=== PATIENT | female | born 1965 | race Caucasian/White ===

== ENCOUNTER 2022-05-01 22:55 | Emergency (ER) | payer OTHER ==
[2022-05-01 23:35] VITALS: TEMP 97.9
[2022-05-01] MEDS ORDERED: SODIUM CHLORIDE 0.9% 1,000 ML IV STA (23:58)
[2022-05-01] MEDS ORDERED: SODIUM CHLORIDE 0.9% 500 ML 500 ML IV STA (23:58)
[2022-05-01] MEDS ORDERED: ONDANSETRON 4 MG/2 ML VIAL IVP STA (23:58)
[2022-05-01] MEDS ORDERED: HYDROmorphone 0.5 MG/0.5 ML SYRINGE IVP STA (23:58)
--- NOTE | 2022-05-02 00:24 | ED ---
Abdominal Pain HPI - General Chief Complaint: Abdominal Pain Stated Complaint: left side abd pain Time Seen by Provider: 05/01/22 23:37 Source: patient, RN notes reviewed Mode of arrival: ambulatory Limitations: no limitations - History of Present Illness Initial Comments: 56-year-old female presents emergency Department chief complaint left flank pain. Patient states it was sudden onset of pain and swelling. Patient states that she had a kidney stone years ago but states this is not the same. Patient doesn't nausea vomiting states she has no dysuria denies any change in bowel habits states it's the left lower rates her left flank, back region. Patient reports no fever no sick contacts. - Related Data Previous Rx's Medication Instructions Recorded Albuterol Inhaler [Ventolin Hfa 2 puff INHALATION Q4HR PRN #8 gm 04/15/22 Inhaler] Albuterol Nebulized [Ventolin 2.5 mg INHALATION Q4H 8 Days #150 04/15/22 Nebulized] ml predniSONE 60 mg PO DAILY #30 tab 04/15/22 Allergies Allergy/AdvReac Type Severity Reaction Status Date / Time morphine Allergy Anaphylaxis Verified 05/01/22 23:30 NSAIDS (Non-Steroidal Allergy Rash/Hives Verified 05/01/22 23:30 Anti-Inflamma shellfish derived [Shellfish] Allergy Anaphylaxis Verified 05/01/22 23:30 Sulfa (Sulfonamide Allergy Rash/Hives Verified 05/01/22 23:30 Antibiotics) Review of Systems ROS Statement: Those systems with pertinent positive or pertinent negative responses have been documented in the HPI. ROS Other: All systems not noted in ROS Statement are negative. Past Medical History Past Medical History: Asthma, COPD Additional Past Medical History / Comment(s): kidney stones History of Any Multi-Drug Resistant Organisms: None Reported Past Surgical History: Cholecystectomy, Hysterectomy, Tonsillectomy Additional Past Surgical History / Comment(s): gastric bypass. lymphectomy left breast, Smoking Status: Never smoker Past Alcohol Use History: None Reported Past Drug Use History: None Reported General Exam Limitations: no limitations General appearance: alert, in no apparent distress Head exam: Present: atraumatic, normocephalic, normal inspection Eye exam: Present: normal appearance, PERRL, EOMI. Absent: scleral icterus, conjunctival injection, periorbital swelling ENT exam: Present: normal exam, mucous membranes moist Neck exam: Present: normal inspection, full ROM. Absent: tenderness, meningismus, lymphadenopathy Respiratory exam: Present: normal lung sounds bilaterally. Absent: respiratory distress, wheezes, rales, rhonchi, stridor Cardiovascular Exam: Present: regular rate, normal rhythm, normal heart sounds. Absent: systolic murmur, diastolic murmur, rubs, gallop, clicks GI/Abdominal exam: Present: soft, tenderness, normal bowel sounds. Absent: distended, guarding, rebound, rigid Back exam: Present: CVA tenderness (L). Absent: CVA tenderness (R) Neurological exam: Present: alert Course Vital Signs 05/01/22 05/02/22 23:30 00:30 Temperature 97.9 F Pulse Rate 72 50 L Respiratory 26 H 16 Rate Blood Pressure 162/87 163/89 O2 Sat by Pulse 98 100 Oximetry Medical Decision Making - Medical Decision Making Was pt. sent in by a medical professional or institution (, PA, SOLUTION ANALYST, urgent care, hospital, or longterm...) When possible be specific @ -No Did you speak to anyone other than the patient for history (EMS, parent, family, police, friend...)? What history was obtained from this source @ -No Did you review nursing and triage notes (agree or disagree)? Why? @ -I reviewed and agree with nursing and triage notes Were old charts reviewed (outside hosp., previous admission, EMS record, old EKG, old radiological studies, urgent care reports/EKG's, longterm records)? Report findings @ -No old charts were reviewed Differential Diagnosis (chest pain, altered mental status, abdominal pain women, abdominal pain men, vaginal bleeding, weakness, fever, dyspnea, syncope, headache, dizziness, GI bleed, back pain, seizure, CVA, palpatations, mental health, musculoskeletal)? @ -nDifferential Abdominal Pain Women: Appendicitis, Cholecystitis, diverticulosis, ischemic bowel, pancreatitis, hepatitis, UTI, gastroenteritis, AAA, incarcerated hernia, bowel obstruction, constipation, inflammatory bowel, hepatitis, peptic ulcer disease, splenic infarction, perforated viscus, vulvitis, ovarian torsion, PID, kidney stone, placenta abruption, this is not meant to be an all-inclusive list EKG interpreted by me (3pts min.). @ -None X-rays interpreted by me (1pt min.). @ -None done CT interpreted by me (1pt min.). @ -CT of abdomen and pelvis shows left ureteral calculi 4 mm U/S interpreted by me (1pt. min.). @ -None done What testing was considered but not performed or refused? (CT, X-rays, U/S, labs)? Why? @ -None What meds were considered but not given or refused? Why? @ -None Did you discuss the management of the patient with other professionals (professionals i.e. , PA, SOLUTION ANALYST, lab, RT, psych nurse, administrator social welfare, utility maintenance worker, teacher, chairman & chief executive officer, case coordinator)? Give summary @ -No Was smoking cessation discussed for >3mins.? @ -No Was critical care preformed (if so, how long)? @ -No Were there social determinants of health that impacted care today? How? (Homelessness, low income, unemployed, alcoholism, drug addiction, transportation, low edu. Level, literacy, decrease access to med. care, [facility], rehab)? @ -No Was there de-escalation of care discussed even if they declined (Discuss DNR or withdrawal of care, Hospice)? DNR status @ -No What co-morbidities impacted this encounter? (DM, HTN, Smoking, COPD, CAD, Cancer, CVA, ARF, Chemo, Hep., AIDS, mental health diagnosis, sleep apnea, morbid obesity)? @ -None Was patient admitted / discharged? Hospital course, mention meds given and route, prescriptions, significant lab abnormalities, going to OR and other pertinent info. @ -Discharge patient's pain is greatly improved this time patient has a 4 mm ureteral calculi. Patient discharged in stable condition with pain management return parameters were discussed. Undiagnosed new problem with uncertain prognosis? @ -No Drug Therapy requiring intensive monitoring for toxicity (Heparin, Nitro, Insulin, Cardizem)? @ -No Were any procedures done? @ -No Diagnosis/symptom? @ -Left ureteral calculi Acute, or Chronic, or Acute on Chronic? @ -Acute Uncomplicated (without systemic symptoms) or Complicated (systemic symptoms)? @ -Uncomplicated Side effects of treatment? @ -No Exacerbation, Progression, or Severe Exacerbation? @ -No Poses a threat to life or bodily function? How? (Chest pain, [place], [place], pneumonia, PE, COPD, DKA, ARF, appy, cholecystitis, CVA, Diverticulitis, Homicidal, Suicidal, threat to staff... and all critical care pts) @ -No - Lab Data Result diagrams: 05/02/22 00:19 05/02/22 00:19 Lab Results 05/02/22 05/02/22 05/02/22 Range/Units 00:19 00:19 02:29 WBC 12.0 H (3.8-10.6) k/uL RBC 4.93 (3.80-5.40) m/uL Hgb 14.8 (11.4-16.0) gm/dL Hct 46.3 H (34.0-46.0) % MCV 94.1 (80.0-100.0) fL MCH 30.0 (25.0-35.0) pg MCHC 31.9 (31.0-37.0) g/dL RDW 13.9 (11.5-15.5) % Plt Count 236 (150-450) k/uL MPV 7.8 Neutrophils % 59 % Lymphocytes % 33 % Monocytes % 4 % Eosinophils % 3 % Basophils % 0 % Neutrophils # 7.1 (1.3-7.7) k/uL Lymphocytes # 3.9 (1.0-4.8) k/uL Monocytes # 0.5 (0-1.0) k/uL Eosinophils # 0.3 (0-0.7) k/uL Basophils # 0.1 (0-0.2) k/uL Sodium 138 (137-145) mmol/L Potassium 5.5 H (3.5-5.1) mmol/L Chloride 109 H (98-107) mmol/L Carbon Dioxide 20 L (22-30) mmol/L Anion Gap 9 mmol/L BUN 19 H (7-17) mg/dL Creatinine 0.83 (0.52-1.04) mg/dL Est GFR (CKD-EPI)AfAm >90 (>60 ml/min/1.73 sqM) Est GFR (CKD-EPI)NonAf 81 (>60 ml/min/1.73 sqM) Glucose 137 H (74-99) mg/dL Calcium 9.7 (8.4-10.2) mg/dL Total Bilirubin 1.2 (0.2-1.3) mg/dL AST 47 H (14-36) U/L ALT 23 (4-34) U/L Alkaline Phosphatase 87 (38-126) U/L Total Protein 8.0 (6.3-8.2) g/dL Albumin 4.9 (3.5-5.0) g/dL Lipase 109 (23-300) U/L Urine Color Yellow Urine Appearance Clear (Clear) Urine pH 5.5 (5.0-8.0) Ur Specific Leonard 1.016 (1.001-1.035) Urine Protein Negative (Negative) Urine Glucose (UA) Negative (Negative) Urine Ketones Trace H (Negative) Urine Blood Moderate H (Negative) Urine Nitrite Negative (Negative) Urine Bilirubin Negative (Negative) Urine Urobilinogen <2.0 (<2.0) mg/dL Ur Leukocyte Esterase Negative (Negative) Urine RBC 92 H (0-5) /hpf Urine WBC 1 (0-5) /hpf Ur Squamous Epith Cells <1 (0-4) /hpf Calcium Oxalate Crystal Rare H (None) /hpf Urine Mucus Occasional H (None) /hpf Urine Yeast (Budding) Rare H (None) /hpf Disposition Clinical Impression: Left ureteral calculus Disposition: HOME SELF-CARE Condition: Stable Instructions (If sedation given, give patient instructions): Kidney Stones (ED) Additional Instructions: Please return to the Emergency Department if symptoms worsen or any other concerns. Is patient prescribed a controlled substance at d/c from ED?: No Referrals: None,Stated [Primary Care Provider] - 1-2 days Fabio Duke MD [STAFF PHYSICIAN] - 1-2 days Time of Disposition: 02:57
[2022-05-02 00:38] LABS: Basophils # (A) 0.1 k/uL (0-0.2); Basophils % (A) 0 %; Eosinophils # (A) 0.3 k/uL (0-0.7); Eosinophils % (A) 3 %; HCT 46.3 % (34.0-46.0); HGB 14.8 gm/dL (11.4-16.0); Lymphocytes # (A) 3.9 k/uL (1.0-4.8); Lymphocytes % (A) 33 %; MCHC 31.9 g/dL (31.0-37.0); MCV 94.1 fL (80.0-100.0); Mean Platelet Volume 7.8; Monocytes # (A) 0.5 k/uL (0-1.0); Monocytes % (A) 4 %; Neutrophils # (A) 7.1 k/uL (1.3-7.7); Neutrophils % (A) 59 %; Platelet Count 236 k/uL (150-450); RBC 4.93 m/uL (3.80-5.40); RDW 13.9 % (11.5-15.5)
[2022-05-02] MEDS ORDERED: HYDROmorphone 0.5 MG/0.5 ML SYRINGE IVP STA ×2 (00:43→01:38)
[2022-05-02 00:48] LABS: ALT 23 U/L (4-34); AST 47 U/L (14-36); African American GFR (CKD) >90 (>60 ml/min/1.73 sqM); Albumin 4.9 g/dL (3.5-5.0); Alkaline Phosphatase 87 U/L (38-126); Anion Gap 9 mmol/L; Blood Urea Nitrogen 19 mg/dL (7-17); Calcium 9.7 mg/dL (8.4-10.2); Carbon Dioxide 20 mmol/L (22-30); Chloride 109 mmol/L (98-107); Glucose 137 mg/dL (74-99); Lipase 109 U/L (23-300); Non-African American GFR(CKD) 81 (>60 ml/min/1.73 sqM); Potassium 5.5 mmol/L (3.5-5.1); Sodium 138 mmol/L (137-145); Total Bilirubin 1.2 mg/dL (0.2-1.3)
--- NOTE | 2022-05-02 01:01 | CT ---
EXAMINATION TYPE: CT abdomen pelvis wo con DATE OF EXAM: 05/02/2022 COMPARISON: None HISTORY: lt flank pain CT DLP: 563.2 mGycm Automated exposure control for dose reduction was used. Images obtained from the diaphragm to the floor the pelvis with no contrast. Lung bases are clear. No pleural effusion. Heart size is normal. No pericardial effusion. Liver spleen appear intact. There is previous gastric bariatric surgery. There are clips from cholecy stectomy. No evidence of pancreatic mass. The bile ducts are nondilated. Left kidney is enlarged with hydronephrosis and hydroureter. There is obstructing 4 mm calculus in th e lower left ureter. Bladder distends smoothly. No inguinal hernia. No free fluid in the pelvis. No r etroperitoneal adenopathy. Right kidney shows normal size and contour with no hydronephrosis. No adre nal mass. There is no mesenteric edema. No ascites or free air. No sign of a bowel obstruction. Appendix appear s to be posterior and appears normal. The lumbar vertebrae have normal alignment. Posterior element are intact. No compression fracture. [place] pelvis is intact. The hip joints are intact. IMPRESSION: Obstructing calculus in the lower left ureter with hydronephrosis and hydroureter. Normal appendix. Previous gastric bariatric surgery. 6 mm calculus upper pole left kidney.
[2022-05-02] MEDS ORDERED: diphenhydrAMINE 50 MG/ML 1 ML VIAL IVP STA (01:38)
[2022-05-02] MEDS ORDERED: KETOROLAC 15 MG/ML 1 ML VIAL IVP STA (01:38)
[2022-05-02] MEDS ORDERED: SODIUM CHLORIDE 0.9% 1,000 ML IV ONE (01:38)
[2022-05-02 02:52] LABS: Appearance,Urine Clear (Clear); Bilirubin,Urine Negative (Negative); Blood,Urine Moderate (Negative); Budding Yeast,Urine Rare /hpf; Calcium Oxalate Crystals,Urine Rare /hpf; Color,Urine Yellow; Glucose,Urine (UA) Negative (Negative); Ketones,Urine Trace (Negative); Leukocyte Esterase,Urine Negative (Negative); Mucus,Urine Occasional /hpf; Nitrite,Urine Negative (Negative); PH, Urine 5.5 (5.0-8.0); Protein,Urine Negative (Negative); RBC,Urine 92 /hpf (0-5); Specific Gravity,Urine 1.016 (1.001-1.035); Squamous Epithelial Cell,Urine <1 /hpf (0-4); Urobilinogen,Urine <2.0 mg/dL (<2.0); WBC,Urine 1 /hpf (0-5)
[2022-05-02] MEDS ORDERED: ONDANSETRON 4 MG ODT STARTER PACK 2 TAB BTL PO STA (02:56)
[2022-05-02] MEDS ORDERED: ACET/COD 300 MG/30 MG STARTER PACK 6 TAB BTL PO STA (02:56)
[2022-05-02 03:07] VITALS: BP 115/74; PULSE 84; RESP 18
== END 2022-05-02 03:06 | disposition home or self-care (01) ==
LOC: EC 22:55
DX: N13.2 Hydronephrosis with renal and ureteral calculous obstruction (principal); J44.9 Chronic obstructive pulmonary disease, unspecified; Z88.1 Allergy status to other antibiotic agents; Z88.2 Allergy status to sulfonamides; Z88.6 Allergy status to analgesic agent; Z79.899 Other long term (current) drug therapy
CPT/HCPCS: 99284 ×2; 96374 ×2; 96375 ×4; 96376 ×3; 96361 ×2; 36415; 80053; 83690; 85025; 81001; 74176; J1200; J2405; J1885; S0119; J1170

== ENCOUNTER 2022-05-08 09:06 | Emergency (ER) | payer OTHER ==
[2022-05-08 09:11] VITALS: TEMP 97.7
[2022-05-08] MEDS ORDERED: SODIUM CHLORIDE 0.9% 1,000 ML IV STA (09:47)
[2022-05-08] MEDS ORDERED: KETOROLAC 15 MG/ML 1 ML VIAL IVP STA (09:47)
[2022-05-08] MEDS ORDERED: ONDANSETRON 4 MG/2 ML VIAL IVP STA (09:47)
[2022-05-08] MEDS ORDERED: fentaNYL (PF) 50 MCG/ML 2 ML AMP IVP STA (09:50)
--- NOTE | 2022-05-08 09:53 | ED ---
General Adult HPI - General Chief complaint: Abdominal Pain Stated complaint: abd pain Time Seen by Provider: 05/08/22 09:27 Source: patient, RN notes reviewed, old records reviewed Mode of arrival: ambulatory Limitations: no limitations - History of Present Illness Initial comments: 56-year-old female presents emergency room with left flank pain since 5:30 this morning. was seen last week and told she had a kidney stone.. States pain had resolved and then recurred at 5:30 in the morning causing her to have nausea vomiting. Does have a history of COPD asthma and kidney stones. -: hour(s) (19) Location: left (flank) Severity scale (1-10): 9 Consistency: constant Improves with: none Worsens with: none Associated Symptoms: nausea/vomiting - Related Data Home Medications Medication Instructions Recorded Confirmed Acetaminophen [Tylenol Extra 1,000 mg PO Q6H PRN 05/08/22 05/08/22 Strength] Albuterol Inhaler [Ventolin Hfa 2 puff INHALATION RT-Q4H PRN 05/08/22 05/08/22 Inhaler] Albuterol Nebulized [Ventolin 2.5 mg INHALATION RT-Q4H PRN 05/08/22 05/08/22 Nebulized] Allergies Allergy/AdvReac Type Severity Reaction Status Date / Time clarithromycin [From Biaxin] Allergy Rash/Hives Verified 05/08/22 09:28 morphine Allergy Anaphylaxis Verified 05/08/22 09:28 NSAIDS (Non-Steroidal Allergy Rash/Hives Verified 05/08/22 09:28 Anti-Inflamma Penicillins Allergy Rash/Hives Verified 05/08/22 09:28 shellfish derived [Shellfish] Allergy Anaphylaxis Verified 05/08/22 09:28 Sulfa (Sulfonamide Allergy Rash/Hives Verified 05/08/22 09:28 Antibiotics) Review of Systems ROS Statement: Those systems with pertinent positive or pertinent negative responses have been documented in the HPI. ROS Other: All systems not noted in ROS Statement are negative. Past Medical History Past Medical History: Asthma, COPD Additional Past Medical History / Comment(s): kidney stones History of Any Multi-Drug Resistant Organisms: None Reported Past Surgical History: Cholecystectomy, Hysterectomy, Tonsillectomy Additional Past Surgical History / Comment(s): gastric bypass. lymphectomy left breast, Smoking Status: Never smoker Past Alcohol Use History: None Reported Past Drug Use History: None Reported General Exam Limitations: no limitations General appearance: alert, in no apparent distress Head exam: Present: atraumatic, normocephalic, normal inspection Eye exam: Present: normal appearance. Absent: scleral icterus, conjunctival injection, periorbital swelling, periorbital tenderness ENT exam: Present: mucous membranes moist Neck exam: Absent: tenderness, meningismus Respiratory exam: Absent: respiratory distress, accessory muscle use Cardiovascular Exam: Present: regular rate GI/Abdominal exam: Present: soft. Absent: distended Extremities exam: Present: full ROM, normal capillary refill. Absent: tender ness, pedal edema Back exam: Present: full ROM, CVA tenderness (L). Absent: CVA tenderness (R), paraspinal tenderness, vertebral tenderness, rash noted Neurological exam: Present: alert, oriented X3, CN II-XII intact Psychiatric exam: Present: normal affect, normal mood Skin exam: Present: warm, dry, normal color. Absent: cyanosis, diaphoretic, petechiae, pallor Course Vital Signs 05/08/22 05/08/22 09:09 11:38 Temperature 97.7 F 97.7 F Pulse Rate 87 68 Respiratory 24 18 Rate Blood Pressure 154/74 131/87 O2 Sat by Pulse 98 Oximetry Medical Decision Making - Medical Decision Making Patient presents with left flank pain since 5:30 this morning. Known history of kidney stone. History of asthma, COPD, kidney stones, cholecystectomy, hysterectomy Patient is afebrile. No evidence of leukocytosis. Electrolytes are unremarkable. Kidney functions normal. Urinalysis shows moderate blood with no evidence of infection. CT performed on shows an obstructing calculus in the lower left ureter with hydronephrosis and hydroureter. Normal appendix. 6 mm calculus upper pole left kidney. Patient was given IV fluids, Toradol, fentanyl and Zofran with relief of her pravin n. She is agreeable to being discharged home to follow-up with urology. Strict return parameters were discussed. Case was discussed with Dr. Holloway. Was pt. sent in by a medical professional or institution (, PA, EXTRUSION DIE REPAIR MANAGER, urgent care, hospital, or intermediate...) When possible be specific @ -No Did you speak to anyone other than the patient for history (EMS, parent, family, police, friend...)? What history was obtained from this source @ -No Did you review nursing and triage notes (agree or disagree)? Why? @ -I reviewed and agree with nursing and triage notes Were old charts reviewed (outside hosp., previous admission, EMS record, old EKG, old radiological studies, urgent care reports/EKG's, intermediate records)? Report findings @ -yes last ER visit and CT report Differential Diagnosis (chest pain, altered mental status, abdominal pain women, abdominal pain men, vaginal bleeding, weakness, fever, dyspnea, syncope, headache, dizziness, GI bleed, back pain, seizure, CVA, palpatations, mental health, musculoskeletal)? @ -Pyelonephritis, nephrolithiasis, cystitis, UTI this is not an all inclusive list EKG interpreted by me (3pts min.). @ -n/a X-rays interpreted by me (1pt min.). @ -None done CT interpreted by me (1pt min.). @ -None done U/S interpreted by me (1pt. min.). @ -None done What testing was considered but not performed or refused? (CT, X-rays, U/S, labs)? Why? @ -CT was considered however was performed on 05/02 showing left renal calculus. Patient states pain is the same as previous visit. Resolved after pain medication IV fluids What meds were considered but not given or refused? Why? @ -None Did you discuss the management of the patient with other professionals (professionals i.e. , PA, EXTRUSION DIE REPAIR MANAGER, lab, RT, psych nurse, social work program coordinator, plisse machine operator, teacher, worldwide chief creative officer, community case manager)? Give summary @ -No Was smoking cessation discussed for >3mins.? @ -No Was critical care preformed (if so, how long)? @ -No Were there social determinants of health that impacted care today? How? (Homelessness, low income, unemployed, alcoholism, drug addiction, transportation, low edu. Level, literacy, decrease access to med. care, [facility], rehab)? @ -No Was there de-escalation of care discussed even if they declined (Discuss DNR or withdrawal of care, Hospice)? DNR status @ -No What co-morbidities impacted this encounter? (DM, HTN, Smoking, COPD, CAD, Cancer, CVA, ARF, Chemo, Hep., AIDS, mental health diagnosis, sleep apnea, morbid obesity)? @ -Asthma, COPD, kidney stones, cholecystectomy, hysterectomy Was patient admitted / discharged? Hospital course, mention meds given and route, prescriptions, significant lab abnormalities, going to OR and other pertinent info. @ -Discharged Undiagnosed new problem with uncertain prognosis? @ -No Drug Therapy requiring intensive monitoring for toxicity (Heparin, Nitro, Insulin, Cardizem)? @ -No Were any procedures done? @ -No Diagnosis/symptom? @ -Left kidney stone Acute, or Chronic, or Acute on Chronic? @ -Acute Uncomplicated (without systemic symptoms) or Complicated (systemic symptoms)? @ -Uncomplicated Side effects of treatment? @ -No Exacerbation, Progression, or Severe Exacerbation? @ -No Poses a threat to life or bodily function? How? (Chest pain, [place], [place], pneumonia, PE, COPD, DKA, ARF, appy, cholecystitis, CVA, Diverticulitis, Homicidal, Suicidal, threat to staff... and all critical care pts) @ -No - Lab Data Result diagrams: 05/08/22 10:02 05/08/22 10:02 Lab Results 05/08/22 05/08/22 05/08/22 Range/Units 10:02 10:02 10:02 WBC 9.0 (3.8-10.6) k/uL RBC 4.77 (3.80-5.40) m/uL Hgb 14.5 (11.4-16.0) gm/dL Hct 44.4 (34.0-46.0) % MCV 93.1 (80.0-100.0) fL MCH 30.4 (25.0-35.0) pg MCHC 32.7 (31.0-37.0) g/dL RDW 13.5 (11.5-15.5) % Plt Count 239 (150-450) k/uL MPV 7.6 Neutrophils % 67 % Lymphocytes % 21 % Monocytes % 7 % Eosinophils % 3 % Basophils % 0 % Neutrophils # 6.0 (1.3-7.7) k/uL Lymphocytes # 1.9 (1.0-4.8) k/uL Monocytes # 0.6 (0-1.0) k/uL Eosinophils # 0.3 (0-0.7) k/uL Basophils # 0.0 (0-0.2) k/uL Sodium 140 (137-145) mmol/L Potassium 3.5 (3.5-5.1) mmol/L Chloride 108 H (98-107) mmol/L Carbon Dioxide 23 (22-30) mmol/L Anion Gap 9 mmol/L BUN 19 H (7-17) mg/dL Creatinine 0.93 (0.52-1.04) mg/dL Est GFR (CKD-EPI)AfAm 81 (>60 ml/min/1.73 sqM) Est GFR (CKD-EPI)NonAf 70 (>60 ml/min/1.73 sqM) Glucose 96 (74-99) mg/dL Plasma Lactic Acid Jeff (0.7-2.0) mmol/L Calcium 9.5 (8.4-10.2) mg/dL Total Bilirubin 0.7 (0.2-1.3) mg/dL AST 24 (14-36) U/L ALT 21 (4-34) U/L Alkaline Phosphatase 74 (38-126) U/L Total Protein 7.1 (6.3-8.2) g/dL Albumin 4.2 (3.5-5.0) g/dL Amylase 64 (30-110) U/L Lipase 105 (23-300) U/L Urine Color Yellow Urine Appearance Clear (Clear) Urine pH 5.5 (5.0-8.0) Ur Specific Angelica 1.033 (1.001-1.035) Urine Protein 1+ H (Negative) Urine Glucose (UA) Negative (Negative) Urine Ketones 1+ H (Negative) Urine Blood Moderate H (Negative) Urine Nitrite Negative (Negative) Urine Bilirubin 1+ H (Negative) Urine Urobilinogen 2.0 (<2.0) mg/dL Ur Leukocyte Esterase Negative (Negative) Urine RBC 119 H (0-5) /hpf Urine WBC 3 (0-5) /hpf Ur Squamous Epith Cells 2 (0-4) /hpf Urine Mucus Many H (None) /hpf 05/08/22 Range/Units 10:02 WBC (3.8-10.6) k/uL RBC (3.80-5.40) m/uL Hgb (11.4-16.0) gm/dL Hct (34.0-46.0) % MCV (80.0-100.0) fL MCH (25.0-35.0) pg MCHC (31.0-37.0) g/dL RDW (11.5-15.5) % Plt Count (150-450) k/uL MPV Neutrophils % % Lymphocytes % % Monocytes % % Eosinophils % % Basophils % % Neutrophils # (1.3-7.7) k/uL Lymphocytes # (1.0-4.8) k/uL Monocytes # (0-1.0) k/uL Eosinophils # (0-0.7) k/uL Basophils # (0-0.2) k/uL Sodium (137-145) mmol/L Potassium (3.5-5.1) mmol/L Chloride (98-107) mmol/L Carbon Dioxide (22-30) mmol/L Anion Gap mmol/L BUN (7-17) mg/dL Creatinine (0.52-1.04) mg/dL Est GFR (CKD-EPI)AfAm (>60 ml/min/1.73 sqM) Est GFR (CKD-EPI)NonAf (>60 ml/min/1.73 sqM) Glucose (74-99) mg/dL Plasma Lactic Acid Jeff 1.2 (0.7-2.0) mmol/L Calcium (8.4-10.2) mg/dL Total Bilirubin (0.2-1.3) mg/dL AST (14-36) U/L ALT (4-34) U/L Alkaline Phosphatase (38-126) U/L Total Protein (6.3-8.2) g/dL Albumin (3.5-5.0) g/dL Amylase (30-110) U/L Lipase (23-300) U/L Urine Color Urine Appearance (Clear) Urine pH (5.0-8.0) Ur Specific Angelica (1.001-1.035) Urine Protein (Negative) Urine Glucose (UA) (Negative) Urine Ketones (Negative) Urine Blood (Negative) Urine Nitrite (Negative) Urine Bilirubin (Negative) Urine Urobilinogen (<2.0) mg/dL Ur Leukocyte Esterase (Negative) Urine RBC (0-5) /hpf Urine WBC (0-5) /hpf Ur Squamous Epith Cells (0-4) /hpf Urine Mucus (None) /hpf Disposition Clinical Impression: Calculus of kidney Disposition: HOME SELF-CARE Condition: Good Instructions (If sedation given, give patient instructions): Kidney Stones (ED) Additional Instructions: Increase fluid intake. Follow-up with Dr. Baum this week. Return to the emergency room with any new or concerning symptoms. Is patient prescribed a controlled substance at d/c from ED?: No Referrals: Nonstaff,Physician [Primary Care Provider] - 1-2 days Hima Baum MD [STAFF PHYSICIAN] - 1-2 days Time of Disposition: 11:26
[2022-05-08 10:12] LABS: Basophils % (A) 0 %; Eosinophils # (A) 0.3 k/uL (0-0.7); Eosinophils % (A) 3 %; HCT 44.4 % (34.0-46.0); HGB 14.5 gm/dL (11.4-16.0); Lymphocytes # (A) 1.9 k/uL (1.0-4.8); Lymphocytes % (A) 21 %; MCH 30.4 pg (25.0-35.0); MCHC 32.7 g/dL (31.0-37.0); MCV 93.1 fL (80.0-100.0); Mean Platelet Volume 7.6; Monocytes # (A) 0.6 k/uL (0-1.0); Monocytes % (A) 7 %; Neutrophils % (A) 67 %; Platelet Count 239 k/uL (150-450); RBC 4.77 m/uL (3.80-5.40); RDW 13.5 % (11.5-15.5)
[2022-05-08 10:30] LABS: Albumin 4.2 g/dL (3.5-5.0); Calcium 9.5 mg/dL (8.4-10.2); Potassium 3.5 mmol/L (3.5-5.1); Total Bilirubin 0.7 mg/dL (0.2-1.3); Total Protein 7.1 g/dL (6.3-8.2)
[2022-05-08 10:57] LABS: Appearance,Urine Clear (Clear); Bilirubin,Urine 1+ (Negative); Blood,Urine Moderate (Negative); Color,Urine Yellow; Glucose,Urine (UA) Negative (Negative); Ketones,Urine 1+ (Negative); Leukocyte Esterase,Urine Negative (Negative); Mucus,Urine Many /hpf; Nitrite,Urine Negative (Negative); PH, Urine 5.5 (5.0-8.0); Protein,Urine 1+ (Negative); RBC,Urine 119 /hpf (0-5); Specific Gravity,Urine 1.033 (1.001-1.035); Squamous Epithelial Cell,Urine 2 /hpf (0-4); WBC,Urine 3 /hpf (0-5)
[2022-05-08 11:41] VITALS: BP 131/87; PULSE 68; RESP 18
== END 2022-05-08 11:38 | disposition home or self-care (01) ==
LOC: EC 09:06
DX: N20.0 Calculus of kidney (principal); J44.9 Chronic obstructive pulmonary disease, unspecified; Z88.0 Allergy status to penicillin; Z88.1 Allergy status to other antibiotic agents; Z88.2 Allergy status to sulfonamides; Z88.6 Allergy status to analgesic agent; Z88.8 Allergy status to other drugs, medicaments and biological substances
CPT/HCPCS: 36415; 80053; 82150; 83605; 83690; 85025; 81001; 99284; 96374; 96375 ×2; 96361; J2405; J3010; J1885

== ENCOUNTER 2022-06-02 10:45 | Emergency (ER) | payer OTHER ==
[2022-06-02 10:57] VITALS: TEMP 97.3
[2022-06-02] MEDS ORDERED: LORazepam 2 MG/ML INJ IV STA (11:12)
--- NOTE | 2022-06-02 11:15 | ED ---
General Adult HPI - General Chief complaint: Shortness of Breath Stated complaint: SOB Time Seen by Provider: 06/02/22 10:55 Source: patient, RN notes reviewed, old records reviewed Mode of arrival: ambulatory Limitations: no limitations - History of Present Illness Initial comments: This is a 56-year-old female presents emergency Department stating that she has a history of COPD. Patient states she's been feeling short of breath lately and been doing her nebulizer but she feels as though it's not working very well. Patient states she wants an inhaler and steroids if she can get because she thinks she needs it. Patient states she also has anxiety and this could be anxiety as well per patient denies chest pain or palpitations. Patient denies any fever chills or cough per patient denies any lightheadedness or dizziness. Patient denies abdominal pain patient denies nausea vomiting diarrhea. Patient denies any leg swelling or calf tenderness. - Related Data Home Medications Medication Instructions Recorded Confirmed Acetaminophen [Tylenol Extra 1,000 mg PO Q6H PRN 05/08/22 06/02/22 Strength] Albuterol Inhaler [Ventolin Hfa 2 puff INHALATION RT-Q4H PRN 05/08/22 06/02/22 Inhaler] Albuterol Nebulized [Ventolin 2.5 mg INHALATION RT-Q4H PRN 05/08/22 06/02/22 Nebulized] Previous Rx's Medication Instructions Recorded Albuterol Inhaler [Ventolin Hfa 1 - 2 puff INHALATION Q6HR PRN #2 06/02/22 Inhaler] each Allergies Allergy/AdvReac Type Severity Reaction Status Date / Time clarithromycin [From Biaxin] Allergy Rash/Hives Verified 06/02/22 12:41 morphine Allergy Anaphylaxis Verified 06/02/22 12:41 NSAIDS (Non-Steroidal Allergy Rash/Hives Verified 06/02/22 12:41 Anti-Inflamma Penicillins Allergy Rash/Hives Verified 06/02/22 12:41 shellfish derived [Shellfish] Allergy Anaphylaxis Verified 06/02/22 12:41 Sulfa (Sulfonamide Allergy Rash/Hives Verified 06/02/22 12:41 Antibiotics) Review of Systems ROS Statement: Those systems with pertinent positive or pertinent negative responses have been documented in the HPI. ROS Other: All systems not noted in ROS Statement are negative. Past Medical History Past Medical History: Asthma, COPD Additional Past Medical History / Comment(s): kidney stones History of Any Multi-Drug Resistant Organisms: None Reported Past Surgical History: Cholecystectomy, Hysterectomy, Tonsillectomy Additional Past Surgical History / Comment(s): gastric bypass. lymphectomy left breast, Smoking Status: Former smoker Past Alcohol Use History: None Reported Past Drug Use History: None Reported General Exam - General Exam Comments Initial Comments: GENERAL: Patient is well-developed and well-nourished. Patient is nontoxic and well- hydrated and is in no acute distress. ENT: Neck is soft and supple. No significant lymphadenopathy is noted. Oropharynx is clear. Moist mucous membranes. Neck has full range of motion without eliciting any pain. EYES: The sclera were anicteric and conjunctiva were pink and moist. Extraocular movements were intact and pupils were equal round and reactive to light. Eyelids were unremarkable. PULMONARY: Unlabored respirations. Good breath sounds bilaterally. No audible rales rhonchi or wheezing was noted. CARDIOVASCULAR: There is a regular rate and rhythm without any murmurs gallops or rubs. ABDOMEN: Soft and nontender with normal bowel sounds. SKIN: Skin is clear with no lesions or rashes and otherwise unremarkable. NEUROLOGIC: Patient is alert and oriented x3. Cranial nerves II through XII are grossly intact. Motor and sensory are also intact. Normal speech, volume and content. Symmetrical smile. MUSCULOSKELETAL: Normal extremities with adequate strength and full range of motion. LYMPHATICS: No significant lymphadenopathy is noted PSYCHIATRIC: Patient is mildly anxious. Limitations: no limitations Course Vital Signs 06/02/22 06/02/22 06/02/22 10:53 11:10 12:00 Temperature 97.3 F L Pulse Rate 70 83 72 Respiratory 18 22 20 Rate Blood Pressure 120/57 108/62 99/62 O2 Sat by Pulse 98 97 97 Oximetry Medical Decision Making - Medical Decision Making EKG as read by myself it shows a sinus rhythm at 70 bpm PA interval 153 QRSs 89 Q-T intervals 369 QTC is 390. Patient's EKG shows no ST segment elevation or depression. Was pt. sent in by a medical professional or institution (, PA, QUARTER TRIMMER, urgent care, hospital, or skilled nursing...) When possible be specific @ -No Did you speak to anyone other than the patient for history (EMS, parent, family, police, friend...)? What history was obtained from this source @ -No Did you review nursing and triage notes (agree or disagree)? Why? @ -I reviewed and agree with nursing and triage notes Were old charts reviewed (outside hosp., previous admission, EMS record, old EKG, old radiological studies, urgent care reports/EKG's, skilled nursing records)? Report findings @ -No old charts were reviewed Differential Diagnosis (chest pain, altered mental status, abdominal pain women, abdominal pain men, vaginal bleeding, weakness, fever, dyspnea, syncope, h eadache, dizziness, GI bleed, back pain, seizure, CVA, palpatations, mental health, musculoskeletal)? @ -Differential Dyspnea: Coronary syndrome, arrhythmia, tamponade, asthma, COPD, pulmonary embolism, pneumonia, pneumothorax, pulmonary effusion, anaphylaxis, diabetic ketoacidosis, flailed chest, pulmonary contusion, diaphragmatic rupture, anemia, neuromuscular, this is not meant to be an all-inclusive list. EKG interpreted by me (3pts min.). @ -As above X-rays interpreted by me (1pt min.). @ -Chest x-ray showed no acute abnormality CT interpreted by me (1pt min.). @ -None done U/S interpreted by me (1pt. min.). @ -None done What testing was considered but not performed or refused? (CT, X-rays, U/S, labs)? Why? @ -None What meds were considered but not given or refused? Why? @ -None Did you discuss the management of the patient with other professionals (professionals i.e. , PA, QUARTER TRIMMER, lab, RT, psych nurse, delinquency prevention social worker, delinquency prevention officer, teacher, [place] police officer, nurse case manager)? Give summary @ -No Was smoking cessation discussed for >3mins.? @ -No Was critical care preformed (if so, how long)? @ -No Were there social determinants of health that impacted care today? How? (Homelessness, low income, unemployed, alcoholism, drug addiction, transportation, low edu. Level, literacy, decrease access to med. care, group home, rehab)? @ -No Was there de-escalation of care discussed even if they declined (Discuss DNR or withdrawal of care, Hospice)? DNR status @ -No What co-morbidities impacted this encounter? (DM, HTN, Smoking, COPD, CAD, C ancer, CVA, ARF, Chemo, Hep., AIDS, mental health diagnosis, sleep apnea, morbid obesity)? @ -None Was patient admitted / discharged? Hospital course, mention meds given and route, prescriptions, significant lab abnormalities, going to OR and other pertinent info. @ -Patient was in no respiratory distress while in the emergency department she was oxygenating in the high 90s. Patient had no wheezing on examination. Patient's chest x-ray showed no acute abnormality. Patient will be sent home with an inhaler and the patient will follow-up with a physician when she can find one Undiagnosed new problem with uncertain prognosis? @ -No Drug Therapy requiring intensive monitoring for toxicity (Heparin, Nitro, Insulin, Cardizem)? @ -No Were any procedures done? @ -No Diagnosis/symptom? @ -COPD Acute, or Chronic, or Acute on Chronic? @ -Acute on chronic Uncomplicated (without systemic symptoms) or Complicated (systemic symptoms)? @ -Uncomplicated Side effects of treatment? @ -No Exacerbation, Progression, or Severe Exacerbation? @ -No Poses a threat to life or bodily function? How? (Chest pain, USA, SD, pneumonia, PE, COPD, DKA, ARF, appy, cholecystitis, CVA, Diverticulitis, Homicidal, Suicidal, threat to staff... and all critical care pts) @ -No - Lab Data Result diagrams: 06/02/22 11:32 06/02/22 11:32 Lab Results 06/02/22 06/02/22 Range/Units 11:32 11:32 WBC 5.2 (3.8-10.6) k/uL RBC 4.72 (3.80-5.40) m/uL Hgb 14.2 (11.4-16.0) gm/dL Hct 43.7 (34.0-46.0) % MCV 92.6 (80.0-100.0) fL MCH 30.1 (25.0-35.0) pg MCHC 32.6 (31.0-37.0) g/dL RDW 12.9 (11.5-15.5) % Plt Count 199 (150-450) k/uL MPV 7.6 Neutrophils % 60 % Lymphocytes % 26 % Monocytes % 6 % Eosinophils % 7 % Basophils % 1 % Neutrophils # 3.2 (1.3-7.7) k/uL Lymphocytes # 1.4 (1.0-4.8) k/uL Monocytes # 0.3 (0-1.0) k/uL Eosinophils # 0.3 (0-0.7) k/uL Basophils # 0.0 (0-0.2) k/uL Sodium 141 (137-145) mmol/L Potassium 3.9 (3.5-5.1) mmol/L Chloride 108 H (98-107) mmol/L Carbon Dioxide 26 (22-30) mmol/L Anion Gap 7 mmol/L BUN 11 (7-17) mg/dL Creatinine 0.70 (0.52-1.04) mg/dL Est GFR (CKD-EPI)AfAm >90 (>60 ml/min/1.73 sqM) Est GFR (CKD-EPI)NonAf >90 (>60 ml/min/1.73 sqM) Glucose 92 (74-99) mg/dL Calcium 9.4 (8.4-10.2) mg/dL Magnesium 2.0 (1.6-2.3) mg/dL Total Bilirubin 0.4 (0.2-1.3) mg/dL AST 24 (14-36) U/L ALT 15 (4-34) U/L Alkaline Phosphatase 70 (38-126) U/L Total Protein 6.5 (6.3-8.2) g/dL Albumin 3.8 (3.5-5.0) g/dL Disposition Clinical Impression: COPD (chronic obstructive pulmonary disease) Disposition: HOME SELF-CARE Condition: Good Instructions (If sedation given, give patient instructions): COPD (Chronic Obstructive Pulmonary Disease) (ED) Prescriptions: Albuterol Inhaler [Ventolin Hfa Inhaler] 1 - 2 puff INHALATION Q6HR PRN #2 each PRN Reason: Difficulty breathing Is patient prescribed a controlled substance at d/c from ED?: No Referrals: None,Stated [Primary Care Provider] - 1-2 days Time of Disposition: 12:44
--- NOTE | 2022-06-02 11:23 | XR ---
EXAMINATION TYPE: XR chest 2V DATE OF EXAM: 06/02/2022 COMPARISON: 04/15/2022 HISTORY: Shortness of breath TECHNIQUE: Frontal and lateral views of the chest are obtained. FINDINGS: There are a few surgical clips projecting over the right lateral chest wall. The heart size is normal. The cardiomediastinal silhouette and pulmonary vasculature are within nichelle l limits. There is no focal consolidation, significant pleural effusion, or pneumothorax. IMPRESSION: No acute cardiopulmonary process.
[2022-06-02 12:21] LABS: Basophils % (A) 1 %; Eosinophils # (A) 0.3 k/uL (0-0.7); Eosinophils % (A) 7 %; HCT 43.7 % (34.0-46.0); HGB 14.2 gm/dL (11.4-16.0); Lymphocytes # (A) 1.4 k/uL (1.0-4.8); Lymphocytes % (A) 26 %; MCH 30.1 pg (25.0-35.0); MCHC 32.6 g/dL (31.0-37.0); MCV 92.6 fL (80.0-100.0); Mean Platelet Volume 7.6; Monocytes # (A) 0.3 k/uL (0-1.0); Monocytes % (A) 6 %; Neutrophils # (A) 3.2 k/uL (1.3-7.7); Neutrophils % (A) 60 %; Platelet Count 199 k/uL (150-450); RBC 4.72 m/uL (3.80-5.40); RDW 12.9 % (11.5-15.5); WBC 5.2 k/uL (3.8-10.6)
[2022-06-02 12:28] LABS: ALT 15 U/L (4-34); AST 24 U/L (14-36); African American GFR (CKD) >90 (>60 ml/min/1.73 sqM); Albumin 3.8 g/dL (3.5-5.0); Alkaline Phosphatase 70 U/L (38-126); Anion Gap 7 mmol/L; Blood Urea Nitrogen 11 mg/dL (7-17); Calcium 9.4 mg/dL (8.4-10.2); Carbon Dioxide 26 mmol/L (22-30); Chloride 108 mmol/L (98-107); Glucose 92 mg/dL (74-99); Non-African American GFR(CKD) >90 (>60 ml/min/1.73 sqM); Potassium 3.9 mmol/L (3.5-5.1); Sodium 141 mmol/L (137-145); Total Bilirubin 0.4 mg/dL (0.2-1.3); Total Protein 6.5 g/dL (6.3-8.2)
[2022-06-02 12:33] VITALS: BP 99/62; PULSE 72; RESP 20
== END 2022-06-02 13:00 | disposition home or self-care (01) ==
LOC: EC 10:45
DX: J44.9 Chronic obstructive pulmonary disease, unspecified (principal); Z87.891 Personal history of nicotine dependence; Z88.0 Allergy status to penicillin; Z88.1 Allergy status to other antibiotic agents; Z88.2 Allergy status to sulfonamides; Z88.6 Allergy status to analgesic agent; Z90.49 Acquired absence of other specified parts of digestive tract
CPT/HCPCS: 36415; 93005; 80053; 83735; 85025; 71046; 99285; 96374; J2060

== ENCOUNTER 2022-07-11 09:25 | Day surgery (SDC) | payer OTHER ==
[2022-06-02 10:52] LABS: Basophils % (A) 1 %; Eosinophils # (A) 0.5 k/uL (0-0.7); Eosinophils % (A) 8 %; HCT 43.4 % (34.0-46.0); HGB 14.1 gm/dL (11.4-16.0); Lymphocytes # (A) 1.7 k/uL (1.0-4.8); Lymphocytes % (A) 30 %; MCH 30.5 pg (25.0-35.0); MCHC 32.4 g/dL (31.0-37.0); MCV 94.1 fL (80.0-100.0); Mean Platelet Volume 7.7; Monocytes # (A) 0.3 k/uL (0-1.0); Monocytes % (A) 6 %; Neutrophils # (A) 2.9 k/uL (1.3-7.7); Neutrophils % (A) 54 %; Platelet Count 194 k/uL (150-450); RBC 4.61 m/uL (3.80-5.40); WBC 5.5 k/uL (3.8-10.6)
[2022-06-02 11:08] LABS: ALT 16 U/L (4-34); AST 27 U/L (14-36); African American GFR (CKD) >90 (>60 ml/min/1.73 sqM); Albumin 4.1 g/dL (3.5-5.0); Alkaline Phosphatase 58 U/L (38-126); Anion Gap 8 mmol/L; Blood Urea Nitrogen 11 mg/dL (7-17); Calcium 9.4 mg/dL (8.4-10.2); Carbon Dioxide 27 mmol/L (22-30); Chloride 108 mmol/L (98-107); Glucose 104 mg/dL (74-99); Non-African American GFR(CKD) >90 (>60 ml/min/1.73 sqM); Potassium 4.2 mmol/L (3.5-5.1); Sodium 143 mmol/L (137-145); Total Bilirubin 0.6 mg/dL (0.2-1.3); Total Protein 7.1 g/dL (6.3-8.2)
[2022-06-02 12:52] LABS: Appearance,Urine Cloudy (Clear); Bacteria,Urine Rare /hpf; Bilirubin,Urine Negative (Negative); Blood,Urine Negative (Negative); Calcium Oxalate Crystals,Urine Few /hpf; Color,Urine Yellow; Glucose,Urine (UA) Negative (Negative); Ketones,Urine Negative (Negative); Leukocyte Esterase,Urine Small (Negative); Mucus,Urine Many /hpf; Nitrite,Urine Negative (Negative); PH, Urine 5.5 (5.0-8.0); Protein,Urine Trace (Negative); RBC,Urine <1 /hpf (0-5); Specific Gravity,Urine 1.022 (1.001-1.035); Squamous Epithelial Cell,Urine 5 /hpf (0-4); Urobilinogen,Urine <2.0 mg/dL (<2.0); WBC,Urine 2 /hpf (0-5)
[2022-07-06 09:33] VITALS: BMI 25.7
--- NOTE | 2022-07-11 07:52 | P.HPIHPCON ---
History of Present Illness H&P Date: 07/11/22 Chief Complaint: Left ureteral, renal stone This is a 56-year-old female with history of a 4 mm left-sided ureteral stone and a 6 mm left-sided renal stone. She symptomatic from her stone has failed medical expulsive therapy. Discussed with her the option of left-sided ure teroscopy with holmium laser. Discussed risk of bleeding infection and injury to the ureter. Risk of anesthesia was also discussed with her. She understood all the risk and agreed to proceed Consent for Procedure: I have explained the operation/procedure to the patient, including the risks, benefits, side effects, alternative therapies (including not receiving the prop osed treatment or service), the likelihood of the patient achieving his/her goals, and potential recuperation problems for the procedure/sedation/analgesia, as well as any blood products, if indicated. I also explained to the patient the risks, benefits and side effects of the alternatives, as well as the risks related to not receiving the proposed procedure, care, treatment, or services. Past Medical History Past Medical History: Asthma, Cancer, COPD, Eye Disorder, Hearing Disorder / Deafness Additional Past Medical History / Comment(s): Kidney stones, hx left breast cancer, cataracts, hard of hearing. History of Any Multi-Drug Resistant Organisms: None Reported Past Surgical History: Bariatric Surgery, Breast Surgery, Cholecystectomy, Ear Surgery, Hysterectomy, Tonsillectomy Additional Past Surgical History / Comment(s): Left breast lumpectomy and lymph node removal, left ear drum reconstruction. Past Anesthesia/Blood Transfusion Reactions: No Reported Reaction Smoking Status: Former smoker - Past Family History Mother Family Medical History: Cancer Additional Family Medical History / Comment(s): Brain cancer, pacemaker. Sister(s) Additional Family Medical History / Comment(s): "Heart issues" and had cardiac ablation. Medications and Allergies Home Medications Medication Instructions Recorded Confirmed Type Albuterol Nebulized [Ventolin 2.5 mg INHALATION RT-Q4H PRN 05/08/22 07/06/22 History Nebulized] Albuterol Inhaler [Ventolin Hfa 1 - 2 puff INHALATION Q6HR PRN #2 06/02/22 07/06/22 Rx Inhaler] each HYDROcodone/APAP 5-325MG [Sassafras 1 tab PO Q4HR PRN 07/06/22 07/06/22 History 5-325] Allergies Allergy/AdvReac Type Severity Reaction Status Date / Time adhesive tape Allergy Itching Verified 07/06/22 09:19 clarithromycin [From Biaxin] Allergy Rash/Hives Verified 07/06/22 09:19 morphine Allergy Anaphylaxis Verified 07/06/22 09:19 NSAIDS (Non-Steroidal Allergy Unknown Verified 07/06/22 09:19 Anti-Inflamma Penicillins Allergy Rash/Hives Verified 07/06/22 09:19 shellfish derived [Shellfish] Allergy Anaphylaxis Verified 07/06/22 09:19 Sulfa (Sulfonamide Allergy Rash/Hives Verified 07/06/22 09:19 Antibiotics) Surgical - Exam - General no distress, moderate pain - Eyes normal ocular movement, no pale - ENT normal nares, normal mucosa - Respiratory normal expansion, normal respiratory effort - Abdomen Abdomen: soft, tender (left flank) - Psychiatric oriented to time, oriented to person, oriented to place Results - Labs 06/02/22 10:31 06/02/22 10:31 Assessment and Plan Assessment: OR for left-sided ureteroscopy, holmium laser lithotripsy, stone basketing and stent insertion
[~2022-07-11 09:25] MED LIST: CIPROFLOXACIN/DEXTROSE PMX 400 MG in DEXTROSE/WATER 1 200ML.BAG IVPB PRN; DEXAMETHASONE SOD PHOSPHATE 4 MG/ML 1 ML VIAL IV ONE; HYDROmorphone 0.5 MG/0.5 ML SYRINGE IVP PRN; LACTATED RINGERS 1,000 ML IV SCH; LIDOCAINE 1% (10MG/ML) FOR IV START INTRADERMA PRN; MIDAZOLAM 2 MG/2 ML VIAL IV PRN; ONDANSETRON 4 MG/2 ML VIAL IVP ONE
--- NOTE | 2022-07-11 09:54 | XR ---
EXAMINATION TYPE: XR KUB DATE OF EXAM: 07/11/2022 9:38 AM INDICATION: Patient age:Female; 56 years old; Reason for study: KIDNEY STONE. COMPARISON: CT 05/02/2022 TECHNIQUE: One radiographic view of the abdomen was obtained. FINDINGS: Suture material in the left mid abdomen. Clips present projecting of the pelvis. Right uppe r quadrant clips. The bowel gas pattern is nonspecific without dilated loops of small or large bowel. There is no evidence for organomegaly or pneumoperitoneum. The osseous structures are intact. Pelv ic phleboliths are present. Fecal material and gas are demonstrated throughout the colon and rectum. IMPRESSION: 1. No definitive renal calculus visualized. Consider CT for confirmation. 2. Nonspecific bowel gas pattern without radiographic evidence for acute process.
[2022-07-11] MEDS ORDERED: MIDAZOLAM 2 MG/2 ML VIAL ONE (11:26)
[2022-07-11] MEDS ORDERED: PROPOFOL 10 MG/ML 20 ML VIAL IV ONE (11:26)
[2022-07-11] MEDS ORDERED: fentaNYL (PF) 50 MCG/ML 2 ML AMP ONE (11:26)
[2022-07-11] MEDS ORDERED: LIDOCAINE 2% INJ 20 MG/ML (2 ML VIAL) ONE (11:26)
[2022-07-11] MEDS ORDERED: IOPAMIDOL-370 100ML BTL MISCELLANE ONE (12:04)
[2022-07-11 12:30] VITALS: TEMP 97
--- NOTE | 2022-07-11 12:50 | P.OP ---
Date of Procedure: 07/11/22 Preoperative Diagnosis: Left ureteral, renal stone Postoperative Diagnosis: Left renal stone Procedure(s) Performed: Cystoscopy, left ureteroscopy, holmium laser lithotripsy and stent insertion Implants: 7-Estonian by 24 cm stent in the left ureter Anesthesia: AIDA Surgeon: Olivier Crowley Pathology: none sent Condition: stable Disposition: PACU Indications for Procedure: This is a 56-year-old female with history of a 4 mm left-sided ureteral stone and a 6 mm left-sided renal stone. She symptomatic from her stone has failed medical expulsive therapy. Discussed with her the option of left-sided ureteroscopy with holmium laser. Discussed risk of bleeding infection and injur y to the ureter. Risk of anesthesia was also discussed with her. She understood all the risk and agreed to proceed Operative Findings: Multiple small stones within the lower pole of the kidney that were dusted Description of Procedure: Patient brought to the operating room, general anesthesia was induced. She was prepped and draped in sterile fashion and placed in dorsal lithotomy position. Cystoscopy fitted with 21-Estonian sheath was inserted per urethra, cystoscopy was performed which showed no abnormality within the bladder. Attention was then carried to the left ureteral orifice, semirigid ureteroscope was advanced up the left ureteral orifice and a narrowing was encountered in the distal ureter, I advanced a wire through the ureteroscope and I was able to advance the ureteroscope past the narrowing, the ureteroscope was advanced all the way up to the proximal ureter which showed no evidence of stones, pullback ureteroscopy wa s performed which showed no evidence of stones or injury to the ureter, there was edema at the site of the narrowing but otherwise no additional abnormalities. As ureteroscope was withdrawn, a sensor wire was advanced through. Next an 1113 Estonian access sheath was passed over the wire into the proximal ureter. Next the flexible ureteroscope was inserted through the access sheath, renoscopy was performed which showed multiple small stones within the lower pole. Using the holmium laser the stones were dusted, repeat renoscopy showed no sizable stones or injury to the kidney. Pullback ureteroscopy was performed which showed no injury to the ureter or any ureteral stones, as ureteroscope was withdrawn, s sensor wire was advanced through. Next a ureteral stent was passed over the wire, the proximal curl was visualized on fluoroscopy and the distal curl was visualized using the cystoscope. The bladder was emptied at the end of the case. Patient tolerated procedure well was taken to recovery in stable condition
--- NOTE | 2022-07-11 12:52 | FL ---
Intraoperative/procedural fluoroscopic services were provided. Total fluoroscopy time is 32 seconds w ith a total of 4 submitted images to PACS. Please see the operative/procedural note for further detai ls. DAP: [id number] [id number]
[2022-07-11 13:33] VITALS: RESP 16
[2022-07-11 13:46] VITALS: BP 128/69; PULSE 88
== END 2022-07-11 14:14 | disposition home or self-care (01) ==
LOC: OR 09:25
PROVIDERS: ATTEND Urology
DX: N20.1 Calculus of ureter (principal); J44.9 Chronic obstructive pulmonary disease, unspecified; H91.90 Unspecified hearing loss, unspecified ear; Z90.710 Acquired absence of both cervix and uterus; Z98.84 Bariatric surgery status; Z90.49 Acquired absence of other specified parts of digestive tract; Z90.89 Acquired absence of other organs; Z85.3 Personal history of malignant neoplasm of breast; Z87.891 Personal history of nicotine dependence; Z79.51 Long term (current) use of inhaled steroids; Z88.5 Allergy status to narcotic agent; Z88.0 Allergy status to penicillin; Z88.1 Allergy status to other antibiotic agents; Z88.2 Allergy status to sulfonamides; Z88.6 Allergy status to analgesic agent; Z91.048 Other nonmedicinal substance allergy status
CPT/HCPCS: 52356; 80053; 85025; 81001; 87086; 74420; 74018; C2625; C1769; J2250; J1100; J2405; J3010; J0744; J2704; Q9967; J2001

== ENCOUNTER → 2022-09-19 | Outpatient (CLI) | payer OTHER ==
--- NOTE | 2022-09-19 11:37 | MM ---
Reason for Exam: Hx of breast cancer, conservation therapy. Last mammogram was performed 1 year(s) and 5 month(s) ago. Patient History: Menarche at age 15. First Full-Term at age 32. Late child-bearing (after 32). Postmenopausal. Breast cancer, right, age 54. 2019, Lumpectomy on the Right side. Prior Study Comparison: 10/21/2019 Bilateral Diagnostic Mammogram, Unknown. 04/20/2020 Bilateral Diagnostic Mammogram, Unknown. 04/21/2021 Bilateral Diagnostic Mammogram, Unknown. Tissue Density: The breast tissue is heterogeneously dense. This may lower the sensitivity of mammography. Findings: Analyzed By CAD. Postoperative changes of lumpectomy right breast remain stable. No evidence for recurrent or residual mass. No masses seen within either breast. No suspicious microcalcifications. Overall Assessment: Benign, BI-RAD 2 Management: Diagnostic Mammogram of both breasts in 1 year. . Results were given to the patient verbally at the time of exam. Patient should continue monthly self-breast exams. A clinical breast exam by your physician is recommended on an annual basis. This exam should not preclude additional follow-up of suspicious palpable abnormalities. Note on Jeanette scores and lifetime risk: 1. A Jeanette score greater than 3% is considered moderate risk. If this is the case, consider specialist referral to assess eligibility for a risk reducing agent. 2. If overall lifetime risk for the development of breast cancer is 20% or higher, the patient may qualify for future screening with alternating mammogram and breast MRI. Electronically signed and approved by: Nakul Mcdonald M.D. Radiologis
== END | disposition home or self-care (01) ==
LOC: RADMAMWWP 10:59
PROVIDERS: ATTEND Family Medicine
DX: C50.911 Malignant neoplasm of unspecified site of right female breast (principal); Z78.0 Asymptomatic menopausal state
CPT/HCPCS: 77066; G0279; 77062

== ENCOUNTER 2022-09-26 02:57 | Inpatient (IN) | payer OTHER ==
[2022-09-26] MEDS ORDERED: ETOMIDATE 2 MG/ML 10 ML VIAL IVP STA (03:22)
[2022-09-26] MEDS ORDERED: SUCCINYLCHOLINE CHLORIDE 200 MG/10 ML VIAL IV STA (03:22)
--- NOTE | 2022-09-26 03:25 | ED ---
SOB HPI - General Chief Complaint: Shortness of Breath Stated Complaint: RAJNA Time Seen by Provider: 09/26/22 03:05 Source: patient Mode of arrival: wheelchair Limitations: altered mental status - History of Present Illness Initial Comments: This patient is a 57-year-old woman here to have evaluation for respiratory distress. All the history comes from the patient's as she had severe dyspnea and also appeared delirious. She was not answering questions. Patient's states that symptoms had come on fairly acutely this evening. She did try using home albuterol. They considered coming to the hospital around 10 but state that every time she comes to the hospital she just receives albuterol so they tried using that again at home. Patient's states that when she began to have color change, he states she was turning blue, they decided come to emergency department. MD Complaint: shortness of breath -: hour(s) Consistency: constant Improves With: nothing Worsens With: nothing Known History Of: COPD Associated Symptoms: cough, sputum production Treatments Prior to Arrival: bronchodilator - Related Data Home Oxygen Therapy: No Home Medications Medication Instructions Recorded Confirmed Albuterol Nebulized [Ventolin 2.5 mg INHALATION RT-Q4H PRN 05/08/22 09/26/22 Nebulized] Umeclidinium Brm/Vilanterol Tr 1 puff INHALATION RT-DAILY 07/11/22 09/26/22 [Anoro Ellipta 62.5-25 Mcg INH] Albuterol Inhaler [Ventolin Hfa 1 - 2 puff INHALATION RT-Q6H PRN 09/26/2209/26 Inhaler] Anastrozole 1 mg PO DAILY 09/26/22 09/26/22 Previous Rx's Medication Instructions Recorded predniSONE [Deltasone] See Taper PO DAILY 12 Days #16 tab 10/01/22 Allergies Allergy/AdvReac Type Severity Reaction Status Date / Time adhesive tape Allergy Itching Verified 09/26/22 08:31 clarithromycin [From Biaxin] Allergy Rash/Hives Verified 09/26/22 08:31 morphine Allergy Anaphylaxis Verified 09/26/22 08:31 NSAIDS (Non-Steroidal Allergy Unknown Verified 09/26/22 08:31 Anti-Inflamma Penicillins Allergy Rash/Hives Verified 09/26/22 08:31 shellfish derived [Shellfish] Allergy Anaphylaxis Verified 09/26/22 08:31 Sulfa (Sulfonamide Allergy Rash/Hives Verified 09/26/22 08:31 Antibiotics) Review of Systems ROS Statement: Those systems with pertinent positive or pertinent negative responses have been documented in the HPI. ROS Other: All systems not noted in ROS Statement are negative. Limitations: ROS unobtainable due to patients medical condition Past Medical History Past Medical History: Asthma, Cancer, COPD, Eye Disorder, Hearing Disorder / Deafness Additional Past Medical History / Comment(s): Kidney stones, hx left breast cancer, cataracts, hard of hearing. History of Any Multi-Drug Resistant Organisms: None Reported Past Surgical History: Bariatric Surgery, Breast Surgery, Cholecystectomy, Ear Surgery, Hysterectomy, Tonsillectomy Additional Past Surgical History / Comment(s): Left breast lumpectomy and lymph node removal, left ear drum reconstruction. Past Alcohol Use History: None Reported - Past Family History Mother Additional Family Medical History / Comment(s): Brain cancer, pacemaker. Sister(s) Additional Family Medical History / Comment(s): "Heart issues" and had cardiac ablation. General Exam Limitations: no limitations General appearance: obtunded Head exam: Present: atraumatic, normocephalic Eye exam: Present: normal appearance. Absent: scleral icterus, conjunctival injection ENT exam: Present: mucous membranes dry Neck exam: Present: normal inspection. Absent: tenderness Respiratory exam: Present: respiratory distress, wheezes, rales, accessory muscle use. Absent: rhonchi, stridor Cardiovascular Exam: Present: tachycardia, normal heart sounds. Absent: systolic murmur, diastolic murmur, rubs, gallop GI/Abdominal exam: Present: soft. Absent: distended, tenderness, guarding, rebound, rigid, mass Extremities exam: Present: normal inspection Back exam: Present: normal inspection. Absent: CVA tenderness (R), CVA tenderness (L) Neurological exam: Present: altered Skin exam: Present: warm, dry, mottled. Absent: rash Course Vital Signs 09/26/22 09/26/22 09/26/22 03:04 03:11 03:20 Temperature 97.8 F Pulse Rate 123 H 110 H Respiratory 30 H 16 Rate Blood Pressure 137/11 148/83 O2 Sat by Pulse 55 L 98 Oximetry Fraction of 100 Inspired Oxygen (FIO2) 09/26/22 09/26/22 09/26/22 03:30 03:40 03:42 Temperature Pulse Rate 120 H 112 H Respiratory 14 28 H 33 H Rate Blood Pressure 150/69 120/95 O2 Sat by Pulse 99 99 56 L Oximetry Fraction of Inspired Oxygen (FIO2) 09/26/22 09/26/22 09/26/22 03:50 04:00 04:14 Temperature Pulse Rate 109 H 107 H Respiratory 22 21 Rate Blood Pressure 119/87 110/79 O2 Sat by Pulse 100 100 Oximetry Fraction of 50 Inspired Oxygen (FIO2) 09/26/22 09/26/22 09/26/22 05:00 06:00 07:00 Temperature Pulse Rate 98 80 81 Respiratory 19 20 18 Rate Blood Pressure 94/60 101/76 106/93 O2 Sat by Pulse 100 100 100 Oximetry Fraction of Inspired Oxygen (FIO2) 09/26/22 09/26/22 09/26/22 07:35 07:55 07:58 Temperature 97.2 F L Pulse Rate 72 Respiratory 20 Rate Blood Pressure 96/51 O2 Sat by Pulse 100 Oximetry Fraction of 50 50 Inspired Oxygen (FIO2) 09/26/22 09/26/22 09/26/22 08:00 08:05 08:57 Temperature Pulse Rate 69 69 69 Respiratory 0 L 20 20 Rate Blood Pressure 99/61 108/77 O2 Sat by Pulse 100 99 Oximetry Fraction of 50 Inspired Oxygen (FIO2) 09/26/22 09/26/22 09:00 09:05 Temperature 97 F L Pulse Rate 75 74 Respiratory 17 20 Rate Blood Pressure 95/42 O2 Sat by Pulse 100 Oximetry Fraction of 50 Inspired Oxygen (FIO2) Procedures - Intubation Sedative: Etomidate Paralytic: Succinylcholine Laryngoscope: Celena Size: 3 ET Tube Size: 8 Tube Secured Depth (cm): 20 Tube Secured Location: lips Tube Placement Confirmation: visualized tube passing through cords, equal breath sounds bilaterally, no breath sounds over epigastrium, confirmation by capnometry Patient Tolerated Procedure: well, no complications Intubation Complications: none Medical Decision Making - Medical Decision Making Patient is 57-year-old woman presenting with severe respiratory distress. She was becoming obtunded shortly after arrival and was having cardiac arrhythmia. She was having what appeared to be sinus tachycardia with multiple atrial ect opic beats in the 130s. Pulse oximetry readings were in the low 60s on the nonrebreather mask as interpreted by myself. Again patient is not mentating. The patient is intubated for impending respiratory failure. See the procedure note. The patient was intubated without complication. Additional sedation is provided and patient placed on ventilator. She did receive dose of empiric antibiotics against pneumonia/COPD. The patient's case discussed with admitting group and with the pulmonology mid- level practitioner. The patient had chest x-ray which I interpreted as showing successful end otracheal tube placement. There is nasogastric tube present. There is no pneumothorax. No acute infiltrate. Was pt. sent in by a medical professional or institution (, PA, OBSTETRIC ANAESTHETIST, urgent care, hospital, or [facility]...) When possible be specific @ -[No] Did you speak to anyone other than the patient for history (EMS, parent, family, police, friend...)? What history was obtained from this source @ -[The patient's partner did give history. EMS report. Did you review nursing and triage notes (agree or disagree)? Why? @ -[I reviewed and agree with nursing and triage notes] Were old charts reviewed (outside hosp., previous admission, EMS record, old EKG, old radiological studies, urgent care reports/EKG's, [facility] records)? Report findings @ -[No old charts were reviewed] Differential Diagnosis (chest pain, altered mental status, abdominal pain women, abdominal pain men, vaginal bleeding, weakness, fever, dyspnea, syncope, headache, dizziness, GI bleed, back pain, seizure, CVA, palpatations, mental health, musculoskeletal)? @ -[Differential Dyspnea: Coronary syndrome, arrhythmia, tamponade, asthma, COPD, pulmonary embolism, pneumonia, pneumothorax, pulmonary effusion, anaphylaxis, diabetic ketoacidosis, flailed chest, pulmonary contusion, diaphragmatic rupture, anemia, neuromus cular, this is not meant to be an all-inclusive list. EKG interpreted by me (3pts min.). @ -[As above] I interpreted X-rays interpreted by me (1pt min.). @ -[I interpreted as above CT interpreted by me (1pt min.). @ -[None done] U/S interpreted by me (1pt. min.). @ -[None done] What testing was considered but not performed or refused? (CT, X-rays, U/S, labs)? Why? @ -[None] What meds were considered but not given or refused? Why? @ -[None] Did you discuss the management of the patient with other professionals (professionals i.e. , PA, OBSTETRIC ANAESTHETIST, lab, RT, psych nurse, administrator social welfare, orthodontic band maker, teacher, forest fire management officer, bilingual case manager)? Give summary @ -[Patient's case is discussed with the admitting physician and also with the pulmonology mid-level practitioner Was smoking cessation discussed for >3mins.? @ -[No] Was critical care preformed (if so, how long)? @ -[Yes, 40 minutes Were there social determinants of health that impacted care today? How? (Homelessness, low income, unemployed, alcoholism, drug addiction, transportation, low edu. Level, literacy, decrease access to med. care, assisted, rehab)? @ -[No] Was there de-escalation of care discussed even if they declined (Discuss DNR or withdrawal of care, Hospice)? DNR status @ -[No] What co-morbidities impacted this encounter? (DM, HTN, Smoking, COPD, CAD, Cancer, CVA, ARF, Chemo, Hep., AIDS, mental health diagnosis, sleep apnea, morbid obesity)? @ -[COPD Was patient admitted / discharged? Hospital course, mention meds given and route, prescriptions, significant lab abnormalities, going to OR and other pertinent info. @ -[The patient is admitted to ICU for further care and pulmonology consultation. Empiric dose of antibiotics. Steroids, inhaled medications started area Undiagnosed new problem with uncertain prognosis? @ -[No] Drug Therapy requiring intensive monitoring for toxicity (Heparin, Nitro, Insulin, Cardizem)? @ -[Propofol Were any procedures done? @ -[No] Diagnosis/symptom? @ -[Probable acute exacerbation of COPD Possible pneumonia Acute respiratory failure secondary to COPD exacerbation Acute, or Chronic, or Acute on Chronic? @ -[Acute on chronic Uncomplicated (without systemic symptoms) or Complicated (systemic symptoms)? @ -[Complicated by by respiratory failure Side effects of treatment? @ -[No] Exacerbation, Progression, or Severe Exacerbation? @ -Severe exacerbation Poses a threat to life or bodily function? How? (Chest pain, [place], [place], pneumonia, PE, COPD, DKA, ARF, appy, cholecystitis, CVA, Diverticulitis, Homicidal, Suicidal, threat to staff... and all critical care pts) @ -[Yes with respiratory failure there is significant risk of morbidity and mortality - Lab Data Result diagrams: 10/01/22 09:00 10/01/22 09:00 Lab Results 09/26/22 09/26/22 09/26/22 Range/Units 03:18 03:24 03:24 WBC 13.8 H (3.8-10.6) k/uL RBC 5.35 (3.80-5.40) m/uL Hgb 16.2 H (11.4-16.0) gm/dL Hct 51.4 H (34.0-46.0) % MCV 96.2 (80.0-100.0) fL MCH 30.3 (25.0-35.0) pg MCHC 31.5 (31.0-37.0) g/dL RDW 13.8 (11.5-15.5) % Plt Count 268 (150-450) k/uL MPV 9.0 Neutrophils % Not Reportable Neutrophils % (Manual) 48 % Lymphocytes % Not Reportable Lymphocytes % (Manual) 37 % Monocytes % Not Reportable Monocytes % (Manual) 13 % Eosinophils % Not Reportable Eosinophils % (Manual) 1 % Basophils % Not Reportable Basophils % (Manual) 1 % Neutrophils # Not Reportable Neutrophils # (Manual) 6.62 (1.3-7.7) k/uL Lymphocytes # Not Reportable Lymphocytes # (Manual) 5.11 H (1.0-4.8) k/uL Monocytes # Not Reportable Monocytes # (Manual) 1.79 H (0-1.0) k/uL Eosinophils # Not Reportable Eosinophils # (Manual) 0.14 (0-0.7) k/uL Basophils # Not Reportable Basophils # (Manual) 0.14 (0-0.2) k/uL Nucleated RBCs 0 (0-0) /100 WBC RBC Morphology Normal Hypochromasia Slight PT 10.2 (9.0-12.0) sec INR 1.0 (<1.2) APTT 22.5 (22.0-30.0) sec D-Dimer 0.25 (<0.60) mg/L FEU Sample Site left radial ABG pH 7.23 L (7.35-7.45) ABG pCO2 46 H (35-45) mmHg ABG pO2 >400 H (83-108) mmHg ABG HCO3 19 L (21-25) mmol/L ABG Total CO2 21 (19-24) mmol/L ABG O2 Saturation 99.0 H (94-97) % ABG Base Excess -8.4 mmol/L Mikel Test Yes FiO2 100 % Sodium (137-145) mmol/L Potassium (3.5-5.1) mmol/L Chloride (98-107) mmol/L Carbon Dioxide (22-30) mmol/L Anion Gap mmol/L BUN (7-17) mg/dL Creatinine (0.52-1.04) mg/dL Est GFR (CKD-EPI)AfAm (>60 ml/min/1.73 sqM) Est GFR (CKD-EPI)NonAf (>60 ml/min/1.73 sqM) Glucose (74-99) mg/dL Lactic Ac Sepsis Rflx Plasma Lactic Acid Jeff (0.7-2.0) mmol/L Calcium (8.4-10.2) mg/dL Total Bilirubin (0.2-1.3) mg/dL AST (14-36) U/L ALT (4-34) U/L Alkaline Phosphatase (38-126) U/L Troponin I (0.000-0.034) ng/mL NT-Pro-B Natriuret Pep pg/mL Total Protein (6.3-8.2) g/dL Albumin (3.5-5.0) g/dL Urine Color Urine Appearance (Clear) Urine pH (5.0-8.0) Ur Specific Dietrich (1.001-1.035) Urine Protein (Negative) Urine Glucose (UA) (Negative) Urine Ketones (Negative) Urine Blood (Negative) Urine Nitrite (Negative) Urine Bilirubin (Negative) Urine Urobilinogen (<2.0) mg/dL Ur Leukocyte Esterase (Negative) Urine RBC (0-5) /hpf Urine WBC (0-5) /hpf Ur Squamous Epith Cells (0-4) /hpf Urine Bacteria (None) /hpf Hyaline Casts (0-2) /lpf Urine Mucus (None) /hpf Influenza Type A (PCR) (Not Detectd) Influenza Type B (PCR) (Not Detectd) RSV (PCR) (Not Detectd) SARS-CoV-2 (PCR) (Not Detectd) 09/26/22 09/26/22 09/26/22 Range/Units 03:24 03:24 03:24 WBC (3.8-10.6) k/uL RBC (3.80-5.40) m/uL Hgb (11.4-16.0) gm/dL Hct (34.0-46.0) % MCV (80.0-100.0) fL MCH (25.0-35.0) pg MCHC (31.0-37.0) g/dL RDW (11.5-15.5) % Plt Count (150-450) k/uL MPV Neutrophils % Neutrophils % (Manual) % Lymphocytes % Lymphocytes % (Manual) % Monocytes % Monocytes % (Manual) % Eosinophils % Eosinophils % (Manual) % Basophils % Basophils % (Manual) % Neutrophils # Neutrophils # (Manual) (1.3-7.7) k/uL Lymphocytes # Lymphocytes # (Manual) (1.0-4.8) k/uL Monocytes # Monocytes # (Manual) (0-1.0) k/uL Eosinophils # Eosinophils # (Manual) (0-0.7) k/uL Basophils # Basophils # (Manual) (0-0.2) k/uL Nucleated RBCs (0-0) /100 WBC RBC Morphology Hypochromasia PT (9.0-12.0) sec INR (<1.2) APTT (22.0-30.0) sec D-Dimer (<0.60) mg/L FEU Sample Site ABG pH (7.35-7.45) ABG pCO2 (35-45) mmHg ABG pO2 (83-108) mmHg ABG HCO3 (21-25) mmol/L ABG Total CO2 (19-24) mmol/L ABG O2 Saturation (94-97) % ABG Base Excess mmol/L Mikel Test FiO2 % Sodium 148 H (137-145) mmol/L Potassium 5.3 H (3.5-5.1) mmol/L Chloride 111 H (98-107) mmol/L Carbon Dioxide 19 L (22-30) mmol/L Anion Gap 18 mmol/L BUN 15 (7-17) mg/dL Creatinine 0.74 (0.52-1.04) mg/dL Est GFR (CKD-EPI)AfAm >90 (>60 ml/min/1.73 sqM) Est GFR (CKD-EPI)NonAf >90 (>60 ml/min/1.73 sqM) Glucose 169 H (74-99) mg/dL Lactic Ac Sepsis Rflx Plasma Lactic Acid Jeff 9.0 H* (0.7-2.0) mmol/L Calcium 10.2 (8.4-10.2) mg/dL Total Bilirubin 0.6 (0.2-1.3) mg/dL AST 37 H (14-36) U/L ALT 20 (4-34) U/L Alkaline Phosphatase 70 (38-126) U/L Troponin I <0.012 (0.000-0.034) ng/mL NT-Pro-B Natriuret Pep 122 pg/mL Total Protein 8.2 (6.3-8.2) g/dL Albumin 5.0 (3.5-5.0) g/dL Urine Color Urine Appearance (Clear) Urine pH (5.0-8.0) Ur Specific Dietrich (1.001-1.035) Urine Protein (Negative) Urine Glucose (UA) (Negative) Urine Ketones (Negative) Urine Blood (Negative) Urine Nitrite (Negative) Urine Bilirubin (Negative) Urine Urobilinogen (<2.0) mg/dL Ur Leukocyte Esterase (Negative) Urine RBC (0-5) /hpf Urine WBC (0-5) /hpf Ur Squamous Epith Cells (0-4) /hpf Urine Bacteria (None) /hpf Hyaline Casts (0-2) /lpf Urine Mucus (None) /hpf Influenza Type A (PCR) (Not Detectd) Influenza Type B (PCR) (Not Detectd) RSV (PCR) (Not Detectd) SARS-CoV-2 (PCR) (Not Detectd) 09/26/22 09/26/22 09/26/22 Range/Units 03:35 04:02 05:12 WBC (3.8-10.6) k/uL RBC (3.80-5.40) m/uL Hgb (11.4-16.0) gm/dL Hct (34.0-46.0) % MCV (80.0-100.0) fL MCH (25.0-35.0) pg MCHC (31.0-37.0) g/dL RDW (11.5-15.5) % Plt Count (150-450) k/uL MPV Neutrophils % Neutrophils % (Manual) % Lymphocytes % Lymphocytes % (Manual) % Monocytes % Monocytes % (Manual) % Eosinophils % Eosinophils % (Manual) % Basophils % Basophils % (Manual) % Neutrophils # Neutrophils # (Manual) (1.3-7.7) k/uL Lymphocytes # Lymphocytes # (Manual) (1.0-4.8) k/uL Monocytes # Monocytes # (Manual) (0-1.0) k/uL Eosinophils # Eosinophils # (Manual) (0-0.7) k/uL Basophils # Basophils # (Manual) (0-0.2) k/uL Nucleated RBCs (0-0) /100 WBC RBC Morphology Hypochromasia PT (9.0-12.0) sec INR (<1.2) APTT (22.0-30.0) sec D-Dimer (<0.60) mg/L FEU Sample Site ABG pH (7.35-7.45) ABG pCO2 (35-45) mmHg ABG pO2 (83-108) mmHg ABG HCO3 (21-25) mmol/L ABG Total CO2 (19-24) mmol/L ABG O2 Saturation (94-97) % ABG Base Excess mmol/L Mikel Test FiO2 % Sodium (137-145) mmol/L Potassium (3.5-5.1) mmol/L Chloride (98-107) mmol/L Carbon Dioxide (22-30) mmol/L Anion Gap mmol/L BUN (7-17) mg/dL Creatinine (0.52-1.04) mg/dL Est GFR (CKD-EPI)AfAm (>60 ml/min/1.73 sqM) Est GFR (CKD-EPI)NonAf (>60 ml/min/1.73 sqM) Glucose (74-99) mg/dL Lactic Ac Sepsis Rflx Y Plasma Lactic Acid Jeff (0.7-2.0) mmol/L Calcium (8.4-10.2) mg/dL Total Bilirubin (0.2-1.3) mg/dL AST (14-36) U/L ALT (4-34) U/L Alkaline Phosphatase (38-126) U/L Troponin I (0.000-0.034) ng/mL NT-Pro-B Natriuret Pep pg/mL Total Protein (6.3-8.2) g/dL Albumin (3.5-5.0) g/dL Urine Color Yellow Urine Appearance Cloudy H (Clear) Urine pH 6.0 (5.0-8.0) Ur Specific Dietrich 1.018 (1.001-1.035) Urine Protein 2+ H (Negative) Urine Glucose (UA) 2+ H (Negative) Urine Ketones Trace H (Negative) Urine Blood Small H (Negative) Urine Nitrite Negative (Negative) Urine Bilirubin Negative (Negative) Urine Urobilinogen <2.0 (<2.0) mg/dL Ur Leukocyte Esterase Small H (Negative) Urine RBC 6 H (0-5) /hpf Urine WBC 4 (0-5) /hpf Ur Squamous Epith Cells 6 H (0-4) /hpf Urine Bacteria Rare H (None) /hpf Hyaline Casts 4 H (0-2) /lpf Urine Mucus Few H (None) /hpf Influenza Type A (PCR) Not Detected (Not Detectd) Influenza Type B (PCR) Not Detected (Not Detectd) RSV (PCR) Not Detected (Not Detectd) SARS-CoV-2 (PCR) Not Detected (Not Detectd) - EKG Data EKG shows normal: sinus rhythm, axis (Normal), intervals (Normal), QRS complexes (Normal) Rate: tachycardia (Rate 109 bpm) Interpretation: nonspecific ST-T wave changes Disposition Clinical Impression: COPD exacerbation, Acute respiratory failure, Lactic acidosis Disposition: HOME SELF-CARE Condition: Fair Is patient prescribed a controlled substance at d/c from ED?: No
[2022-09-26] MEDS ORDERED: LORazepam 2 MG/ML INJ IV STA ×2 (03:26→06:51)
[2022-09-26 03:29] LABS: HCT 51.4 % (34.0-46.0); HGB 16.2 gm/dL (11.4-16.0); Hypochromasia Slight; MCH 30.3 pg (25.0-35.0); MCHC 31.5 g/dL (31.0-37.0); MCV 96.2 fL (80.0-100.0); Platelet Count 268 k/uL (150-450); RBC 5.35 m/uL (3.80-5.40); RDW 13.8 % (11.5-15.5); WBC 13.8 k/uL (3.8-10.6)
[2022-09-26 03:37] LABS: ALT 20 U/L (4-34); African American GFR (CKD) >90 (>60 ml/min/1.73 sqM); Anion Gap 18 mmol/L; Blood Urea Nitrogen 15 mg/dL (7-17); Calcium 10.2 mg/dL (8.4-10.2); Carbon Dioxide 19 mmol/L (22-30); Chloride 111 mmol/L (98-107); Glucose 169 mg/dL (74-99); Non-African American GFR(CKD) >90 (>60 ml/min/1.73 sqM); Sodium 148 mmol/L (137-145); Total Bilirubin 0.6 mg/dL (0.2-1.3); Total Protein 8.2 g/dL (6.3-8.2)
[2022-09-26 03:45] LABS: Partial Thromboplastin Time 22.5 sec (22.0-30.0); Prothrombin Time 10.2 sec (9.0-12.0)
[2022-09-26 03:46] LABS: NT-Pro-B-Type Natriuretic Pept 122 pg/mL
[2022-09-26 03:49] LABS: AST 37 U/L (14-36); Alkaline Phosphatase 70 U/L (38-126); Potassium 5.3 mmol/L (3.5-5.1)
[2022-09-26 04:02] LABS: Appearance,Urine Cloudy (Clear); Bacteria,Urine Rare /hpf; Bilirubin,Urine Negative (Negative); Blood,Urine Small (Negative); Color,Urine Yellow; Glucose,Urine (UA) 2+ (Negative); Hyaline Casts,Urine 4 /lpf (0-2); Ketones,Urine Trace (Negative); Leukocyte Esterase,Urine Small (Negative); Mucus,Urine Few /hpf; Nitrite,Urine Negative (Negative); Protein,Urine 2+ (Negative); RBC,Urine 6 /hpf (0-5); Specific Gravity,Urine 1.018 (1.001-1.035); Squamous Epithelial Cell,Urine 6 /hpf (0-4); Urobilinogen,Urine <2.0 mg/dL (<2.0); WBC,Urine 4 /hpf (0-5)
[2022-09-26 04:06] LABS: ABG Base Excess -8.4 mmol/L; ABG HCO3 19 mmol/L (21-25); ABG PCO2 46 mmHg (35-45); ABG PH 7.23 (7.35-7.45); ABG PO2 >400 mmHg (83-108); ABG TCO2 21 mmol/L (19-24); Allen Test Performed? Yes
[2022-09-26] MEDS ORDERED: MIDAZOLAM 1 MG/ML 5 ML VIAL IV STA (05:00)
[2022-09-26 05:06] LABS: Basophils # (M) 0.14 k/uL (0-0.2); Eosinophils # (M) 0.14 k/uL (0-0.7); Lymphocytes # (M) 5.11 k/uL (1.0-4.8); Monocytes # (M) 1.79 k/uL (0-1.0); Neutrophils # (M) 6.62 k/uL (1.3-7.7); Neutrophils % (M) 48 %; Nucleated Red Blood Cells 0 /100 WBC (0-0); RBC Morphology Normal; Total Cells Counted 100
--- NOTE | 2022-09-26 05:38 | XR ---
EXAM: XR Chest, 1 View CLINICAL HISTORY: ITS.REASON XR Reason: dyspnea TECHNIQUE: Frontal view of the chest. COMPARISON: No relevant prior studies available. IMPRESSION: 1. Endotracheal tube terminates 4.1 cm above the navi. 2. Gastric drainage tube courses below the diaphragm with tip in the expected location of the gastric body. Sidehole is poorly visualized but appears to be at the gastric cardia. Consider advancement repeat imaging. 3. Hyperinflated lungs with incomplete visualization of the right costophrenic sulcus. No evidence of consolidation.
[2022-09-26] MEDS ORDERED: Magnesium Replacement Protocol 1 EACH MISC MISCELLANE PRN (05:59)
[2022-09-26] MEDS ORDERED: Potassium Replacement Protocol 1 EACH MISC MISCELLANE PRN (05:59)
[2022-09-26] MEDS ORDERED: MORPHINE SULFATE 2 MG/ML SYRINGE IV PRN (05:59)
[2022-09-26] MEDS ORDERED: MORPHINE SULFATE 4 MG/ML SYRINGE IV PRN (05:59)
[2022-09-26] MEDS ORDERED: NALOXONE 0.4 MG/ML 1 ML VIAL IV PRN (05:59)
[2022-09-26] MEDS ORDERED: IPRATROPIUM-ALBUTEROL 3 ML NEB INHALATION PRN (05:59)
[2022-09-26] MEDS ORDERED: ARTIFICIAL TEARS OINTMENT 3.5 GM TUBE BOTH EYES PRN (05:59)
[2022-09-26] MEDS ORDERED: ACETAMINOPHEN SUPPOSITORY 650 MG SUPP RECTAL PRN (05:59)
[2022-09-26] MEDS ORDERED: LORazepam 2 MG/ML INJ IV PRN (05:59)
[2022-09-26] MEDS: LACTATED RINGERS 1,000 ML IV SCH ×3 (06:22→22:06)
[2022-09-26] MEDS: LORazepam 2 MG/ML INJ IV PRN ×5 (06:50→23:00)
[2022-09-26] MEDS ORDERED: IPRATROPIUM-ALBUTEROL 3 ML NEB INHALATION SCH (08:00)
[2022-09-26] MEDS: IPRATROPIUM-ALBUTEROL 3 ML NEB INHALATION SCH ×5 (08:57→23:19)
[2022-09-26 09:45] LABS: Glucose,Whole Blood 97 mg/dL (70-110)
[2022-09-26] MEDS ORDERED: CISATRACURIUM 2 MG/ML 5 ML VIAL IV ONE (09:47)
[2022-09-26] MEDS: FAMOTIDINE 20 MG/2 ML VIAL IV SCH ×2 (10:03→21:21)
--- NOTE | 2022-09-26 10:32 | PCN ---
PROCEDURE NOTE PULMONARY/CRITICAL CARE PROCEDURE NOTE: PROCEDURE: Left subclavian triple-lumen catheter. PREOPERATIVE DIAGNOSIS: Administration of fluids and pressors. POSTOPERATIVE DIAGNOSIS: Administration of fluids and pressors. OPERATORS: Dr. Cabrera and Dr. Bhakta. TRIPLE LUMEN CATHETER PLACEMENT: Indication: Hemodynamic monitoring/Intravenous access. A time-out was completed verifying correct patient, procedure, site, positioning, and implant(s) or special equipment if applicable. The patient was placed in a dependent position appropriate for triple lumen catheter placement based on the vein to be cannulated. The patient's left shoulder or left neck or left groin was prepped and draped in sterile fashion. 1% Lidocaine was used to anesthetize the surrounding skin area. A triple lumen 9F Cordis catheter was introduced into the left subclavian vein using Seldinger technique. The catheter was threaded smoothly over the guide wire and appropriate blood return was obtained. Each lumen of the catheter was evacuated of air and flushed with sterile saline. The catheter was then sutured in place to the skin and a sterile dressing applied. Perfusion to the extremity distal to the point of catheter insertion was checked and found to be adequate. We used the left subclavian site. There was good blood return from all 3 ports. The catheter was sutured in place. Sterile dressing was applied by the nurse. A chest x- ray was ordered to check placement of the catheter to rule out pneumothorax. Again, the patient tolerated the procedure well without difficulty. MMODL / IJN: [id number] /
--- NOTE | 2022-09-26 10:44 | PCN ---
PROCEDURE NOTE PROCEDURE: Right radial arterial line. PREOPERATIVE DIAGNOSES: Frequent blood draws, and blood gas monitoring. POSTOPERATIVE DIAGNOSES: Frequent blood draws, and blood gas monitoring. OPERATORS: Dr. Cabrera and Dr. Bhakta. On all of her procedures, there was universal timeout. We used a right radial artery. ARTERIAL LINE PLACEMENT: Indications: Hemodynamic monitoring. A time-out was completed verifying correct patient, procedure, site, positioning, and implant(s) or special equipment if applicable. Mikel's test was performed to ensure adequate perfusion. The patient's right wrist or right groin was prepped and draped in sterile fashion. 1% Lidocaine was used to anesthetize the area. An 18G Arrow arterial line was introduced into the radial artery. The catheter was threaded over the guide wire and the needle was removed with appropriate pulsatile blood return. Blood loss was minimal. The catheter was then sutured in place to the skin and a sterile dressing applied. Perfusion to the extremity distal to the point of catheter insertion was checked and found to be adequate. The patient tolerated the procedure well and there were no complications. The right radial artery was cannulated. Good blood return and waveform. The patient tolerated the procedure well. The catheter was sutured in place. Sterile dressing was applied by the nurse. There was no immediate complication. MMODL / IJN: [id number] /
--- NOTE | 2022-09-26 10:47 | XR ---
EXAMINATION TYPE: XR chest 1V portable DATE OF EXAM: 09/26/2022 10:41 AM COMPARISON: Chest radiographs from 09/26/2022 TECHNIQUE: XR chest 1V portable Portable AP radiograph of the chest. CLINICAL INDICATION:Female, 57 years old with history of line placement; FINDINGS: Lungs/Pleura: There is no evidence of pleural effusion, focal consolidation, or pneumothorax. Hyperi nflation. Pulmonary vascularity: Unremarkable. Heart/mediastinum: Cardiomediastinal silhouette is unremarkable. Musculoskeletal: No acute osseous pathology. Other findings: Surgical clips in the right breast. Lines/Tubes: Endotracheal and enteric tubes in stable position. Enteric tube side hole is at the GE junction. Left subclavian approach central venous catheter distal tip at the superior cavoatrial junction. IMPRESSION: 1. Interval placement of left subclavian approach central venous catheter with distal tip at the sup erior cavoatrial junction. No pneumothorax. 2. Stable endotracheal and enteric tubes. Sidehole of the enteric tube is at the GE junction. Recomm end advancement of 2 cm.
--- NOTE | 2022-09-26 11:10 | P.CNPUL ---
History of Present Illness Consult date: 09/26/22 Requesting physician: Mark E Sheet Reason for consult: COPD, hypoxemia Chief complaint: Shortness of breath History of present illness: This is a 57-year-old female patient with a known history of previous chronic tobacco dependence, chronic obstructive pulmonary disease, breast cancer status post lumpectomy, previous bariatric surgery, hearing disorder, asthma maintained on an oral and albuterol HFA in the outpatient setting. Been having issues with his possible upper respiratory infection the last several days and yesterday she was utilizing her nebulizer twice without much improvement. Her brought her to the emergency department after she started turning blue. Initial O2 saturation on room air was 55%. She was tachycardic. Tachypneic. Subsequently requiring intubation mechanical ventilatory support. Asked x-ray revealed evidence of hyperinflation. No pleural effusion, consolidation or pneumothorax. White count 13.8. Hemoglobin 16.2. D-dimer 0.25. Sodium 148. Potassium 5.3. Bicarb 19. BUN 15. Creatinine 0.74. Glucose 169. AST 37. ALT 20. Troponin negative 1. ProBNP 122. Urinalysis cloudy with 2+ protein 2+ glucose. She is seen today in consultation in the emergency department. She is currently on mechanical ventilator with settings of assist control mode at a rate of 20, tidal volume 450, FiO2 50% and a PEEP of 5. Initial blood gases revealed a PaO2 of 400, pCO2 46 and a pH of 7.23 and that was initially on 100% FiO2. She is receiving propofol at 45 mcg/kg/m. Lactated Ringer's at 130 ML's per hour. Review of Systems ROS unobtainable: due to endotracheal tube Past Medical History Past Medical History: Asthma, Cancer, COPD, Eye Disorder, Hearing Disorder / Deafness Additional Past Medical History / Comment(s): Kidney stones, hx left breast cancer, cataracts, hard of hearing. History of Any Multi-Drug Resistant Organisms: None Reported Past Surgical History: Bariatric Surgery, Breast Surgery, Cholecystectomy, Ear Surgery, Hysterectomy, Tonsillectomy Additional Past Surgical History / Comment(s): Left breast lumpectomy and lymph node removal, left ear drum reconstruction. Past Alcohol Use History: None Reported - Past Family History Mother Additional Family Medical History / Comment(s): Brain cancer, pacemaker. Sister(s) Additional Family Medical History / Comment(s): "Heart issues" and had cardiac ablation. Medications and Allergies Home Medications Medication Instructions Recorded Confirmed Type Albuterol Nebulized [Ventolin 2.5 mg INHALATION RT-Q4H PRN 05/08/22 09/26/22 History Nebulized] Umeclidinium Brm/Vilanterol Tr 1 puff INHALATION RT-DAILY 07/11/22 09/26/22 History [Anoro Ellipta 62.5-25 Mcg INH] Albuterol Inhaler [Ventolin Hfa 1 - 2 puff INHALATION RT-Q6H PRN 09/26/22 09/26/22 History Inhaler] Anastrozole 1 mg PO DAILY 09/26/22 09/26/22 History Allergies Allergy/AdvReac Type Severity Reaction Status Date / Time adhesive tape Allergy Itching Verified 09/26/22 08:31 clarithromycin [From Biaxin] Allergy Rash/Hives Verified 09/26/22 08:31 morphine Allergy Anaphylaxis Verified 09/26/22 08:31 NSAIDS (Non-Steroidal Allergy Unknown Verified 09/26/22 08:31 Anti-Inflamma Penicillins Allergy Rash/Hives Verified 09/26/22 08:31 shellfish derived [Shellfish] Allergy Anaphylaxis Verified 09/26/22 08:31 Sulfa (Sulfonamide Allergy Rash/Hives Verified 09/26/22 08:31 Antibiotics) Physical Exam Vitals: Vital Signs Temp Pulse Resp BP Pulse Ox FiO2 09/26/22 09:37 50 09/26/22 09:35 98.2 F 77 20 110/62 98 09/26/22 09:05 74 20 09/26/22 09:00 97 F L 75 17 95/42 100 50 09/26/22 08:57 69 20 09/26/22 08:05 69 20 108/77 99 09/26/22 08:00 69 0 L 99/61 100 50 09/26/22 07:58 50 09/26/22 07:55 50 09/26/22 07:35 97.2 F L 72 20 96/51 100 09/26/22 07:00 81 18 106/93 100 09/26/22 06:00 80 20 101/76 100 09/26/22 05:00 98 19 94/60 100 09/26/22 04:14 50 09/26/22 04:00 107 H 21 110/79 100 09/26/22 03:50 109 H 22 119/87 100 09/26/22 03:42 33 H 56 L 09/26/22 03:40 112 H 28 H 120/95 99 09/26/22 03:30 120 H 14 150/69 99 09/26/22 03:20 110 H 16 148/83 98 09/26/22 03:11 100 09/26/22 03:04 97.8 F 123 H 30 H 137/11 55 L Intake and Output 09/25/22 09/26/22 09/26/22 22:59 06:59 14:59 Intake Total 51.566 576.579 Output Total 125 Balance 51.566 451.579 Intake: Intake, IV Titration 51.566 576.579 Amount Lactated Ringers 1,000 ml 520 @ 130 mls/hr IV .Q7H42M [facility] Rx#:[id number] propofoL 1,000 mg In 51.566 24.124 Empty Bag 1 bag @ 15 MCG/ KG/MIN 6.491 mls/hr IV . [id number] [facility] Rx#:[id number] propofoL 1,000 mg In 32.455 Empty Bag 1 bag @ 45 MCG/ KG/MIN 19.473 mls/hr IV . Q5H9M NA[facility] Rx#:[id number] Output: Urine 125 Other: Weight 72.121 kg GENERAL EXAM: Intubated, sedated 57-year-old female, on mechanical ventilator. HEAD: Normocephalic. EYES: Normal reaction of pupils, equal size. NOSE: Clear with pink turbinates. THROAT: Oral endotracheal and gastric tube secured in place. No erythema or exudates. NECK: No masses, no JVD. CHEST: No chest wall deformity. Left subclavian triple-lumen catheter in place. LUNGS: Equal air entry with no crackles, wheeze, rhonchi or dullness. CVS: S1 and S2 normal with no audible murmur, regular rhythm. ABDOMEN: No hepatosplenomegaly, normal bowel sounds, no guarding or rigidity. SPINE: No scoliosis or deformity SKIN: No rashes CENTRAL NERVOUS SYSTEM: Sedated, tone is normal in all 4 extremities. EXTREMITIES: Right radial arterial line in place. There is no peripheral edema. No clubbing, no cyanosis. Peripheral pulses are intact. Results - Laboratory Findings CBC and BMP: 09/26/22 03:24 09/26/22 03:24 ABG ABG pH 7.23 (7.35-7.45) L 09/26/22 03:18 ABG pCO2 46 mmHg (35-45) H 09/26/22 03:18 ABG pO2 >400 mmHg (83-108) H 09/26/22 03:18 ABG O2 Saturation 99.0 % (94-97) H 09/26/22 03:18 PT/INR, D-dimer PT 10.2 sec (9.0-12.0) 09/26/22 03:24 INR 1.0 (<1.2) 09/26/22 03:24 D-Dimer 0.25 mg/L FEU (<0.60) 09/26/22 03:24 Abnormal lab findings: Abnormal Labs 09/26/22 09/26/22 09/26/22 03:18 03:24 03:24 WBC 13.8 H Hgb 16.2 H Hct 51.4 H Lymphocytes # (Manual) 5.11 H Monocytes # (Manual) 1.79 H ABG pH 7.23 L ABG pCO2 46 H ABG pO2 >400 H ABG HCO3 19 L ABG O2 Saturation 99.0 H Sodium 148 H Potassium 5.3 H Chloride 111 H Carbon Dioxide 19 L Glucose 169 H Plasma Lactic Acid Jeff AST 37 H Urine Appearance Urine Protein Urine Glucose (UA) Urine Ketones Urine Blood Ur Leukocyte Esterase Urine RBC Ur Squamous Epith Cells Urine Bacteria Hyaline Casts Urine Mucus 09/26/22 09/26/22 09/26/22 03:24 03:35 07:02 WBC Hgb Hct Lymphocytes # (Manual) Monocytes # (Manual) ABG pH ABG pCO2 ABG pO2 ABG HCO3 ABG O2 Saturation Sodium Potassium Chloride Carbon Dioxide Glucose Plasma Lactic Acid Jeff 9.0 H* 2.7 H* AST Urine Appearance Cloudy H Urine Protein 2+ H Urine Glucose (UA) 2+ H Urine Ketones Trace H Urine Blood Small H Ur Leukocyte Esterase Small H Urine RBC 6 H Ur Squamous Epith Cells 6 H Urine Bacteria Rare H Hyaline Casts 4 H Urine Mucus Few H - Diagnostic Findings Chest x-ray: image reviewed Assessment and Plan Assessment: Acute hypoxemic respiratory failure secondary to an acute exacerbation of chronic obstructive pulmonary disease History of previous chronic tobacco dependence History of breast cancer status post lumpectomy, suspect right History of hearing disorder History of nephrolithiasis History of bariatric surgery Plan: The patient was seen and evaluated Chest x-ray, ABGs, labs and medications reviewed Check a pro-calcitonin Received ceftriaxone Add DuoNeb inhalations every 4 hours Add Pulmicort and Perforomist inhalations twice a day Add IV Solu-Medrol 60 mg every 6 hours Continue propofol for sedation Triple-lumen catheter, artline placed Family updated at the bedside in the emergency department We will continue to follow and make further recommendations based on her clinical status I have personally seen and examined the patient, performed the documentation and the assessment and plan as written. Number of minutes spent on the visit: 20.
--- NOTE | 2022-09-26 11:41 | P.HPIM ---
History of Present Illness This is a pleasant 57 years old female with multiple medical problems including asthma, COPD, Hearing Disorder / Deafness, Kidney stones, hx left breast cancer, cataracts, s/p Left breast lumpectomy and lymph node removal, Presents because of shortness of breath. With acute hypoxic respiratory failure and oxygen saturation 1 down to 55% and she had to be intubated and placed on mechanical ventilation in the emergency room I saw the patient in the ICU she was on mechanical ventilation. She cannot provide information and it was obtained from staff and medical records. Also patient had history of upper respiratory infection a few days prior to hospitalization. Further information are limited now and no family member at bedside Patient was tachypneic with a breathing rate around 30, afebrile. Mildly tachycardic with heart rate 123. Currently respiratory rate is an 20 and heart rate 74 She has mild leukocytosis of 13.8, hemoglobin 16.2, d-dimer is -0.25. INR 1.0. PH is 7.2, pCO2 slightly up at 46 and PaO2 more than 400 On admission sodium 148, potassium 5.3. Creatinine normal 0.4. Thick acid is 9.0, dose 2.7. Liver enzymes not elevated. Urine analysis is mildly abnormal for Suspicious for infection or dehydrated sample Chest x-ray: Hyperinflated lungs with incomplete visualization of the right costal phrenic sulcus, no evidence of consultation. Endotracheal tube at 4.1 cm above the navi. EKG showing sinus tachycardia at the rate of [address]-T changes Review of Systems Review of systems CONSTITUTIONAL: No fever, no malaise, no fatigue. HEENT: No recent visual problems or hearing problems. Denied any sore throat. CARDIOVASCULAR: No orthopnea, PND, no palpitations, no syncope. PULMONARY: No shortness of breath, no cough, no hemoptysis. GASTROINTESTINAL: No diarrhea, no nausea, no vomiting, no abdominal pain. Normoactive bowel sounds. NEUROLOGICAL: No headaches, no weakness, no numbness. HEMATOLOGICAL: Denies any bleeding or petechiae. GENITOURINARY: Denies any burning micturition, frequency, or urgency. MUSCULOSKELETAL/RHEUMATOLOGICAL: Denies any joint pain, swelling, or any muscle pain. ENDOCRINE: Denies any polyuria or polydipsia. ROS unobtainable: due to endotracheal tube Past Medical History Past Medical History: Asthma, Cancer, COPD, Eye Disorder, Hearing Disorder / Deafness Additional Past Medical History / Comment(s): Kidney stones, hx left breast cancer, cataracts, hard of hearing. History of Any Multi-Drug Resistant Organisms: None Reported Past Surgical History: Bariatric Surgery, Breast Surgery, Cholecystectomy, Ear Surgery, Hysterectomy, Tonsillectomy Additional Past Surgical History / Comment(s): Left breast lumpectomy and lymph node removal, left ear drum reconstruction. Past Alcohol Use History: None Reported - Past Family History Mother Additional Family Medical History / Comment(s): Brain cancer, pacemaker. Sister(s) Additional Family Medical History / Comment(s): "Heart issues" and had cardiac ablation. Medications and Allergies Home Medications Medication Instructions Recorded Confirmed Type Albuterol Nebulized [Ventolin 2.5 mg INHALATION RT-Q4H PRN 05/08/22 09/26/22 History Nebulized] Umeclidinium Brm/Vilanterol Tr 1 puff INHALATION RT-DAILY 07/11/22 09/26/22 History [Anoro Ellipta 62.5-25 Mcg INH] Albuterol Inhaler [Ventolin Hfa 1 - 2 puff INHALATION RT-Q6H PRN 09/26/22 09/26/22 History Inhaler] Anastrozole 1 mg PO DAILY 09/26/22 09/26/22 History Allergies Allergy/AdvReac Type Severity Reaction Status Date / Time adhesive tape Allergy Itching Verified 09/26/22 08:31 clarithromycin [From Biaxin] Allergy Rash/Hives Verified 09/26/22 08:31 morphine Allergy Anaphylaxis Verified 09/26/22 08:31 NSAIDS (Non-Steroidal Allergy Unknown Verified 09/26/22 08:31 Anti-Inflamma Penicillins Allergy Rash/Hives Verified 09/26/22 08:31 shellfish derived [Shellfish] Allergy Anaphylaxis Verified 09/26/22 08:31 Sulfa (Sulfonamide Allergy Rash/Hives Verified 09/26/22 08:31 Antibiotics) Physical Exam Vitals: Vital Signs Temp Pulse Resp BP Pulse Ox FiO2 09/26/22 09:05 74 20 09/26/22 08:57 69 20 09/26/22 08:05 69 20 108/77 99 09/26/22 07:58 50 09/26/22 07:55 50 09/26/22 07:35 97.2 F L 72 20 96/51 100 09/26/22 07:00 81 18 106/93 100 09/26/22 06:00 80 20 101/76 100 09/26/22 05:00 98 19 94/60 100 09/26/22 04:14 50 09/26/22 04:00 107 H 21 110/79 100 09/26/22 03:50 109 H 22 119/87 100 09/26/22 03:42 33 H 56 L 09/26/22 03:40 112 H 28 H 120/95 99 09/26/22 03:30 120 H 14 150/69 99 09/26/22 03:20 110 H 16 148/83 98 09/26/22 03:11 100 09/26/22 03:04 97.8 F 123 H 30 H 137/11 55 L Intake and Output 09/25/22 09/26/22 09/26/22 22:59 06:59 14:59 Intake Total 51.566 24.124 Balance 51.566 24.124 Intake: Intake, IV Titration 51.566 24.124 Amount propofoL 1,000 mg In 51.566 24.124 Empty Bag 1 bag @ 15 MCG/ KG/MIN 6.491 mls/hr IV . [id number] [facility] Rx#:[id number] Other: Weight 72.121 kg -GENERAL: The patient is intubated and sedated HEENT: Pupils are round and equally reacting to light. EOMI. No scleral icterus. No conjunctival pallor. Normocephalic, atraumatic. No pharyngeal erythema. No thyromegaly. CARDIOVASCULAR: S1 and S2 present. No murmurs, rubs, or gallops. -PULMONARY: Chest is clear to auscultation, no wheezing , no crackles. Tachypnea with decreased air entry bilaterally ABDOMEN: Soft, nontender, nondistended, normoactive bowel sounds. No palpable organomegaly. MUSCULOSKELETAL: No joint swelling or deformity. EXTREMITIES: No cyanosis, clubbing, or pedal edema. NEUROLOGICAL: Gross neurological examination did not reveal any focal deficits. SKIN: No rashes. no petechiae. Results CBC & Chem 7: 09/26/22 03:24 09/26/22 03:24 Labs: Abnormal Lab Results - Last 24 Hours (Table) 09/26/22 09/26/22 09/26/22 Range/Units 03:18 03:24 03:24 WBC 13.8 H (3.8-10.6) k/uL Hgb 16.2 H (11.4-16.0) gm/dL Hct 51.4 H (34.0-46.0) % Lymphocytes # (Manual) 5.11 H (1.0-4.8) k/uL Monocytes # (Manual) 1.79 H (0-1.0) k/uL ABG pH 7.23 L (7.35-7.45) ABG pCO2 46 H (35-45) mmHg ABG pO2 >400 H (83-108) mmHg ABG HCO3 19 L (21-25) mmol/L ABG O2 Saturation 99.0 H (94-97) % Sodium 148 H (137-145) mmol/L Potassium 5.3 H (3.5-5.1) mmol/L Chloride 111 H (98-107) mmol/L Carbon Dioxide 19 L (22-30) mmol/L Glucose 169 H (74-99) mg/dL Plasma Lactic Acid Jeff (0.7-2.0) mmol/L AST 37 H (14-36) U/L Urine Appearance (Clear) Urine Protein (Negative) Urine Glucose (UA) (Negative) Urine Ketones (Negative) Urine Blood (Negative) Ur Leukocyte Esterase (Negative) Urine RBC (0-5) /hpf Ur Squamous Epith Cells (0-4) /hpf Urine Bacteria (None) /hpf Hyaline Casts (0-2) /lpf Urine Mucus (None) /hpf 09/26/22 09/26/22 09/26/22 Range/Units 03:24 03:35 07:02 WBC (3.8-10.6) k/uL Hgb (11.4-16.0) gm/dL Hct (34.0-46.0) % Lymphocytes # (Manual) (1.0-4.8) k/uL Monocytes # (Manual) (0-1.0) k/uL ABG pH (7.35-7.45) ABG pCO2 (35-45) mmHg ABG pO2 (83-108) mmHg ABG HCO3 (21-25) mmol/L ABG O2 Saturation (94-97) % Sodium (137-145) mmol/L Potassium (3.5-5.1) mmol/L Chloride (98-107) mmol/L Carbon Dioxide (22-30) mmol/L Glucose (74-99) mg/dL Plasma Lactic Acid Jeff 9.0 H* 2.7 H* (0.7-2.0) mmol/L AST (14-36) U/L Urine Appearance Cloudy H (Clear) Urine Protein 2+ H (Negative) Urine Glucose (UA) 2+ H (Negative) Urine Ketones Trace H (Negative) Urine Blood Small H (Negative) Ur Leukocyte Esterase Small H (Negative) Urine RBC 6 H (0-5) /hpf Ur Squamous Epith Cells 6 H (0-4) /hpf Urine Bacteria Rare H (None) /hpf Hyaline Casts 4 H (0-2) /lpf Urine Mucus Few H (None) /hpf Assessment and Plan Assessment: Acute asthma/COPD exacerbation Acute hypoxic respiratory failure secondary to above, requiring intubation and mechanical ventilation Acute metabolic acidosis Lactic acidosis Hypernatremia and hyperkalemia History of kidney stone Hearing difficulty History of left breast cancer s/p Left breast lumpectomy and lymph node removal History of cataract Plan: Start the patient on IV salmeterol Continue with mechanical ventilation with pulmonary/critical care team following the patient closely Labs and medication were reviewed.. Continue same treatment. Continue with symptomatic treatment. Resume home medication. Monitor labs and vitals. DVT and GI prophylaxis. Further recommendations as per clinical course of the patient DVT prophylaxis: Subcutaneous heparin GI Prophylaxis: Pepcid PT/OT: Pending Prognosis is guarded
[2022-09-26] MEDS: methylPREDNISolone SOD SUCCI 125 MG/2 ML VIAL IV SCH ×2 (12:28→17:27)
[2022-09-26] MEDS: FORMOTEROL FUMARATE 20 MCG/2 ML NEBU INHALATION SCH (20:30)
[2022-09-26] MEDS: BUDESONIDE 1 MG/2 ML NEBU INHALATION SCH (20:30)
[2022-09-26] MEDS: HEPARIN SODIUM,PORCINE 5,000 UNIT/ML 1 ML VIAL SQ SCH (21:21)
[2022-09-26] MEDS ORDERED: SODIUM CHLORIDE 0.9% 500 ML 500 ML IV ONE (23:05)
[2022-09-26 23:57] LABS: Glucose,Whole Blood 173 mg/dL (70-110)
[2022-09-27] MEDS: methylPREDNISolone SOD SUCCI 125 MG/2 ML VIAL IV SCH ×4 (00:30→17:25)
[2022-09-27] MEDS: LORazepam 2 MG/ML INJ IV PRN ×3 (00:31→22:53)
[2022-09-27] MEDS: IPRATROPIUM-ALBUTEROL 3 ML NEB INHALATION SCH ×6 (03:36→23:35)
[2022-09-27 04:19] LABS: Basophils % (A) 0 %; Eosinophils % (A) 1 %; HCT 37.6 % (34.0-46.0); Lymphocytes # (A) 0.6 k/uL (1.0-4.8); Lymphocytes % (A) 19 %; MCH 30.8 pg (25.0-35.0); MCHC 33.5 g/dL (31.0-37.0); MCV 91.9 fL (80.0-100.0); Mean Platelet Volume 8.1; Monocytes # (A) 0.1 k/uL (0-1.0); Monocytes % (A) 2 %; Neutrophils # (A) 2.4 k/uL (1.3-7.7); Neutrophils % (A) 78 %; Platelet Count 141 k/uL (150-450); RBC 4.09 m/uL (3.80-5.40); RDW 13.8 % (11.5-15.5); WBC 3.1 k/uL (3.8-10.6)
[2022-09-27 04:31] LABS: African American GFR (CKD) >90 (>60 ml/min/1.73 sqM); Anion Gap 8 mmol/L; Blood Urea Nitrogen 13 mg/dL (7-17); Calcium 8.9 mg/dL (8.4-10.2); Carbon Dioxide 21 mmol/L (22-30); Chloride 108 mmol/L (98-107); Glucose 187 mg/dL (74-99); Non-African American GFR(CKD) >90 (>60 ml/min/1.73 sqM); Potassium 3.6 mmol/L (3.5-5.1); Sodium 137 mmol/L (137-145)
[2022-09-27 04:34] LABS: HGB 12.6 gm/dL (11.4-16.0)
[2022-09-27] MEDS: POTASSIUM BICARBONATE/CIT AC 20 MEQ TABLET.EFF NG-TUBE SCH ×2 (05:36→06:48)
[2022-09-27] MEDS: LACTATED RINGERS 1,000 ML IV SCH ×3 (05:37→20:55)
[2022-09-27 05:58] LABS: ABG Base Excess -2.5 mmol/L; ABG HCO3 22 mmol/L (21-25); ABG PCO2 36 mmHg (35-45); ABG PO2 222 mmHg (83-108); ABG TCO2 24 mmol/L (19-24); Allen Test Performed? Yes
[2022-09-27] MEDS: BUDESONIDE 1 MG/2 ML NEBU INHALATION SCH ×2 (08:15→20:23)
[2022-09-27] MEDS: FORMOTEROL FUMARATE 20 MCG/2 ML NEBU INHALATION SCH ×2 (08:15→20:23)
[2022-09-27] MEDS: FAMOTIDINE 20 MG/2 ML VIAL IV SCH ×2 (08:45→20:54)
[2022-09-27] MEDS: HEPARIN SODIUM,PORCINE 5,000 UNIT/ML 1 ML VIAL SQ SCH ×2 (08:45→20:55)
--- NOTE | 2022-09-27 09:48 | XR ---
EXAMINATION TYPE: XR chest 1V portable DATE OF EXAM: 09/27/2022 COMPARISON: 09/26/2022 INDICATION: Mechanical ventilation TECHNIQUE: Single frontal view of the chest is obtained. FINDINGS: The heart size is normal. The pulmonary vasculature is normal. The lungs are clear. Endotracheal tube tip is above the navi. Nasogastric tube transverses the thorax, tip is within the proximal abdomen and is stable in position from prior exam. This could be advanced slightly for bett er seating. Left central venous catheter tip is in the proximal right atrium. IMPRESSION: 1. No acute pulmonary process. 2. Lines and catheters discussed above.
--- NOTE | 2022-09-27 10:23 | P.PN ---
Subjective Progress Note Date: 09/27/22 This is a 57-year-old female patient with a known history of previous chronic tobacco dependence, chronic obstructive pulmonary disease, breast cancer status post lumpectomy, previous bariatric surgery, hearing disorder, asthma maintained on an oral and albuterol HFA in the outpatient setting. Been having issues with his possible upper respiratory infection the last several days and yesterday she was utilizing her nebulizer twice without much improvement. Her brought her to the emergency department after she started turning blue. Initial O2 saturation on room air was 55%. She was tachycardic. Tachypneic. Subsequently requiring intubation mechanical ventilatory support. Asked x-ray revealed evidence of hyperinflation. No pleural effusion, consolidation or pneumothorax. White count 13.8. Hemoglobin 16.2. D-dimer 0.25. Sodium 148. Potassium 5.3. Bicarb 19. BUN 15. Creatinine 0.74. Glucose 169. AST 37. ALT 20. Troponin negative 1. ProBNP 122. Urinalysis cloudy with 2+ protein 2+ glucose. She is seen today in consultation in the emergency department. She is currently on mechanical ventilator with settings of assist control mode at a rate of 20, tidal volume 450, FiO2 50% and a PEEP of 5. Initial blood gases revealed a PaO2 of 400, pCO2 46 and a pH of 7.23 and that was initially on 100% FiO2. She is receiving propofol at 45 mcg/kg/m. Lactated Ringer's at 130 ML's per hour. The patient is seen today on 09/27/2022 in follow-up in the intensive care unit. She remains intubated on the mechanical ventilator with settings of assist control mode at a rate of 20, tidal volume 450, FiO2 40% and a PEEP of 5. Morning blood gases revealed a pO2 of 222, pCO2 36, pH 7.40-50% FiO2. Current peak pressures 23, plateau pressure 16. Currently sedated on propofol at 50 mcg/kg/m. Lactated Ringer's at 130 ML's per hour. Remains on DuoNeb inhalations, Pulmicort and performs inhalations, IV Solu-Medrol. Chest x-ray reveals no acute pulmonary process. Endotracheal tube and gastric tubes in good position. Left central line in place. Been culture pending. White count 3.1. Hemoglobin 12.6. Platelets 141. Sodium 137. Potassium 3.6. Bicarb 21. BUN 1 3. Creatinine 0.50. Glucose 187. Pro calcitonin was 0.10. Objective - Vital Signs Vital signs: Vital Signs Temp 98.0 F 09/27/22 08:00 Pulse 131 H 09/27/22 09:00 Resp 28 H 09/27/22 09:00 BP 136/71 09/27/22 09:00 Pulse Ox 100 09/27/22 08:30 FiO2 30 09/27/22 08:55 Intake & Output 09/26/22 09/27/22 09/27/22 18:59 06:59 18:59 Intake Total 5640.452 8382.082 366.682 Output Total 345 645 297 Balance 5438.353 4395.082 69.682 Weight 69.9 kg 74.6 kg Intake: IV 33 9 Arterial Line 33 9 Intake, IV Titration 4709.194 2134.082 297.682 Amount Lactated Ringers 1,000 ml 1560 1560 260 @ 130 mls/hr IV .Q7H42M [facility] Rx#:[id number] propofoL 1,000 mg In 24.124 Empty Bag 1 bag @ 15 MCG/ KG/MIN 6.491 mls/hr IV . [id number] [facility] Rx#:[id number] propofoL 1,000 mg In 185.711 261.082 37.682 Empty Bag 1 bag @ 45 MCG/ KG/MIN 19.473 mls/hr IV . Q5H9M [facility] Rx#:[id number] Tube Feeding 40 300 60 Output: Urine 345 645 297 Other: Voiding Method Indwelling Catheter Indwelling Catheter ABP, PAP, CO, CI - Last Documented Arterial Blood Pressure 176/81 - Exam GENERAL EXAM: Intubated, sedated 57-year-old female, comfortable in no apparent distress. HEAD: Normocephalic. EYES: Normal reaction of pupils, equal size. NOSE: Clear with pink turbinates. THROAT: Oral endotracheal and gastric tube secured in place No erythema or exudates. NECK: No masses, no JVD. CHEST: No chest wall deformity. Left subclavian triple-lumen catheter in place. LUNGS: Equal air entry with no crackles, wheeze, rhonchi or dullness. CVS: S1 and S2 normal with no audible murmur, regular rhythm. ABDOMEN: No hepatosplenomegaly, normal bowel sounds, no guarding or rigidity. SPINE: No scoliosis or deformity SKIN: No rashes CENTRAL NERVOUS SYSTEM: Sedated, tone is normal in all 4 extremities. EXTREMITIES: There is no peripheral edema. No clubbing, no cyanosis. Peripheral pulses are intact. - Labs CBC & Chem 7: 09/27/22 04:00 09/27/22 04:00 Labs: Abnormal Lab Results - Last 24 Hours (Table) 09/26/22 09/26/22 09/27/22 Range/Units 10:53 23:56 04:00 WBC 3.1 L (3.8-10.6) k/uL Plt Count 141 L (150-450) k/uL Lymphocytes # 0.6 L (1.0-4.8) k/uL ABG pO2 (83-108) mmHg ABG O2 Saturation (94-97) % Chloride (98-107) mmol/L Carbon Dioxide (22-30) mmol/L Creatinine (0.52-1.04) mg/dL Glucose (74-99) mg/dL POC Glucose (mg/dL) 173 H (70-110) mg/dL Procalcitonin 0.10 H (0.02-0.09) ng/mL 09/27/22 09/27/22 Range/Units 04:00 05:56 WBC (3.8-10.6) k/uL Plt Count (150-450) k/uL Lymphocytes # (1.0-4.8) k/uL ABG pO2 222 H (83-108) mmHg ABG O2 Saturation 99.0 H (94-97) % Chloride 108 H (98-107) mmol/L Carbon Dioxide 21 L (22-30) mmol/L Creatinine 0.50 L (0.52-1.04) mg/dL Glucose 187 H (74-99) mg/dL POC Glucose (mg/dL) (70-110) mg/dL Procalcitonin (0.02-0.09) ng/mL Microbiology - Last 24 Hours (Table) 09/26/22 09:35 Gram Stain - Preliminary Sputum Assessment and Plan Assessment: Acute hypoxemic respiratory failure secondary to an acute exacerbation of chronic obstructive pulmonary disease History of previous chronic tobacco dependence History of breast cancer status post lumpectomy, suspect right History of hearing disorder History of nephrolithiasis History of bariatric surgery Plan: The patient was seen and evaluated Chest x-ray, ABGs, labs and medications reviewed We'll plan for daily interruption of sedation We'll plan for spontaneous breathing trial If tolerated we'll plan on extubation today Continue DuoNeb inhalations, Pulmicort and Perforomist inhalations Continue Solu-Medrol Procalcitonin 0.10, no antibiotics at this time We will continue to follow I have personally seen and examined the patient, performed the documentation and the assessment and plan as written. Number of minutes spent on the visit: 15.
--- NOTE | 2022-09-27 11:17 | P.PN ---
Subjective This is a pleasant 57 years old female with multiple medical problems including asthma, COPD, Hearing Disorder / Deafness, Kidney stones, hx left breast cancer, cataracts, s/p Left breast lumpectomy and lymph node removal, Presents because of shortness of breath. With acute hypoxic respiratory failure and oxygen saturation 1 down to 55% and she had to be intubated and placed on mechanical ventilation in the emergency room I saw the patient in the ICU she was on mechanical ventilation. She cannot provide information and it was obtained from staff and medical records. Also patient had history of upper respiratory infection a few days prior to hospitalization. Further information are limited now and no family member at bedside Patient was tachypneic with a breathing rate around 30, afebrile. Mildly tachycardic with heart rate 123. Currently respiratory rate is an 20 and heart rate 74 She has mild leukocytosis of 13.8, hemoglobin 16.2, d-dimer is -0.25. INR 1.0. PH is 7.2, pCO2 slightly up at 46 and PaO2 more than 400 On admission sodium 148, potassium 5.3. Creatinine normal 0.4. Thick acid is 9.0, dose 2.7. Liver enzymes not elevated. Urine analysis is mildly abnormal for Suspicious for infection or dehydrated sample Chest x-ray: Hyperinflated lungs with incomplete visualization of the right costal phrenic sulcus, no evidence of consultation. Endotracheal tube at 4.1 cm above the navi. EKG showing sinus tachycardia at the rate of [address]-T changes 09/27/2022 Patient remains in the ICU sedated and intubated with pulmonary/critical care team followed closely Patient showed some improvement with less requirement for FiO2 down to 30% She undergoing spontaneous breathing trial with pulmonary team for possible extubation soon. She remains on IV Solu-Medrol 60 mg and ringer lactate with 30 mL/h Objective - Vital Signs Vital signs: Vital Signs Temp 98.0 F 09/27/22 08:00 Pulse 121 H 09/27/22 10:00 Resp 20 09/27/22 10:00 BP 110/59 09/27/22 10:00 Pulse Ox 99 09/27/22 10:00 FiO2 30 09/27/22 08:55 Intake & Output 09/26/22 09/27/22 09/27/22 18:59 06:59 18:59 Intake Total 3182.002 3605.082 369.682 Output Total 345 645 372 Balance 5622.321 7446.082 -2.318 Weight 69.9 kg 74.6 kg Intake: IV 33 12 Arterial Line 33 12 Intake, IV Titration 6172.272 7791.082 297.682 Amount Lactated Ringers 1,000 ml 1560 1560 260 @ 130 mls/hr IV .Q7H42M NAE Rx#:[id number] propofoL 1,000 mg In 24.124 Empty Bag 1 bag @ 15 MCG/ KG/MIN 6.491 mls/hr IV . [id number] NAE Rx#:[id number] propofoL 1,000 mg In 185.711 261.082 37.682 Empty Bag 1 bag @ 45 MCG/ KG/MIN 19.473 mls/hr IV . Q5H9M NAE Rx#:[id number] Tube Feeding 40 300 60 Output: Urine 345 645 372 Other: Voiding Method Indwelling Catheter Indwelling Catheter ABP, PAP, CO, CI - Last Documented Arterial Blood Pressure 112/61 - Exam -GENERAL: The patient is intubated and sedated HEENT: Pupils are round and equally reacting to light. EOMI. No scleral icterus. No conjunctival pallor. Normocephalic, atraumatic. No pharyngeal erythema. No thyromegaly. CARDIOVASCULAR: S1 and S2 present. No murmurs, rubs, or gallops. -PULMONARY: Chest is clear to auscultation, no wheezing , no crackles. Tachypnea with decreased air entry bilaterally ABDOMEN: Soft, nontender, nondistended, normoactive bowel sounds. No palpable organomegaly. MUSCULOSKELETAL: No joint swelling or deformity. EXTREMITIES: No cyanosis, clubbing, or pedal edema. NEUROLOGICAL: Gross neurological examination did not reveal any focal deficits. SKIN: No rashes. no petechiae. - Labs CBC & Chem 7: 09/27/22 04:00 09/27/22 04:00 Labs: Abnormal Lab Results - Last 24 Hours (Table) 09/26/22 09/26/22 09/27/22 Range/Units 10:53 23:56 04:00 WBC 3.1 L (3.8-10.6) k/uL Plt Count 141 L (150-450) k/uL Lymphocytes # 0.6 L (1.0-4.8) k/uL ABG pO2 (83-108) mmHg ABG O2 Saturation (94-97) % Chloride (98-107) mmol/L Carbon Dioxide (22-30) mmol/L Creatinine (0.52-1.04) mg/dL Glucose (74-99) mg/dL POC Glucose (mg/dL) 173 H (70-110) mg/dL Procalcitonin 0.10 H (0.02-0.09) ng/mL 09/27/22 09/27/22 Range/Units 04:00 05:56 WBC (3.8-10.6) k/uL Plt Count (150-450) k/uL Lymphocytes # (1.0-4.8) k/uL ABG pO2 222 H (83-108) mmHg ABG O2 Saturation 99.0 H (94-97) % Chloride 108 H (98-107) mmol/L Carbon Dioxide 21 L (22-30) mmol/L Creatinine 0.50 L (0.52-1.04) mg/dL Glucose 187 H (74-99) mg/dL POC Glucose (mg/dL) (70-110) mg/dL Procalcitonin (0.02-0.09) ng/mL Microbiology - Last 24 Hours (Table) 09/26/22 09:35 Gram Stain - Preliminary Sputum Assessment and Plan Assessment: Acute asthma/COPD exacerbation Acute hypoxic respiratory failure secondary to above, requiring intubation and mechanical ventilation Acute metabolic acidosis Lactic acidosis Hypernatremia and hyperkalemia History of kidney stone Hearing difficulty History of left breast cancer s/p Left breast lumpectomy and lymph node removal History of cataract Plan: Start the patient on IV salmeterol Continue with mechanical ventilation with pulmonary/critical care team following the patient closely Labs and medication were reviewed.. Continue same treatment. Continue with symptomatic treatment. Resume home medication. Monitor labs and vitals. DVT and GI prophylaxis. Further recommendations as per clinical course of the patient DVT prophylaxis: Subcutaneous heparin GI Prophylaxis: Pepcid PT/OT: Pending Prognosis is guarded
[2022-09-28 00:08] LABS: Glucose,Whole Blood 173 mg/dL (70-110)
[2022-09-28] MEDS: methylPREDNISolone SOD SUCCI 125 MG/2 ML VIAL IV SCH ×4 (00:08→20:13)
[2022-09-28] MEDS: LORazepam 2 MG/ML INJ IV PRN ×3 (01:27→05:05)
[2022-09-28] MEDS: LACTATED RINGERS 1,000 ML IV SCH (03:32)
[2022-09-28 04:15] LABS: Basophils % (A) 0 %; Eosinophils # (A) 0.1 k/uL (0-0.7); Eosinophils % (A) 1 %; HCT 36.5 % (34.0-46.0); HGB 12.3 gm/dL (11.4-16.0); Lymphocytes # (A) 0.7 k/uL (1.0-4.8); Lymphocytes % (A) 7 %; MCH 31.1 pg (25.0-35.0); MCHC 33.7 g/dL (31.0-37.0); MCV 92.2 fL (80.0-100.0); Mean Platelet Volume 8.5; Monocytes # (A) 0.4 k/uL (0-1.0); Monocytes % (A) 4 %; Neutrophils # (A) 8.2 k/uL (1.3-7.7); Neutrophils % (A) 87 %; Platelet Count 150 k/uL (150-450); RBC 3.95 m/uL (3.80-5.40); RDW 14.1 % (11.5-15.5); WBC 9.4 k/uL (3.8-10.6)
[2022-09-28] MEDS: IPRATROPIUM-ALBUTEROL 3 ML NEB INHALATION SCH ×5 (04:23→21:29)
[2022-09-28 04:24] LABS: African American GFR (CKD) >90 (>60 ml/min/1.73 sqM); Anion Gap 4 mmol/L; Blood Urea Nitrogen 20 mg/dL (7-17); Calcium 8.8 mg/dL (8.4-10.2); Carbon Dioxide 26 mmol/L (22-30); Chloride 107 mmol/L (98-107); Glucose 167 mg/dL (74-99); Non-African American GFR(CKD) >90 (>60 ml/min/1.73 sqM); Potassium 4.1 mmol/L (3.5-5.1); Sodium 137 mmol/L (137-145)
[2022-09-28 05:52] LABS: Glucose,Whole Blood 169 mg/dL (70-110)
[2022-09-28 05:53] LABS: ABG Base Excess 2.9 mmol/L; ABG HCO3 27 mmol/L (21-25); ABG Oxygen Saturation 97.9 % (94-97); ABG PCO2 38 mmHg (35-45); ABG PH 7.46 (7.35-7.45); ABG PO2 110 mmHg (83-108); ABG TCO2 28 mmol/L (19-24); Allen Test Performed? Yes
[2022-09-28] MEDS: FORMOTEROL FUMARATE 20 MCG/2 ML NEBU INHALATION SCH ×2 (07:39→21:27)
[2022-09-28] MEDS: BUDESONIDE 1 MG/2 ML NEBU INHALATION SCH ×2 (07:39→21:27)
[2022-09-28] MEDS: FAMOTIDINE 20 MG/2 ML VIAL IV SCH ×2 (07:49→21:16)
[2022-09-28] MEDS: HEPARIN SODIUM,PORCINE 5,000 UNIT/ML 1 ML VIAL SQ SCH ×2 (07:50→21:16)
--- NOTE | 2022-09-28 08:12 | XR ---
EXAMINATION TYPE: XR chest 1V portable DATE OF EXAM: 09/28/2022 5:34 AM COMPARISON: Chest radiographs from 09/27/2022 TECHNIQUE: XR chest 1V portable Frontal view of the chest. CLINICAL INDICATION:Female, 57 years old with history of mechanical ventilation; FINDINGS: Lungs/Pleura: There is no evidence of pleural effusion, focal consolidation, or pneumothorax. Pulmonary vascularity: Unremarkable. Heart/mediastinum: Cardiomediastinal silhouette is unremarkable. Musculoskeletal: No acute osseous pathology. Breast surgical clips. Other findings: None Lines/Tubes: Endotracheal tube with distal tip 4.7 cm above the navi. Nasogastric tube with side-port projecting over the distal esophagus. Left central venous catheter with distal tip at the cavoatrial junction. IMPRESSION: 1. Nasogastric tube with side-port in the distal esophagus and advancement of 10 cm proximal placeme nt is recommended 2. Endotracheal tube in appropriate position.
[2022-09-28] MEDS ORDERED: FUROSEMIDE 10 MG/ML 4 ML VIAL IV STA (08:22)
--- NOTE | 2022-09-28 10:17 | P.PN ---
Subjective Progress Note Date: 09/28/22 This is a 57-year-old female patient with a known history of previous chronic tobacco dependence, chronic obstructive pulmonary disease, breast cancer status post lumpectomy, previous bariatric surgery, hearing disorder, asthma maintained on an oral and albuterol HFA in the outpatient setting. Been having issues with his possible upper respiratory infection the last several days and yesterday she was utilizing her nebulizer twice without much improvement. Her brought her to the emergency department after she started turning blue. Initial O2 saturation on room air was 55%. She was tachycardic. Tachypneic. Subsequently requiring intubation mechanical ventilatory support. Asked x-ray revealed evidence of hyperinflation. No pleural effusion, consolidation or pneumothorax. White count 13.8. Hemoglobin 16.2. D-dimer 0.25. Sodium 148. Potassium 5.3. Bicarb 19. BUN 15. Creatinine 0.74. Glucose 169. AST 37. ALT 20. Troponin negative 1. ProBNP 122. Urinalysis cloudy with 2+ protein 2+ glucose. She is seen today in consultation in the emergency department. She is currently on mechanical ventilator with settings of assist control mode at a rate of 20, tidal volume 450, FiO2 50% and a PEEP of 5. Initial blood gases revealed a PaO2 of 400, pCO2 46 and a pH of 7.23 and that was initially on 100% FiO2. She is receiving propofol at 45 mcg/kg/m. Lactated Ringer's at 130 ML's per hour. The patient is seen today on 09/27/2022 in follow-up in the intensive care unit. She remains intubated on the mechanical ventilator with settings of assist control mode at a rate of 20, tidal volume 450, FiO2 40% and a PEEP of 5. Morning blood gases revealed a pO2 of 222, pCO2 36, pH 7.40-50% FiO2. Current peak pressures 23, plateau pressure 16. Currently sedated on propofol at 50 mcg/kg/m. Lactated Ringer's at 130 ML's per hour. Remains on DuoNeb inhalations, Pulmicort and performs inhalations, IV Solu-Medrol. Chest x-ray reveals no acute pulmonary process. Endotracheal tube and gastric tubes in good position. Left central line in place. Been culture pending. White count 3.1. Hemoglobin 12.6. Platelets 141. Sodium 137. Potassium 3.6. Bicarb 21. BUN 1 3. Creatinine 0.50. Glucose 187. Pro calcitonin was 0.10. Patient seen today 09/28/2022 in follow-up in intensive care unit. She remains intubated on mechanical ventilator currently an assist-control mode at a rate of 20, tidal balm 450, FiO2 30% and a PEEP of 5. Peak airway pressure 24. Plateau pressure 16. When blood gases reveal a P O2 of 110, pCO2 38, pH of 7.46. She is currently sedated on propofol at 40 mcg/kg/m. She is receiving lactated Ringer's at 130 ML's per hour. She is on vital HP at 41 arnulfo liters per hour which is her goal. She is currently in sinus rhythm. She remains on DuoNeb inhalations, Pulmicort and performs inhalations, IV Solu-Medrol. Chest x-ray reveals clear lung claros. Endotracheal and nasogastric tube secured in place. Blood and sputum cultures pending. White count 9.4. Hemoglobin 12.3. Sodium 137. Potassium 4.1. Bicarb 26. BUN 20. Creatinine 0.56. Glucose 167. She is currently in a positive 4 liter balance since admission. Objective - Vital Signs Vital signs: Vital Signs Temp 98.1 F 09/28/22 08:00 Pulse 101 H 09/28/22 10:00 Resp 22 09/28/22 10:00 BP 139/81 09/28/22 10:00 Pulse Ox 99 09/28/22 07:00 FiO2 30 09/28/22 09:46 Intake & Output 09/27/22 09/28/22 09/28/22 18:59 06:59 18:59 Intake Total 7188.104 9427.708 294.680 Output Total 1417 1090 1935 Balance 209.000 927.708 -1640.320 Weight 75 kg Intake: IV 36 1599 179 Arterial Line 36 39 9 Lactated Ringers 1,000 ml 1560 170 @ 20 mls/hr IV .Q24H NAE Rx#:[id number] Intake, IV Titration 1530.000 418.708 33.680 Amount Lactated Ringers 1,000 ml 1430 130 @ 20 mls/hr IV .Q24H NAE Rx#:[id number] propofoL 1,000 mg In 100.000 288.708 33.680 Empty Bag 1 bag @ 45 MCG/ KG/MIN 19.473 mls/hr IV . Q5H9M REPLACED BY [facility] Rx#:[id number] Tube Feeding 60 82 Output: Urine 1417 1090 1935 Other: Voiding Method Indwelling Catheter Indwelling Catheter Indwelling Catheter ABP, PAP, CO, CI - Last Documented Arterial Blood Pressure 145/67 - Exam GENERAL EXAM: Intubated, sedated 57-year-old female, on mechanical ventilator at 30% FiO2 and a PEEP of 5, comfortable in no apparent distress. HEAD: Normocephalic. EYES: Normal reaction of pupils, equal size. NOSE: Clear with pink turbinates. THROAT: Oral endotracheal and gastric tube secured in place No erythema or exudates. NECK: No masses, no JVD. CHEST: No chest wall deformity. Left subclavian triple-lumen catheter in place. LUNGS: Equal air entry with no crackles, wheeze, rhonchi or dullness. CVS: S1 and S2 normal with no audible murmur, regular rhythm. ABDOMEN: No hepatosplenomegaly, normal bowel sounds, no guarding or rigidity. SPINE: No scoliosis or deformity SKIN: No rashes CENTRAL NERVOUS SYSTEM: Sedated, tone is normal in all 4 extremities. EXTREMITIES: Right radial arterial line in place. There is no peripheral edema. No clubbing, no cyanosis. Peripheral pulses are intact. - Labs CBC & Chem 7: 09/28/22 04:06 09/28/22 04:06 Labs: Abnormal Lab Results - Last 24 Hours (Table) 09/28/22 09/28/22 09/28/22 Range/Units 00:06 04:06 04:06 Neutrophils # 8.2 H (1.3-7.7) k/uL Lymphocytes # 0.7 L (1.0-4.8) k/uL ABG pH (7.35-7.45) ABG pO2 (83-108) mmHg ABG HCO3 (21-25) mmol/L ABG Total CO2 (19-24) mmol/L ABG O2 Saturation (94-97) % BUN 20 H (7-17) mg/dL Glucose 167 H (74-99) mg/dL POC Glucose (mg/dL) 173 H (70-110) mg/dL 09/28/22 09/28/22 Range/Units 05:49 05:51 Neutrophils # (1.3-7.7) k/uL Lymphocytes # (1.0-4.8) k/uL ABG pH 7.46 H (7.35-7.45) ABG pO2 110 H (83-108) mmHg ABG HCO3 27 H (21-25) mmol/L ABG Total CO2 28 H (19-24) mmol/L ABG O2 Saturation 97.9 H (94-97) % BUN (7-17) mg/dL Glucose (74-99) mg/dL POC Glucose (mg/dL) 169 H (70-110) mg/dL Microbiology - Last 24 Hours (Table) 09/26/22 03:40 Blood Culture - Preliminary Blood 09/26/22 03:30 Blood Culture - Preliminary Blood 09/26/22 09:35 Gram Stain - Preliminary Sputum Assessment and Plan Assessment: Acute hypoxemic respiratory failure secondary to an acute exacerbation of chronic obstructive pulmonary diseaseasthma History of previous chronic tobacco dependence History of breast cancer status post lumpectomy, suspect right History of hearing disorder History of nephrolithiasis History of bariatric surgery Plan: The patient was seen and evaluated Chest x-ray, ABGs, labs and medications reviewed Decrease fluids to KVO Give Lasix 40 mg IVP 1 We'll plan for daily interruption of sedation We'll plan for spontaneous breathing trial If tolerated we'll plan on extubation today Continue bronchodilators and steroids We will continue to follow I have personally seen and examined the patient, performed the documentation and the assessment and plan as written. Number of minutes spent on the visit: 15.
--- NOTE | 2022-09-28 17:48 | P.PN ---
Subjective This is a pleasant 57 years old female with multiple medical problems including asthma, COPD, Hearing Disorder / Deafness, Kidney stones, hx left breast cancer, cataracts, s/p Left breast lumpectomy and lymph node removal, Presents because of shortness of breath. With acute hypoxic respiratory failure and oxygen saturation 1 down to 55% and she had to be intubated and placed on mechanical ventilation in the emergency room I saw the patient in the ICU she was on mechanical ventilation. She cannot provide information and it was obtained from staff and medical records. Also patient had history of upper respiratory infection a few days prior to hospitalization. Further information are limited now and no family member at bedside Patient was tachypneic with a breathing rate around 30, afebrile. Mildly tachycardic with heart rate 123. Currently respiratory rate is an 20 and heart rate 74 She has mild leukocytosis of 13.8, hemoglobin 16.2, d-dimer is -0.25. INR 1.0. PH is 7.2, pCO2 slightly up at 46 and PaO2 more than 400 On admission sodium 148, potassium 5.3. Creatinine normal 0.4. Thick acid is 9.0, dose 2.7. Liver enzymes not elevated. Urine analysis is mildly abnormal for Suspicious for infection or dehydrated sample Chest x-ray: Hyperinflated lungs with incomplete visualization of the right costal phrenic sulcus, no evidence of consultation. Endotracheal tube at 4.1 cm above the navi. EKG showing sinus tachycardia at the rate of [address]-T changes 09/27/2022 Patient remains in the ICU sedated and intubated with pulmonary/critical care team followed closely Patient showed some improvement with less requirement for FiO2 down to 30% She undergoing spontaneous breathing trial with pulmonary team for possible extubation soon. She remains on IV Solu-Medrol 60 mg and ringer lactate with 30 mL/h 09/28/2022 Patient remains in the ICU in critical condition, she is sedated and intubated with pulmonary/critical care team followed closely She got 1 dose of Lasix today She undergoes a sedation holiday and breathing trial and to be extubated 1 parameters allow. She is on IV Solu-Medrol 60 mg and ringer lactate with 130 mL/h Objective - Vital Signs Vital signs: Vital Signs Temp 98.1 F 09/28/22 08:00 Pulse 93 09/28/22 14:00 Resp 16 09/28/22 14:00 BP 136/79 09/28/22 14:00 Pulse Ox 98 09/28/22 14:00 FiO2 30 09/28/22 09:46 Intake & Output 09/27/22 09/28/22 09/28/22 18:59 06:59 18:59 Intake Total 3500.646 4879.708 386.680 Output Total 1417 1090 2720 Balance 209.000 927.708 -2333.320 Weight 75 kg Intake: IV 36 1599 271 Arterial Line 36 39 21 Lactated Ringers 1,000 ml 1560 250 @ 20 mls/hr IV .Q24H NAE Rx#:[id number] Intake, IV Titration 1530.000 418.708 33.680 Amount Lactated Ringers 1,000 ml 1430 130 @ 20 mls/hr IV .Q24H NAE Rx#:[id number] propofoL 1,000 mg In 100.000 288.708 33.680 Empty Bag 1 bag @ 45 MCG/ KG/MIN 19.473 mls/hr IV . Q5H9M NAE Rx#:[id number] Tube Feeding 60 82 Output: Urine 1417 1090 2720 Other: Voiding Method Indwelling Catheter Indwelling Catheter Indwelling Catheter ABP, PAP, CO, CI - Last Documented Arterial Blood Pressure 151/71 - Exam -GENERAL: The patient is intubated and sedated HEENT: Pupils are round and equally reacting to light. EOMI. No scleral icterus. No conjunctival pallor. Normocephalic, atraumatic. No pharyngeal erythema. No thyromegaly. CARDIOVASCULAR: S1 and S2 present. No murmurs, rubs, or gallops. -PULMONARY: Chest is clear to auscultation, no wheezing , no crackles. T achypnea with decreased air entry bilaterally ABDOMEN: Soft, nontender, nondistended, normoactive bowel sounds. No palpable organomegaly. MUSCULOSKELETAL: No joint swelling or deformity. EXTREMITIES: No cyanosis, clubbing, or pedal edema. NEUROLOGICAL: Gross neurological examination did not reveal any focal deficits. SKIN: No rashes. no petechiae. - Labs CBC & Chem 7: 09/28/22 04:06 09/28/22 04:06 Labs: Abnormal Lab Results - Last 24 Hours (Table) 09/28/22 09/28/2223 Range/Units 00:06 04:06 04:06 Neutrophils # 8.2 H (1.3-7.7) k/uL Lymphocytes # 0.7 L (1.0-4.8) k/uL ABG pH (7.35-7.45) ABG pO2 (83-108) mmHg ABG HCO3 (21-25) mmol/L ABG Total CO2 (19-24) mmol/L ABG O2 Saturation (94-97) % BUN 20 H (7-17) mg/dL Glucose 167 H (74-99) mg/dL POC Glucose (mg/dL) 173 H (70-110) mg/dL 09/28/22 09/28/22 Range/Units 05:49 05:51 Neutrophils # (1.3-7.7) k/uL Lymphocytes # (1.0-4.8) k/uL ABG pH 7.46 H (7.35-7.45) ABG pO2 110 H (83-108) mmHg ABG HCO3 27 H (21-25) mmol/L ABG Total CO2 28 H (19-24) mmol/L ABG O2 Saturation 97.9 H (94-97) % BUN (7-17) mg/dL Glucose (74-99) mg/dL POC Glucose (mg/dL) 169 H (70-110) mg/dL Microbiology - Last 24 Hours (Table) 09/26/22 03:40 Blood Culture - Preliminary Blood 09/26/22 03:30 Blood Culture - Preliminary Blood Assessment and Plan Assessment: Acute asthma/COPD exacerbation Acute hypoxic respiratory failure secondary to above, requiring intubation and mechanical ventilation Acute metabolic acidosis Lactic acidosis Hypernatremia and hyperkalemia History of kidney stone Hearing difficulty History of left breast cancer s/p Left breast lumpectomy and lymph node removal History of cataract Plan: Start the patient on IV salmeterol Continue with mechanical ventilation with pulmonary/critical care team following the patient closely Labs and medication were reviewed.. Continue same treatment. Continue with symptomatic treatment. Resume home medication. Monitor labs and vitals. DVT and GI prophylaxis. Further recommendations as per clinical course of the patient DVT prophylaxis: Subcutaneous heparin GI Prophylaxis: Pepcid PT/OT: Pending Prognosis is guarded
[2022-09-29] MEDS: methylPREDNISolone SOD SUCCI 125 MG/2 ML VIAL IV SCH ×2 (00:08→06:09)
[2022-09-29 04:33] LABS: Basophils % (A) 0 %; Eosinophils # (A) 0.1 k/uL (0-0.7); Eosinophils % (A) 1 %; HGB 13.3 gm/dL (11.4-16.0); Lymphocytes # (A) 0.7 k/uL (1.0-4.8); Lymphocytes % (A) 7 %; MCH 30.3 pg (25.0-35.0); MCHC 33.2 g/dL (31.0-37.0); MCV 91.4 fL (80.0-100.0); Mean Platelet Volume 8.6; Monocytes # (A) 0.3 k/uL (0-1.0); Monocytes % (A) 3 %; Neutrophils # (A) 9.5 k/uL (1.3-7.7); Neutrophils % (A) 90 %; Platelet Count 148 k/uL (150-450); RBC 4.38 m/uL (3.80-5.40); RDW 13.9 % (11.5-15.5); WBC 10.5 k/uL (3.8-10.6)
[2022-09-29 04:44] LABS: African American GFR (CKD) >90 (>60 ml/min/1.73 sqM); Anion Gap 6 mmol/L; Blood Urea Nitrogen 26 mg/dL (7-17); Calcium 8.9 mg/dL (8.4-10.2); Carbon Dioxide 27 mmol/L (22-30); Chloride 106 mmol/L (98-107); Glucose 141 mg/dL (74-99); Magnesium 2.5 mg/dL (1.6-2.3); Non-African American GFR(CKD) >90 (>60 ml/min/1.73 sqM); Sodium 139 mmol/L (137-145)
[2022-09-29] MEDS: LACTATED RINGERS 1,000 ML IV SCH (06:09)
[2022-09-29] MEDS: BUDESONIDE 1 MG/2 ML NEBU INHALATION SCH (07:40)
[2022-09-29] MEDS: FORMOTEROL FUMARATE 20 MCG/2 ML NEBU INHALATION SCH (07:40)
[2022-09-29] MEDS: IPRATROPIUM-ALBUTEROL 3 ML NEB INHALATION SCH ×4 (07:41→20:36)
--- NOTE | 2022-09-29 07:57 | XR ---
EXAMINATION TYPE: XR chest 1V portable DATE OF EXAM: 09/29/2022 HISTORY: Shortness of breath. COMPARISON: 09/28/2022 TECHNIQUE: Single view of the chest is submitted. FINDINGS: Demonstrated are scattered senescent parenchymal change. Endotracheal tube and NG tube have been rem michael. There is no evidence for focal infiltrate. The heart is stable. Hilar and mediastinal structures are within normal limits. Degenerative changes are seen of the dorsal spine. IMPRESSION: 1. Chronic changes without evidence for acute pulmonary disease.
[2022-09-29] MEDS: HEPARIN SODIUM,PORCINE 5,000 UNIT/ML 1 ML VIAL SQ SCH ×2 (08:45→20:23)
[2022-09-29] MEDS: FAMOTIDINE 20 MG/2 ML VIAL IV SCH ×2 (08:45→20:22)
--- NOTE | 2022-09-29 09:50 | P.PN ---
Subjective Progress Note Date: 09/29/22 This is a 57-year-old female patient with a known history of previous chronic tobacco dependence, chronic obstructive pulmonary disease, breast cancer status post lumpectomy, previous bariatric surgery, hearing disorder, asthma maintained on an oral and albuterol HFA in the outpatient setting. Been having issues with his possible upper respiratory infection the last several days and yesterday she was utilizing her nebulizer twice without much improvement. Her brought her to the emergency department after she started turning blue. Initial O2 saturation on room air was 55%. She was tachycardic. Tachypneic. Subsequently requiring intubation mechanical ventilatory support. Asked x-ray revealed evidence of hyperinflation. No pleural effusion, consolidation or pneumothorax. White count 13.8. Hemoglobin 16.2. D-dimer 0.25. Sodium 148. Potassium 5.3. Bicarb 19. BUN 15. Creatinine 0.74. Glucose 169. AST 37. ALT 20. Troponin negative 1. ProBNP 122. Urinalysis cloudy with 2+ protein 2+ glucose. She is seen today in consultation in the emergency department. She is currently on mechanical ventilator with settings of assist control mode at a rate of 20, tidal volume 450, FiO2 50% and a PEEP of 5. Initial blood gases revealed a PaO2 of 400, pCO2 46 and a pH of 7.23 and that was initially on 100% FiO2. She is receiving propofol at 45 mcg/kg/m. Lactated Ringer's at 130 ML's per hour. The patient is seen today on 09/27/2022 in follow-up in the intensive care unit. She remains intubated on the mechanical ventilator with settings of assist control mode at a rate of 20, tidal volume 450, FiO2 40% and a PEEP of 5. Morning blood gases revealed a pO2 of 222, pCO2 36, pH 7.40-50% FiO2. Current peak pressures 23, plateau pressure 16. Currently sedated on propofol at 50 mcg/kg/m. Lactated Ringer's at 130 ML's per hour. Remains on DuoNeb inhalations, Pulmicort and performs inhalations, IV Solu-Medrol. Chest x-ray reveals no acute pulmonary process. Endotracheal tube and gastric tubes in good position. Left central line in place. Been culture pending. White count 3.1. Hemoglobin 12.6. Platelets 141. Sodium 137. Potassium 3.6. Bicarb 21. BUN 1 3. Creatinine 0.50. Glucose 187. Pro calcitonin was 0.10. Patient seen today 09/28/2022 in follow-up in intensive care unit. She remains intubated on mechanical ventilator currently an assist-control mode at a rate of 20, tidal balm 450, FiO2 30% and a PEEP of 5. Peak airway pressure 24. Plateau pressure 16. When blood gases reveal a P O2 of 110, pCO2 38, pH of 7.46. She is currently sedated on propofol at 40 mcg/kg/m. She is receiving lactated Ringer's at 130 ML's per hour. She is on vital HP at 41 arnulfo liters per hour which is her goal. She is currently in sinus rhythm. She remains on DuoNeb inhalations, Pulmicort and performs inhalations, IV Solu-Medrol. Chest x-ray reveals clear lung claros. Endotracheal and nasogastric tube secured in place. Blood and sputum cultures pending. White count 9.4. Hemoglobin 12.3. Sodium 137. Potassium 4.1. Bicarb 26. BUN 20. Creatinine 0.56. Glucose 167. She is currently in a positive 4 liter balance since admission. The patient is seen today 09/29/2022 in follow-up in the intensive care unit. She was successfully extubated yesterday. She is currently on 2 L nasal cannula. She has lactated Ringer's at [facility]. Chest x-ray reveals chronic changes but no acute pulmonary process. Blood cultures reveal no growth. Sputum c ulture reveals no growth. White count 10.5. Hemoglobin 13.3. Platelets 148. Sodium 139. Potassium 4.0. Bicarb 27. BUN 26. Creatinine 0.60. Glucose 141. She is continued on DuoNeb inhalations, Pulmicort and Perforomist inhalations, IV Solu-Medrol. Heparin for DVT prophylaxis. Objective - Vital Signs Vital signs: Vital Signs Temp 98.4 F 09/29/22 08:00 Pulse 82 09/29/22 09:00 Resp 15 09/29/22 09:00 BP 139/77 09/29/22 09:00 Pulse Ox 95 09/29/22 08:00 FiO2 30 09/28/22 09:46 Intake & Output 09/28/22 09/29/22 09/29/22 18:59 06:59 18:59 Intake Total 492.680 220 60 Output Total 3185 830 225 Balance -2692.320 -610 -165 Weight 72.6 kg Intake: IV 377 220 60 Arterial Line 27 Lactated Ringers 1,000 ml 350 220 60 @ 20 mls/hr IV .Q24H NAE Rx#:[id number] Intake, IV Titration 33.680 Amount propofoL 1,000 mg In 33.680 Empty Bag 1 bag @ 45 MCG/ KG/MIN 19.473 mls/hr IV . Q5H9M NAE Rx#:[id number] Tube Feeding 82 Output: Urine 3185 830 225 Other: Voiding Method Indwelling Catheter Indwelling Catheter Indwelling Catheter ABP, PAP, CO, CI - Last Documented Arterial Blood Pressure 165/70 - Exam GENERAL EXAM: Awake, alert and oriented 57-year-old female, on 2 liters nasal cannula, comfortable in no apparent distress. HEAD: Normocephalic. EYES: Normal reaction of pupils, equal size. NOSE: Clear with pink turbinates. THROAT: No erythema or exudates. NECK: No masses, no JVD. CHEST: No chest wall deformity. Left subclavian triple-lumen catheter in place. LUNGS: Equal air entry with no crackles, wheeze, rhonchi or dullness. CVS: S1 and S2 normal with no audible murmur, regular rhythm. ABDOMEN: No hepatosplenomegaly, normal bowel sounds, no guarding or rigidity. SPINE: No scoliosis or deformity SKIN: No rashes CENTRAL NERVOUS SYSTEM: No focal deficit, tone is normal in all 4 extremities. EXTREMITIES: Right radial arterial line in place. There is no peripheral edema. No clubbing, no cyanosis. Peripheral pulses are intact. - Labs CBC & Chem 7: 09/29/22 04:01 09/29/22 04:01 Labs: Abnormal Lab Results - Last 24 Hours (Table) 09/28/22 09/29/22 09/29/22 Range/Units 18:10 04:01 04:01 Plt Count 148 L (150-450) k/uL Neutrophils # 9.5 H (1.3-7.7) k/uL Lymphocytes # 0.7 L (1.0-4.8) k/uL Carbon Dioxide 32 H (22-30) mmol/L BUN 26 H (7-17) mg/dL Glucose 141 H (74-99) mg/dL Magnesium 2.5 H (1.6-2.3) mg/dL Microbiology - Last 24 Hours (Table) 09/26/22 03:40 Blood Culture - Preliminary Blood 09/26/22 03:30 Blood Culture - Preliminary Blood Assessment and Plan Assessment: Acute hypoxemic respiratory failure secondary to an acute exacerbation of chronic obstructive pulmonary diseaseasthma History of previous chronic tobacco dependence History of breast cancer status post lumpectomy, suspect right History of hearing disorder History of nephrolithiasis History of bariatric surgery Plan: The patient was seen and evaluated Chest x-ray, labs and medications reviewed Currently stable and on 2 L nasal cannula Discontinue Pulmicort and Perforomist inhalations Initiate Symbicort Decrease steroids to 40 mg every 8 hours Transfer to a regular medical floor Continue bronchodilators and steroids We will continue to follow I have personally seen and examined the patient, performed the documentation and the assessment and plan as written. Number of minutes spent on the visit: 10.
--- NOTE | 2022-09-29 11:02 | P.PN ---
Subjective This is a pleasant 57 years old female with multiple medical problems including asthma, COPD, Hearing Disorder / Deafness, Kidney stones, hx left breast cancer, cataracts, s/p Left breast lumpectomy and lymph node removal, Presents because of shortness of breath. With acute hypoxic respiratory failure and oxygen saturation 1 down to 55% and she had to be intubated and placed on mechanical ventilation in the emergency room I saw the patient in the ICU she was on mechanical ventilation. She cannot provide information and it was obtained from staff and medical records. Also patient had history of upper respiratory infection a few days prior to hospitalization. Further information are limited now and no family member at bedside Patient was tachypneic with a breathing rate around 30, afebrile. Mildly tachycardic with heart rate 123. Currently respiratory rate is an 20 and heart rate 74 She has mild leukocytosis of 13.8, hemoglobin 16.2, d-dimer is -0.25. INR 1.0. PH is 7.2, pCO2 slightly up at 46 and PaO2 more than 400 On admission sodium 148, potassium 5.3. Creatinine normal 0.4. Thick acid is 9.0, dose 2.7. Liver enzymes not elevated. Urine analysis is mildly abnormal for Suspicious for infection or dehydrated sample Chest x-ray: Hyperinflated lungs with incomplete visualization of the right costal phrenic sulcus, no evidence of consultation. Endotracheal tube at 4.1 cm above the navi. EKG showing sinus tachycardia at the rate of [address]-T changes 09/27/2022 Patient remains in the ICU sedated and intubated with pulmonary/critical care team followed closely Patient showed some improvement with less requirement for FiO2 down to 30% She undergoing spontaneous breathing trial with pulmonary team for possible extubation soon. She remains on IV Solu-Medrol 60 mg and ringer lactate with 30 mL/h 09/28/2022 Patient remains in the ICU in critical condition, she is sedated and intubated with pulmonary/critical care team followed closely She got 1 dose of Lasix today She undergoes a sedation holiday and breathing trial and to be extubated 1 parameters allow. She is on IV Solu-Medrol 60 mg and ringer lactate with 130 mL/h 09/29/2022 Patient status post extubation yesterday She is saturating well on to monitor oxygen via nasal cannula She denies chest pain or dyspnea. Some internal is currently running at 40 mg every 8 hours, also she was placed on Symbicort. No IV fluids. Patient planned to be transferred out of the ICU. Objective - Vital Signs Vital signs: Vital Signs Temp 98.4 F 09/29/22 08:00 Pulse 82 09/29/22 09:00 Resp 15 09/29/22 09:00 BP 139/77 09/29/22 09:00 Pulse Ox 95 09/29/22 08:00 FiO2 30 09/28/22 09:46 Intake & Output 09/28/22 09/29/22 09/29/22 18:59 06:59 18:59 Intake Total 492.680 220 60 Output Total 3185 830 225 Balance -2692.320 -610 -165 Weight 72.6 kg Intake: IV 377 220 60 Arterial Line 27 Lactated Ringers 1,000 ml 350 220 60 @ 20 mls/hr IV .Q24H NAE Rx#:[id number] Intake, IV Titration 33.680 Amount propofoL 1,000 mg In 33.680 Empty Bag 1 bag @ 45 MCG/ KG/MIN 19.473 mls/hr IV . Q5H9M NAE Rx#:[id number] Tube Feeding 82 Output: Urine 3185 830 225 Other: Voiding Method Indwelling Catheter Indwelling Catheter Indwelling Catheter ABP, PAP, CO, CI - Last Documented Arterial Blood Pressure 165/70 - Exam -GENERAL: The patient is awake and alert, not in respiratory distress. HEENT: Pupils are round and equally reacting to light. EOMI. No scleral icterus. No conjunctival pallor. Normocephalic, atraumatic. No pharyngeal erythema. No thyromegaly. CARDIOVASCULAR: S1 and S2 present. No murmurs, rubs, or gallops. -PULMONARY: Chest is clear to auscultation, no wheezing , no crackles. Tachypnea with decreased air entry bilaterally ABDOMEN: Soft, nontender, nondistended, normoactive bowel sounds. No palpable organomegaly. MUSCULOSKELETAL: No joint swelling or deformity. EXTREMITIES: No cyanosis, clubbing, or pedal edema. NEUROLOGICAL: Gross neurological examination did not reveal any focal deficits. SKIN: No rashes. no petechiae. - Labs CBC & Chem 7: 09/29/22 04:01 09/29/22 04:01 Labs: Abnormal Lab Results - Last 24 Hours (Table) 09/28/22 09/29/22 09/29/22 Range/Units 18:10 04:01 04:01 Plt Count 148 L (150-450) k/uL Neutrophils # 9.5 H (1.3-7.7) k/uL Lymphocytes # 0.7 L (1.0-4.8) k/uL Carbon Dioxide 32 H (22-30) mmol/L BUN 26 H (7-17) mg/dL Glucose 141 H (74-99) mg/dL Magnesium 2.5 H (1.6-2.3) mg/dL Microbiology - Last 24 Hours (Table) 09/26/22 03:40 Blood Culture - Preliminary Blood 09/26/22 03:30 Blood Culture - Preliminary Blood Assessment and Plan Assessment: Acute asthma/COPD exacerbation Acute hypoxic respiratory failure secondary to above, requiring mechanical ventilation, status post extubation 09/28 Acute metabolic acidosis Lactic acidosis Hypernatremia and hyperkalemia History of kidney stone Hearing difficulty History of left breast cancer s/p Left breast lumpectomy and lymph node removal History of cataract Plan: Start the patient on IV salmeterol Continue with oxygen as needed with pulmonary/critical care team following the patient closely Transfer out of the ICU Labs and medication were reviewed.. Continue same treatment. Continue with symptomatic treatment. Resume home medication. Monitor labs and vitals. DVT and GI prophylaxis. Further recommendations as per clinical course of the patient DVT prophylaxis: Subcutaneous heparin GI Prophylaxis: Pepcid PT/OT: Pending Prognosis is guarded
[2022-09-29 11:09] VITALS: BMI 26.6
[2022-09-29] MEDS: ACETAMINOPHEN TAB 325 MG TAB PO PRN ×2 (12:50→22:53)
[2022-09-29] MEDS: methylPREDNISolone SOD SUCCI 40 MG/ML 1 ML VIAL IV SCH (15:54)
[2022-09-29] MEDS: SYMBICORT 160-4.5 MCG INHALER INHALATION SCH (20:36)
[2022-09-30] MEDS: methylPREDNISolone SOD SUCCI 40 MG/ML 1 ML VIAL IV SCH (00:15)
[2022-09-30] MEDS: LACTATED RINGERS 1,000 ML IV SCH (00:16)
[2022-09-30] MEDS: IPRATROPIUM-ALBUTEROL 3 ML NEB INHALATION SCH ×4 (07:27→20:03)
[2022-09-30] MEDS: SYMBICORT 160-4.5 MCG INHALER INHALATION SCH ×2 (07:27→20:03)
[2022-09-30] MEDS: FAMOTIDINE 20 MG/2 ML VIAL IV SCH ×2 (08:38→20:00)
[2022-09-30] MEDS: HEPARIN SODIUM,PORCINE 5,000 UNIT/ML 1 ML VIAL SQ SCH ×2 (08:38→20:00)
[2022-09-30] MEDS: predniSONE 20 MG TAB PO SCH (08:38)
[2022-09-30] MEDS: ACETAMINOPHEN TAB 325 MG TAB PO PRN ×2 (09:36→14:19)
--- NOTE | 2022-09-30 11:29 | P.PN ---
Subjective Progress Note Date: 09/30/22 This is a 57-year-old female patient with a known history of previous chronic tobacco dependence, chronic obstructive pulmonary disease, breast cancer status post lumpectomy, previous bariatric surgery, hearing disorder, asthma maintained on an oral and albuterol HFA in the outpatient setting. Been having issues with his possible upper respiratory infection the last several days and yesterday she was utilizing her nebulizer twice without much improvement. Her brought her to the emergency department after she started turning blue. Initial O2 saturation on room air was 55%. She was tachycardic. Tachypneic. Subsequently requiring intubation mechanical ventilatory support. Asked x-ray revealed evidence of hyperinflation. No pleural effusion, consolidation or pneumothorax. White count 13.8. Hemoglobin 16.2. D-dimer 0.25. Sodium 148. Potassium 5.3. Bicarb 19. BUN 15. Creatinine 0.74. Glucose 169. AST 37. ALT 20. Troponin negative 1. ProBNP 122. Urinalysis cloudy with 2+ protein 2+ glucose. She is seen today in consultation in the emergency department. She is currently on mechanical ventilator with settings of assist control mode at a rate of 20, tidal volume 450, FiO2 50% and a PEEP of 5. Initial blood gases revealed a PaO2 of 400, pCO2 46 and a pH of 7.23 and that was initially on 100% FiO2. She is receiving propofol at 45 mcg/kg/m. Lactated Ringer's at 130 ML's per hour. The patient is seen today on 09/27/2022 in follow-up in the intensive care unit. She remains intubated on the mechanical ventilator with settings of assist control mode at a rate of 20, tidal volume 450, FiO2 40% and a PEEP of 5. Morning blood gases revealed a pO2 of 222, pCO2 36, pH 7.40-50% FiO2. Current peak pressures 23, plateau pressure 16. Currently sedated on propofol at 50 mcg/kg/m. Lactated Ringer's at 130 ML's per hour. Remains on DuoNeb inhalations, Pulmicort and performs inhalations, IV Solu-Medrol. Chest x-ray reveals no acute pulmonary process. Endotracheal tube and gastric tubes in good position. Left central line in place. Been culture pending. White count 3.1. Hemoglobin 12.6. Platelets 141. Sodium 137. Potassium 3.6. Bicarb 21. BUN 1 3. Creatinine 0.50. Glucose 187. Pro calcitonin was 0.10. Patient seen today 09/28/2022 in follow-up in intensive care unit. She remains intubated on mechanical ventilator currently an assist-control mode at a rate of 20, tidal balm 450, FiO2 30% and a PEEP of 5. Peak airway pressure 24. Plateau pressure 16. When blood gases reveal a P O2 of 110, pCO2 38, pH of 7.46. She is currently sedated on propofol at 40 mcg/kg/m. She is receiving lactated Ringer's at 130 ML's per hour. She is on vital HP at 41 arnulfo liters per hour which is her goal. She is currently in sinus rhythm. She remains on DuoNeb inhalations, Pulmicort and performs inhalations, IV Solu-Medrol. Chest x-ray reveals clear lung claros. Endotracheal and nasogastric tube secured in place. Blood and sputum cultures pending. White count 9.4. Hemoglobin 12.3. Sodium 137. Potassium 4.1. Bicarb 26. BUN 20. Creatinine 0.56. Glucose 167. She is currently in a positive 4 liter balance since admission. The patient is seen today 09/29/2022 in follow-up in the intensive care unit. She was successfully extubated yesterday. She is currently on 2 L nasal cannula. She has lactated Ringer's at [facility]. Chest x-ray reveals chronic changes but no acute pulmonary process. Blood cultures reveal no growth. Sputum c ulture reveals no growth. White count 10.5. Hemoglobin 13.3. Platelets 148. Sodium 139. Potassium 4.0. Bicarb 27. BUN 26. Creatinine 0.60. Glucose 141. She is continued on DuoNeb inhalations, Pulmicort and Perforomist inhalations, IV Solu-Medrol. Heparin for DVT prophylaxis. The patient is seen today 09/30/2022 in follow-up on the regular medical floor. She is currently sitting up in bed. Awake and alert in no acute distress. She is maintaining O2 saturations in the 90s on 2 L/m per nasal cannula. No IV fluids. No new labs today. She is continued on DuoNeb inhalations, Symbicort, Solu-Medrol. Heparin for DVT prophylaxis. Objective - Vital Signs Vital signs: Vital Signs Temp 98.7 F 09/30/22 08:08 Pulse 87 09/30/22 08:08 Resp 18 09/30/22 08:08 BP 155/78 09/30/22 08:08 Pulse Ox 95 09/30/22 08:08 FiO2 30 09/28/22 09:46 Intake & Output 09/29/22 09/30/22 09/30/22 18:59 06:59 18:59 Intake Total 60 240 Output Total 925 Balance -865 240 Weight 72.6 kg 68 kg Intake: IV 60 Lactated Ringers 1,000 ml 60 @ 20 mls/hr IV .Q24H NAE Rx#:[id number] Oral 240 Output: Urine 925 Other: Voiding Method Indwelling Catheter Bedside Commode Bedside Commode # Voids 1 # Bowel Movements 1 0 ABP, PAP, CO, CI - Last Documented Arterial Blood Pressure 165/70 - Exam GENERAL EXAM: Awake, alert, pleasant 57-year-old female, on 2 liters nasal cannula, comfortable in no apparent distress. HEAD: Normocephalic. EYES: Normal reaction of pupils, equal size. NOSE: Clear with pink turbinates. THROAT: No erythema or exudates. NECK: No masses, no JVD. CHEST: No chest wall deformity. LUNGS: Equal air entry with no crackles, wheeze, rhonchi or dullness. CVS: S1 and S2 normal with no audible murmur, regular rhythm. ABDOMEN: No hepatosplenomegaly, normal bowel sounds, no guarding or rigidity. SPINE: No scoliosis or deformity SKIN: No rashes CENTRAL NERVOUS SYSTEM: No focal deficit, tone is normal in all 4 extremities. EXTREMITIES: There is no peripheral edema. No clubbing, no cyanosis. P eripheral pulses are intact. - Labs CBC & Chem 7: 09/29/22 04:01 09/29/22 04:01 Labs: Microbiology - Last 24 Hours (Table) 09/26/22 03:40 Blood Culture - Preliminary Blood 09/26/22 03:30 Blood Culture - Preliminary Blood 09/26/22 09:35 Gram Stain - Final Sputum Sputum Culture - Final Assessment and Plan Assessment: Acute hypoxemic respiratory failure secondary to an acute exacerbation of chronic obstructive pulmonary diseaseasthma History of previous chronic tobacco dependence History of breast cancer status post lumpectomy, suspect right History of hearing disorder History of nephrolithiasis History of bariatric surgery Plan: The patient was seen and evaluated Currently stable and on 2 L nasal cannula Discontinue Solu-Medrol, initiated prednisone taper Titrate down the FiO2 as tolerated We will continue to follow I have personally seen and examined the patient, performed the documentation and the assessment and plan as written. Number of minutes spent on the visit: 10.
--- NOTE | 2022-09-30 14:16 | P.PN ---
Subjective Progress Note Date: 09/30/22 57 years old female with multiple medical problems including asthma, COPD, Hearing Disorder / Deafness, Kidney stones, hx left breast cancer, cataracts, s/p Left breast lumpectomy and lymph node removal, Presents because of shortness of breath. With acute hypoxic respiratory failure and oxygen saturation 1 down to 55% and she had to be intubated and placed on mechanical ventilation in the emergency room I saw the patient in the ICU she was on mechanical ventilation. She cannot provide information and it was obtained from staff and medical records. Also patient had history of upper respiratory infection a few days prior to hospitalization. Further information are limited now and no family member at bedside Patient was tachypneic with a breathing rate around 30, afebrile. Mildly tachycardic with heart rate 123. Currently respiratory rate is an 20 and heart rate 74 She has mild leukocytosis of 13.8, hemoglobin 16.2, d-dimer is -0.25. INR 1.0. PH is 7.2, pCO2 slightly up at 46 and PaO2 more than 400 On admission sodium 148, potassium 5.3. Creatinine normal 0.4. Thick acid is 9.0, dose 2.7. Liver enzymes not elevated. Urine analysis is mildly abnormal for Suspicious for infection or dehydrated sample Chest x-ray: Hyperinflated lungs with incomplete visualization of the right costal phrenic sulcus, no evidence of consultation. Endotracheal tube at 4.1 cm above the navi. EKG showing sinus tachycardia at the rate of [address]-T changes 09/27/2022 Patient remains in the ICU sedated and intubated with pulmonary/critical care team followed closely Patient showed some improvement with less requirement for FiO2 down to 30% She undergoing spontaneous breathing trial with pulmonary team for possible extubation soon. She remains on IV Solu-Medrol 60 mg and ringer lactate with 30 mL/h 09/28/2022 Patient remains in the ICU in critical condition, she is sedated and intubated with pulmonary/critical care team followed closely She got 1 dose of Lasix today She undergoes a sedation holiday and breathing trial and to be extubated 1 parameters allow. She is on IV Solu-Medrol 60 mg and ringer lactate with 130 mL/h 09/29/2022 Patient status post extubation yesterday She is saturating well on to monitor oxygen via nasal cannula She denies chest pain or dyspnea. Some internal is currently running at 40 mg every 8 hours, also she was placed on Symbicort. No IV fluids. Patient planned to be transferred out of the ICU. 09/30/2022 Patient seen and evaluated bedside, on nasal cannula, does complain of cough, and shortness of breath Objective - Vital Signs Vital signs: Vital Signs Temp 97.5 F L 09/30/22 13:50 Pulse 85 09/30/22 13:50 Resp 18 09/30/22 13:50 BP 145/70 09/30/22 13:50 Pulse Ox 96 09/30/22 13:50 FiO2 30 09/28/22 09:46 Intake & Output 09/29/22 09/30/22 09/30/22 18:59 06:59 18:59 Intake Total 60 240 Output Total 925 Balance -865 240 Weight 72.6 kg 68 kg Intake: IV 60 Lactated Ringers 1,000 ml 60 @ 20 mls/hr IV .Q24H NAE Rx#:[id number] Oral 240 Output: Urine 925 Other: Voiding Method Indwelling Catheter Bedside Commode Bedside Commode # Voids 1 # Bowel Movements 1 0 ABP, PAP, CO, CI - Last Documented Arterial Blood Pressure 165/70 - Exam PHYSICAL EXAMINATION: GENERAL: The patient is alert and oriented x3, ill appearance, nasal cannula in place, HEENT: Pupils are round and equally reacting to light. EOMI. No scleral icterus. No conjunctival pallor. Normocephalic, atraumatic. No pharyngeal erythema. No thyromegaly. CARDIOVASCULAR: S1 and S2 present. No murmurs, rubs, or gallops. PULMONARY: Decreased breath sounds bilaterally, wheezing noted ABDOMEN: Soft, nontender, nondistended, normoactive bowel sounds. No palpable organomegaly. MUSCULOSKELETAL: No joint swelling or deformity. EXTREMITIES: No cyanosis, clubbing, or pedal edema. NEUROLOGICAL: Gross neurological examination did not reveal any focal deficits. SKIN: No rashes. - Labs CBC & Chem 7: 09/29/22 04:01 09/29/22 04:01 Labs: Microbiology - Last 24 Hours (Table) 09/26/22 03:40 Blood Culture - Preliminary Blood 09/26/22 03:30 Blood Culture - Preliminary Blood 09/26/22 09:35 Gram Stain - Final Sputum Sputum Culture - Final Assessment and Plan Assessment: Acute asthma/COPD exacerbation Acute hypoxic respiratory failure requiring mechanical ventilation, status post extubation 09/28 Acute metabolic acidosis Hypernatremia and hyperkalemia RESOLVED History of kidney stone Hearing difficulty History of left breast cancer s/p Left breast lumpectomy and lymph node removal History of cataract Plan: * Patient seen by medical ICU, pulmonary medicine * Continue patient on breathing treatments, on DuoNeb, transition from IV Solu- Medrol to prednisone * In regards to history of breast cancer and anastrozole resumed * In to follow up on CRP and pro-calcitonin levels * Heparin for DVT prophylaxis
[2022-10-01] MEDS: ACETAMINOPHEN TAB 325 MG TAB PO PRN (00:01)
[2022-10-01] MEDS: LACTATED RINGERS 1,000 ML IV SCH (00:03)
[2022-10-01 02:54] VITALS: RESP 16; TEMP 98.7
[2022-10-01] MEDS: SYMBICORT 160-4.5 MCG INHALER INHALATION SCH (07:48)
[2022-10-01] MEDS: IPRATROPIUM-ALBUTEROL 3 ML NEB INHALATION SCH ×3 (07:48→14:49)
[2022-10-01] MEDS ORDERED: NON FORMULARY DRUG (Umeclidinium Brm/Vilanterol Tr [Anoro Ellipta 62.5-25 Mcg Inh] 1 EACH INHALATION SCH (08:00)
[2022-10-01 08:22] VITALS: BP 137/75
[2022-10-01] MEDS ORDERED: ANASTROZOLE 1 MG TAB PO SCH (09:00)
[2022-10-01] MEDS: predniSONE 20 MG TAB PO SCH (09:05)
[2022-10-01] MEDS: FAMOTIDINE 20 MG/2 ML VIAL IV SCH (09:05)
[2022-10-01] MEDS: HEPARIN SODIUM,PORCINE 5,000 UNIT/ML 1 ML VIAL SQ SCH (09:05)
--- NOTE | 2022-10-01 10:09 | P.PN ---
Subjective Progress Note Date: 10/01/22 This is a 57-year-old female patient with a known history of previous chronic tobacco dependence, chronic obstructive pulmonary disease, breast cancer status post lumpectomy, previous bariatric surgery, hearing disorder, asthma maintained on an oral and albuterol HFA in the outpatient setting. Been having issues with his possible upper respiratory infection the last several days and yesterday she was utilizing her nebulizer twice without much improvement. Her brought her to the emergency department after she started turning blue. Initial O2 saturation on room air was 55%. She was tachycardic. Tachypneic. Subsequently requiring intubation mechanical ventilatory support. Asked x-ray revealed evidence of hyperinflation. No pleural effusion, consolidation or pneumothorax. White count 13.8. Hemoglobin 16.2. D-dimer 0.25. Sodium 148. Potassium 5.3. Bicarb 19. BUN 15. Creatinine 0.74. Glucose 169. AST 37. ALT 20. Troponin negative 1. ProBNP 122. Urinalysis cloudy with 2+ protein 2+ glucose. She is seen today in consultation in the emergency department. She is currently on mechanical ventilator with settings of assist control mode at a rate of 20, tidal volume 450, FiO2 50% and a PEEP of 5. Initial blood gases revealed a PaO2 of 400, pCO2 46 and a pH of 7.23 and that was initially on 100% FiO2. She is receiving propofol at 45 mcg/kg/m. Lactated Ringer's at 130 ML's per hour. The patient is seen today on 09/27/2022 in follow-up in the intensive care unit. She remains intubated on the mechanical ventilator with settings of assist control mode at a rate of 20, tidal volume 450, FiO2 40% and a PEEP of 5. Morning blood gases revealed a pO2 of 222, pCO2 36, pH 7.40-50% FiO2. Current peak pressures 23, plateau pressure 16. Currently sedated on propofol at 50 mcg/kg/m. Lactated Ringer's at 130 ML's per hour. Remains on DuoNeb inhalations, Pulmicort and performs inhalations, IV Solu-Medrol. Chest x-ray reveals no acute pulmonary process. Endotracheal tube and gastric tubes in good position. Left central line in place. Been culture pending. White count 3.1. Hemoglobin 12.6. Platelets 141. Sodium 137. Potassium 3.6. Bicarb 21. BUN 1 3. Creatinine 0.50. Glucose 187. Pro calcitonin was 0.10. Patient seen today 09/28/2022 in follow-up in intensive care unit. She remains intubated on mechanical ventilator currently an assist-control mode at a rate of 20, tidal balm 450, FiO2 30% and a PEEP of 5. Peak airway pressure 24. Plateau pressure 16. When blood gases reveal a P O2 of 110, pCO2 38, pH of 7.46. She is currently sedated on propofol at 40 mcg/kg/m. She is receiving lactated Ringer's at 130 ML's per hour. She is on vital HP at 41 arnulfo liters per hour which is her goal. She is currently in sinus rhythm. She remains on DuoNeb inhalations, Pulmicort and performs inhalations, IV Solu-Medrol. Chest x-ray reveals clear lung claros. Endotracheal and nasogastric tube secured in place. Blood and sputum cultures pending. White count 9.4. Hemoglobin 12.3. Sodium 137. Potassium 4.1. Bicarb 26. BUN 20. Creatinine 0.56. Glucose 167. She is currently in a positive 4 liter balance since admission. The patient is seen today 09/29/2022 in follow-up in the intensive care unit. She was successfully extubated yesterday. She is currently on 2 L nasal cannula. She has lactated Ringer's at [facility]. Chest x-ray reveals chronic changes but no acute pulmonary process. Blood cultures reveal no growth. Sputum c ulture reveals no growth. White count 10.5. Hemoglobin 13.3. Platelets 148. Sodium 139. Potassium 4.0. Bicarb 27. BUN 26. Creatinine 0.60. Glucose 141. She is continued on DuoNeb inhalations, Pulmicort and Perforomist inhalations, IV Solu-Medrol. Heparin for DVT prophylaxis. The patient is seen today 09/30/2022 in follow-up on the regular medical floor. She is currently sitting up in bed. Awake and alert in no acute distress. She is maintaining O2 saturations in the 90s on 2 L/m per nasal cannula. No IV fluids. No new labs today. She is continued on DuoNeb inhalations, Symbicort, Solu-Medrol. Heparin for DVT prophylaxis. The patient is seen today 10/01/2022 in follow-up on the regular medical floor. She is doing very well. She is sitting up in bed. Awake and alert in no acute distress. Feeling nearly back to her baseline. Maintaining O2 saturations in the mid 90s on room air. Afebrile. Hemodynamically stable. The cultures revealed no growth. Sputum culture revealed no growth. No new labs today. She is continued on Symbicort, DuoNeb inhalations, prednisone taper. Heparin for DVT prophylaxis. Objective - Vital Signs Vital signs: Vital Signs Temp 98.7 F 10/01/22 08:08 Pulse 84 10/01/22 08:08 Resp 16 10/01/22 08:08 BP 137/75 10/01/22 08:08 Pulse Ox 96 10/01/22 08:08 FiO2 30 09/28/22 09:46 Intake & Output 09/30/22 10/01/22 10/01/22 18:59 06:59 18:59 Intake Total 720 Balance 720 Weight 68.9 kg Intake: Oral 720 Other: Voiding Method Bedside Commode Bedside Commode # Voids 3 2 ABP, PAP, CO, CI - Last Documented Arterial Blood Pressure 165/70 - Exam GENERAL EXAM: Awake, pleasant 57-year-old female, on room air, comfortable in no apparent distress. HEAD: Normocephalic. EYES: Normal reaction of pupils, equal size. NOSE: Clear with pink turbinates. THROAT: No erythema or exudates. NECK: No masses, no JVD. CHEST: No chest wall deformity. LUNGS: Equal air entry with no crackles, wheeze, rhonchi or dullness. CVS: S1 and S2 normal with no audible murmur, regular rhythm. ABDOMEN: No hepatosplenomegaly, normal bowel sounds, no guarding or rigidity. SPINE: No scoliosis or deformity SKIN: No rashes CENTRAL NERVOUS SYSTEM: No focal deficit, tone is normal in all 4 extremities. EXTREMITIES: There is no peripheral edema. No clubbing, no cyanosis. Peripheral pulses are intact. - Labs CBC & Chem 7: 09/29/22 04:01 09/29/22 04:01 Assessment and Plan Assessment: Acute hypoxemic respiratory failure secondary to an acute exacerbation of chronic obstructive pulmonary diseaseasthma History of previous chronic tobacco dependence History of breast cancer status post lumpectomy, suspect right History of hearing disorder History of nephrolithiasis History of bariatric surgery Plan: The patient was seen and evaluated Currently stable and on room air Cleared for discharge from the pulmonary standpoint Continue her home pulmonary medications Complete a prednisone taper Follow-up in our office in 1 week I have personally seen and examined the patient, performed the documentation and the assessment and plan as written. Number of minutes spent on the visit: 10.
[2022-10-01 10:23] LABS: HCT 42.3 % (34.0-46.0); HGB 13.8 gm/dL (11.4-16.0); MCH 30.4 pg (25.0-35.0); MCHC 32.7 g/dL (31.0-37.0); Mean Platelet Volume 7.8; Platelet Count 153 k/uL (150-450); RBC 4.54 m/uL (3.80-5.40); RDW 13.6 % (11.5-15.5); WBC 7.7 k/uL (3.8-10.6)
[2022-10-01 10:53] LABS: African American GFR (CKD) >90 (>60 ml/min/1.73 sqM); Anion Gap 6 mmol/L; Blood Urea Nitrogen 18 mg/dL (7-17); C Reactive Protein <0.5 mg/dL (<1.0); Calcium 9.1 mg/dL (8.4-10.2); Carbon Dioxide 29 mmol/L (22-30); Chloride 105 mmol/L (98-107); Glucose 80 mg/dL (74-99); Non-African American GFR(CKD) >90 (>60 ml/min/1.73 sqM); Potassium 3.8 mmol/L (3.5-5.1); Sodium 140 mmol/L (137-145)
[2022-10-01 11:34] VITALS: PULSE 88
--- NOTE | 2022-10-01 11:38 | P.PN ---
Subjective Progress Note Date: 10/01/22 57 years old female with multiple medical problems including asthma, COPD, Hearing Disorder / Deafness, Kidney stones, hx left breast cancer, cataracts, s/p Left breast lumpectomy and lymph node removal, Presents because of shortness of breath. With acute hypoxic respiratory failure and oxygen saturation 1 down to 55% and she had to be intubated and placed on mechanical ventilation in the emergency room I saw the patient in the ICU she was on mechanical ventilation. She cannot provide information and it was obtained from staff and medical records. Also patient had history of upper respiratory infection a few days prior to hospitalization. Further information are limited now and no family member at bedside Patient was tachypneic with a breathing rate around 30, afebrile. Mildly tachycardic with heart rate 123. Currently respiratory rate is an 20 and heart rate 74 She has mild leukocytosis of 13.8, hemoglobin 16.2, d-dimer is -0.25. INR 1.0. PH is 7.2, pCO2 slightly up at 46 and PaO2 more than 400 On admission sodium 148, potassium 5.3. Creatinine normal 0.4. Thick acid is 9.0, dose 2.7. Liver enzymes not elevated. Urine analysis is mildly abnormal for Suspicious for infection or dehydrated sample Chest x-ray: Hyperinflated lungs with incomplete visualization of the right costal phrenic sulcus, no evidence of consultation. Endotracheal tube at 4.1 cm above the navi. EKG showing sinus tachycardia at the rate of [address]-T changes 09/27/2022 Patient remains in the ICU sedated and intubated with pulmonary/critical care team followed closely Patient showed some improvement with less requirement for FiO2 down to 30% She undergoing spontaneous breathing trial with pulmonary team for possible extubation soon. She remains on IV Solu-Medrol 60 mg and ringer lactate with 30 mL/h 09/28/2022 Patient remains in the ICU in critical condition, she is sedated and intubated with pulmonary/critical care team followed closely She got 1 dose of Lasix today She undergoes a sedation holiday and breathing trial and to be extubated 1 parameters allow. She is on IV Solu-Medrol 60 mg and ringer lactate with 130 mL/h 09/29/2022 Patient status post extubation yesterday She is saturating well on to monitor oxygen via nasal cannula She denies chest pain or dyspnea. Some internal is currently running at 40 mg every 8 hours, also she was placed on Symbicort. No IV fluids. Patient planned to be transferred out of the ICU. 09/30/2022 Patient seen and evaluated bedside, on nasal cannula, does complain of cough, and shortness of breath 10/01/22 Patient seen and evaluated bedside, patient is weaned down to room air, patient noted to have left anterior chest wall laceration. Likely secondary to central line placement, hosing and blood transfusion and discharge noted Requested general surgery to evaluate Objective - Vital Signs Vital signs: Vital Signs Temp 98.7 F 10/01/22 08:08 Pulse 88 10/01/22 11:34 Resp 16 10/01/22 08:08 BP 137/75 10/01/22 08:08 Pulse Ox 96 10/01/22 08:08 FiO2 30 09/28/22 09:46 Intake & Output 09/30/22 10/01/22 10/01/22 18:59 06:59 18:59 Intake Total 720 Balance 720 Weight 68.9 kg Intake: Oral 720 Other: Voiding Method Bedside Commode Bedside Commode Bedside Commode # Voids 3 2 ABP, PAP, CO, CI - Last Documented Arterial Blood Pressure 165/70 - Exam PHYSICAL EXAMINATION: GENERAL: The patient is alert and oriented x3, ill appearance, nasal cannula in place, HEENT: Pupils are round and equally reacting to light. EOMI. No scleral icterus. No conjunctival pallor. Normocephalic, atraumatic. No pharyngeal erythema. No thyromegaly. CARDIOVASCULAR: S1 and S2 present. No murmurs, rubs, or gallops. PULMONARY: Decreased breath sounds bilaterally, wheezing noted ABDOMEN: Soft, nontender, nondistended, normoactive bowel sounds. No palpable organomegaly. MUSCULOSKELETAL: No joint swelling or deformity. EXTREMITIES: No cyanosis, clubbing, or pedal edema. NEUROLOGICAL: Gross neurological examination did not reveal any focal deficits. SKIN: Left anterior chest wall laceration - Labs CBC & Chem 7: 10/01/22 09:00 09/29/22 04:01 Assessment and Plan Assessment: Acute asthma/COPD exacerbation Left anterior chest wall laceration Acute hypoxic respiratory failure requiring mechanical ventilation, status post extubation 09/28 Acute metabolic acidosis resolved Hypernatremia and hyperkalemia RESOLVED History of kidney stone Hearing difficulty History of left breast cancer s/p Left breast lumpectomy and lymph node removal History of cataract Plan: * Patient seen by medical ICU, pulmonary medicine * Continue patient on breathing treatments, on DuoNeb, transition from IV Solu- Medrol to prednisone, from pulmonary standpoint stable for discharge * Noted to have left anterior chest wall laceration requested general surgery to evaluate for suturing * In regards to history of breast cancer and anastrozole resumed * In to follow up on CRP and pro-calcitonin levels * Heparin for DVT prophylaxis
--- NOTE | 2022-10-01 13:14 | P.DS ---
Providers Date of admission: 09/26/22 06:03 Expected date of discharge: 10/01/22 Attending physician: Cindi Alexis Consults: 09/26/22 05:59 Consult Physician Stat Consulting Provider: Herbie Cabrera Consult Reason/Comments: Acute respiratory failure. COPD exacerbation Do you want consulting provider notified?: Already Contacted 10/01/22 11:32 Consult Physician Routine Consulting Provider: Kvng Palafox Consult Reason/Comments: Left Abt chest wall lacertaion 7 mm, Need suture, Do you want consulting provider notified?: Yes Primary care physician: Stated None Hospital Course: 57 years old female with multiple medical problems including asthma, COPD, Hearing Disorder / Deafness, Kidney stones, hx left breast cancer, cataracts, s/p Left breast lumpectomy and lymph node removal, Presents because of shortness of breath. With acute hypoxic respiratory failure and oxygen saturation 1 down to 55% and she had to be intubated and placed on mechanical ventilation in the emergency room I saw the patient in the ICU she was on mechanical ventilation. She cannot provide information and it was obtained from staff and medical records. Also patient had history of upper respiratory infection a few days prior to hospitalization. Further information are limited now and no family member at bedside Patient was tachypneic with a breathing rate around 30, afebrile. Mildly tachycardic with heart rate 123. Currently respiratory rate is an 20 and heart rate 74 She has mild leukocytosis of 13.8, hemoglobin 16.2, d-dimer is -0.25. INR 1.0. PH is 7.2, pCO2 slightly up at 46 and PaO2 more than 400 On admission sodium 148, potassium 5.3. Creatinine normal 0.4. Thick acid is 9.0, dose 2.7. Liver enzymes not elevated. Urine analysis is mildly abnormal for Suspicious for infection or dehydrated sample Chest x-ray: Hyperinflated lungs with incomplete visualization of the right costal phrenic sulcus, no evidence of consultation. Endotracheal tube at 4.1 cm above the navi. EKG showing sinus tachycardia at the rate of [address]-T changes 09/27/2022 Patient remains in the ICU sedated and intubated with pulmonary/critical care team followed closely Patient showed some improvement with less requirement for FiO2 down to 30% She undergoing spontaneous breathing trial with pulmonary team for possible extubation soon. She remains on IV Solu-Medrol 60 mg and ringer lactate with 30 mL/h 09/28/2022 Patient remains in the ICU in critical condition, she is sedated and intubated with pulmonary/critical care team followed closely She got 1 dose of Lasix today She undergoes a sedation holiday and breathing trial and to be extubated 1 parameters allow. She is on IV Solu-Medrol 60 mg and ringer lactate with 130 mL/h 09/29/2022 Patient status post extubation yesterday She is saturating well on to monitor oxygen via nasal cannula She denies chest pain or dyspnea. Some internal is currently running at 40 mg every 8 hours, also she was placed on Symbicort. No IV fluids. Patient planned to be transferred out of the ICU. 09/30/2022 Patient seen and evaluated bedside, on nasal cannula, does complain of cough, and shortness of breath 10/01/22 Patient seen and evaluated bedside, patient is weaned down to room air, patient noted to have left anterior chest wall laceration. Likely secondary to central line placement, hosing and blood transfusion and discharge noted Requested general surgery to evaluate. Patient seen by general surgery and cleared for discharge Acute asthma/COPD exacerbation Left anterior chest wall laceration Acute hypoxic respiratory failure requiring mechanical ventilation, status post extubation 09/28 Acute metabolic acidosis resolved Hypernatremia and hyperkalemia RESOLVED History of kidney stone Hearing difficulty History of left breast cancer s/p Left breast lumpectomy and lymph node removal History of cataract Plan: * Patient seen by medical ICU, pulmonary medicine * Continue patient on breathing treatments, on DuoNeb, transition from IV Solu- Medrol to prednisone, from pulmonary standpoint stable for discharge * Noted to have left anterior chest wall laceration requested general surgery to evaluate for suturing * In regards to history of breast cancer and anastrozole resumed * Patient placed on tapered dose of prednisone Patient Condition at Discharge: Fair Plan - Discharge Summary Discharge Rx Participant: Yes New Discharge Prescriptions: New predniSONE [Deltasone] See Taper PO DAILY 12 Days #16 tab Continue Albuterol Nebulized [Ventolin Nebulized] 2.5 mg INHALATION RT-Q4H PRN PRN Reason: Shortness Of Breath Umeclidinium Brm/Vilanterol Tr [Anoro Ellipta 62.5-25 Mcg INH] 1 puff INHALATION RT-DAILY Anastrozole 1 mg PO DAILY Albuterol Inhaler [Ventolin Hfa Inhaler] 1 - 2 puff INHALATION RT-Q6H PRN PRN Reason: Difficulty breathing Discharge Medication List Albuterol Nebulized [Ventolin Nebulized] 2.5 mg INHALATION RT-Q4H PRN 05/08/22 [History] Umeclidinium Brm/Vilanterol Tr [Anoro Ellipta 62.5-25 Mcg INH] 1 puff INHALATION RT-DAILY 07/11/22 [History] Albuterol Inhaler [Ventolin Hfa Inhaler] 1 - 2 puff INHALATION RT-Q6H PRN 09/26/22 [History] Anastrozole 1 mg PO DAILY 09/26/22 [History] predniSONE [Deltasone] See Taper PO DAILY 12 Days #16 tab 10/01/22 [Rx] Follow up Appointment(s)/Referral(s): None,Stated [Primary Care Provider] - 1-2 days Discharge Disposition: HOME SELF-CARE
--- NOTE | 2022-10-01 14:31 | P.GSCN ---
History of Present Illness Consult date: 10/01/22 Reason for Consult: Chest wall laceration History of present illness: Is a 57-year-old female who had a triple-lumen catheter removed from her left upper chest 2 days ago. Patient's had some intermittent serosanguineous drainage from the catheter insertion site. Past Medical History Past Medical History: Asthma, Cancer, COPD, Eye Disorder, Hearing Disorder / Deafness Additional Past Medical History / Comment(s): Kidney stones, hx left breast cancer, cataracts, hard of hearing. History of Any Multi-Drug Resistant Organisms: None Reported Past Surgical History: Bariatric Surgery, Breast Surgery, Cholecystectomy, Ear Surgery, Hysterectomy, Tonsillectomy Additional Past Surgical History / Comment(s): Left breast lumpectomy and lymph node removal, left ear drum reconstruction. Past Alcohol Use History: None Reported - Past Family History Mother Additional Family Medical History / Comment(s): Brain cancer, pacemaker. Sister(s) Additional Family Medical History / Comment(s): "Heart issues" and had cardiac ablation. Medications and Allergies Home Medications Medication Instructions Recorded Confirmed Type Albuterol Nebulized [Ventolin 2.5 mg INHALATION RT-Q4H PRN 05/08/22 09/26/22 History Nebulized] Umeclidinium Brm/Vilanterol Tr 1 puff INHALATION RT-DAILY 07/11/22 09/26/22 History [Anoro Ellipta 62.5-25 Mcg INH] Albuterol Inhaler [Ventolin Hfa 1 - 2 puff INHALATION RT-Q6H PRN 09/26/22 09/26/22 History Inhaler] Anastrozole 1 mg PO DAILY 09/26/22 09/26/22 History predniSONE [Deltasone] See Taper PO DAILY 12 Days #16 tab 10/01/22 Rx Allergies Allergy/AdvReac Type Severity Reaction Status Date / Time adhesive tape Allergy Itching Verified 09/26/22 08:31 clarithromycin [From Biaxin] Allergy Rash/Hives Verified 09/26/22 08:31 morphine Allergy Anaphylaxis Verified 09/26/22 08:31 NSAIDS (Non-Steroidal Allergy Unknown Verified 09/26/22 08:31 Anti-Inflamma Penicillins Allergy Rash/Hives Verified 09/26/22 08:31 shellfish derived [Shellfish] Allergy Anaphylaxis Verified 09/26/22 08:31 Sulfa (Sulfonamide Allergy Rash/Hives Verified 09/26/22 08:31 Antibiotics) Surgical - Exam Vital Signs Temp Pulse Resp BP Pulse Ox 97.8 F 123 H 30 H 137/11 55 L 09/26/22 03:04 09/26/22 03:04 09/26/22 03:04 09/26/22 03:04 09/26/22 03:04 - General well developed, well nourished, no distress - Eyes PERRL - Respiratory normal expansion - Neurologic Chest wall shows a 4 mm puncture site where her catheter was. There is no sign of infection. There is a very minimal serosanguineous drainage from the area. Results - Labs 10/01/22 09:00 10/01/22 09:00 Abnormal Lab Results - Last 24 Hours (Table) 10/01/22 Range/Units 09:00 BUN 18 H (7-17) mg/dL Microbiology - Last 24 Hours (Table) 09/26/22 03:40 Blood Culture - Final Blood 09/26/22 03:30 Blood Culture - Final Blood Diabetes panel 10/01/22 Range/Units 09:00 Sodium 140 (137-145) mmol/L Potassium 3.8 (3.5-5.1) mmol/L Chloride 105 (98-107) mmol/L Carbon Dioxide 29 (22-30) mmol/L BUN 18 H (7-17) mg/dL Creatinine 0.68 (0.52-1.04) mg/dL Glucose 80 (74-99) mg/dL Calcium 9.1 (8.4-10.2) mg/dL Calcium panel 10/01/22 Range/Units 09:00 Calcium 9.1 (8.4-10.2) mg/dL Pituitary panel 10/01/22 Range/Units 09:00 Sodium 140 (137-145) mmol/L Potassium 3.8 (3.5-5.1) mmol/L Chloride 105 (98-107) mmol/L Carbon Dioxide 29 (22-30) mmol/L BUN 18 H (7-17) mg/dL Creatinine 0.68 (0.52-1.04) mg/dL Glucose 80 (74-99) mg/dL Calcium 9.1 (8.4-10.2) mg/dL Adrenal panel 10/01/22 Range/Units 09:00 Sodium 140 (137-145) mmol/L Potassium 3.8 (3.5-5.1) mmol/L Chloride 105 (98-107) mmol/L Carbon Dioxide 29 (22-30) mmol/L BUN 18 H (7-17) mg/dL Creatinine 0.68 (0.52-1.04) mg/dL Glucose 80 (74-99) mg/dL Calcium 9.1 (8.4-10.2) mg/dL Assessment and Plan Assessment: Serous sinus drainage from catheter insertion site of left chest wall. I would recommend occlusive dressing. The patient will follow-up as needed.
== END 2022-10-01 15:03 | disposition home or self-care (01) | DRG 133 ==
LOC: EC 02:57 → 2SICU 06:03 → 5NMEDONC 09-29 19:05
PROVIDERS: ADMIT Hospitalist; ATTEND Hospitalist
PROC: 5A1945Z Respiratory Ventilation, 24-96 Consecutive Hours (ICD-10-PCS; principal; 2022-09-26)
PROC: 0BH18EZ Insertion of Endotracheal Airway into Trachea, Via Natural or Artificial Opening Endoscopic (ICD-10-PCS; 2022-09-26)
PROC: 02HV33Z Insertion of Infusion Device into Superior Vena Cava, Percutaneous Approach (ICD-10-PCS; 2022-09-26)
PROC: 3E043XZ Introduction of Vasopressor into Central Vein, Percutaneous Approach (ICD-10-PCS; 2022-09-26)
PROC: 03HY32Z Insertion of Monitoring Device into Upper Artery, Percutaneous Approach (ICD-10-PCS; 2022-09-26)
PROC: 4A133B1 Monitoring of Arterial Pressure, Peripheral, Percutaneous Approach (ICD-10-PCS; 2022-09-26)
PROC: 4A133J1 Monitoring of Arterial Pulse, Peripheral, Percutaneous Approach (ICD-10-PCS; 2022-09-26)
PROC: 0D9670Z Drainage of Stomach with Drainage Device, Via Natural or Artificial Opening (ICD-10-PCS; 2022-09-26)
PROC: 3E0G76Z Introduction of Nutritional Substance into Upper GI, Via Natural or Artificial Opening (ICD-10-PCS; 2022-09-27)
DX: J96.01 Acute respiratory failure with hypoxia (principal); J44.1 Chronic obstructive pulmonary disease with (acute) exacerbation; E87.21 Acute metabolic acidosis; E87.0 Hyperosmolality and hypernatremia; F05 Delirium due to known physiological condition; S21.112A Laceration without foreign body of left front wall of thorax without penetration into thoracic cavity, initial encounter; J45.901 Unspecified asthma with (acute) exacerbation; E86.0 Dehydration; E87.5 Hyperkalemia; H91.90 Unspecified hearing loss, unspecified ear; J98.4 Other disorders of lung; J06.9 Acute upper respiratory infection, unspecified; I49.9 Cardiac arrhythmia, unspecified; W45.8XXA Other foreign body or object entering through skin, initial encounter; Y92.230 Patient room in hospital as the place of occurrence of the external cause; I49.1 Atrial premature depolarization; Z20.822 Contact with and (suspected) exposure to COVID-19; Z28.310 Unvaccinated for COVID-19; Z87.891 Personal history of nicotine dependence; Z98.84 Bariatric surgery status; Z79.51 Long term (current) use of inhaled steroids; Z79.811 Long term (current) use of aromatase inhibitors; Z88.5 Allergy status to narcotic agent; Z88.0 Allergy status to penicillin; Z88.6 Allergy status to analgesic agent; Z91.013 Allergy to seafood; Z85.3 Personal history of malignant neoplasm of breast; Z88.2 Allergy status to sulfonamides; Z88.1 Allergy status to other antibiotic agents; Z91.048 Other nonmedicinal substance allergy status
CPT/HCPCS: 31500; 36415; 36600; 71045; 80048; 80051; 80053; 81001; 82805; 83605; 83735; 83880; 84145; 84484; 85025; 85027; 85379; 85610; 85730; 86140; 87040; 87070; 87205; 87636; 93005; 94002; 94003; 94640; 94760; 96365; 96375; 96376; 99291

== ENCOUNTER 2023-03-11 08:17 | Emergency (ER) | payer OTHER ==
[2023-03-11 08:39] VITALS: RESP 18
[2023-03-11] MEDS ORDERED: IPRATROPIUM-ALBUTEROL 3 ML NEB INHALATION STA (08:39)
[2023-03-11] MEDS ORDERED: methylPREDNISolone SOD SUCCI 125 MG/2 ML VIAL IV STA (08:39)
--- NOTE | 2023-03-11 08:41 | ED ---
General Adult HPI - General Chief complaint: Shortness of Breath Stated complaint: SOB Time Seen by Provider: 03/11/23 08:36 Source: patient, family, RN notes reviewed Mode of arrival: ambulatory Limitations: no limitations - History of Present Illness Initial comments: Patient is a pleasant 57-year-old female present to the emergency department with cough and dyspnea. Onset of symptoms was just a couple days ago. Patient does have cough with thick clear to white sputum. No fevers. Patient does have some sinus congestion as well. Patient has wheezing and dyspnea. Patient does have history of similar symptoms previously associated with COPD. No calf pain or leg swelling. - Related Data Home Medications Medication Instructions Recorded Confirmed Albuterol Nebulized [Ventolin 2.5 mg INHALATION RT-Q4H PRN 05/08/22 09/26/22 Nebulized] Umeclidinium Brm/Vilanterol Tr 1 puff INHALATION RT-DAILY 07/11/22 09/26/22 [Anoro Ellipta 62.5-25 Mcg INH] Albuterol Inhaler [Ventolin Hfa 1 - 2 puff INHALATION RT-Q6H PRN 09/26/22 09/26/22 Inhaler] Anastrozole 1 mg PO DAILY 09/26/22 09/26/22 Previous Rx's Medication Instructions Recorded predniSONE [Deltasone] See Taper PO DAILY 12 Days #16 tab 10/01/22 Azithromycin [Zithromax Z Pack] 250 mg PO DAILY #6 tab 03/11/23 predniSONE [Deltasone] 20 mg PO BID #10 tab 03/11/23 Allergies Allergy/AdvReac Type Severity Reaction Status Date / Time adhesive tape Allergy Itching Verified 03/11/23 08:35 clarithromycin [From Biaxin] Allergy Rash/Hives Verified 03/11/23 08:35 morphine Allergy Anaphylaxis Verified 03/11/23 08:35 NSAIDS (Non-Steroidal Allergy Unknown Verified 03/11/23 08:35 Anti-Inflamma Penicillins Allergy Rash/Hives Verified 03/11/23 08:35 shellfish derived [Shellfish] Allergy Anaphylaxis Verified 03/11/23 08:35 Sulfa (Sulfonamide Allergy Rash/Hives Verified 03/11/23 08:35 Antibiotics) Review of Systems ROS Statement: Those systems with pertinent positive or pertinent negative responses have been documented in the HPI. ROS Other: All systems not noted in ROS Statement are negative. Constitutional: Denies: fever Eyes: Denies: eye pain ENT: Denies: ear pain Respiratory: Reports: as per HPI, cough, dyspnea Cardiovascular: Denies: chest pain Endocrine: Denies: fatigue Gastrointestinal: Denies: abdominal pain Genitourinary: Denies: dysuria Musculoskeletal: Denies: back pain Past Medical History Past Medical History: Asthma, Cancer, COPD, Eye Disorder, Hearing Disorder / Deafness Additional Past Medical History / Comment(s): Kidney stones, hx left breast cancer, cataracts, hard of hearing. History of Any Multi-Drug Resistant Organisms: None Reported Past Surgical History: Bariatric Surgery, Breast Surgery, Cholecystectomy, Ear Surgery, Hysterectomy, Tonsillectomy Additional Past Surgical History / Comment(s): Left breast lumpectomy and lymph node removal, left ear drum reconstruction. Past Alcohol Use History: None Reported - Past Family History Mother Additional Family Medical History / Comment(s): Brain cancer, pacemaker. Sister(s) Additional Family Medical History / Comment(s): "Heart issues" and had cardiac ablation. General Exam Limitations: no limitations General appearance: alert, in no apparent distress Head exam: Present: normocephalic Eye exam: Present: normal appearance Neck exam: Present: normal inspection Respiratory exam: Present: wheezes Cardiovascular Exam: Present: regular rate, normal rhythm GI/Abdominal exam: Present: soft. Absent: tenderness Extremities exam: Present: normal inspection. Absent: pedal edema, calf tenderness Neurological exam: Present: alert Psychiatric exam: Present: normal affect, normal mood Skin exam: Present: normal color Course Vital Signs 03/11/23 03/11/23 03/11/23 08:20 08:48 09:17 Temperature 98.8 F Pulse Rate 79 87 77 Respiratory 18 18 Rate Blood Pressure 153/77 124/104 O2 Sat by Pulse 95 97 Oximetry 03/11/23 09:27 Temperature Pulse Rate 80 Respiratory Rate Blood Pressure O2 Sat by Pulse Oximetry EKG Findings - EKG Results: EKG: interpreted by ERMD, sinus rhythm, normal axis, normal QRS, normal ST/T Medical Decision Making - Medical Decision Making Was pt. sent in by a medical professional or institution (, PA, FIRE PREVENTION FORESTER, urgent care, hospital, or alf...) When possible be specific @ -No Did you speak to anyone other than the patient for history (EMS, parent, family, police, friend...)? What history was obtained from this source @ - and present and helps confirm history including COPD Did you review nursing and triage notes (agree or disagree)? Why? @ -I reviewed and agree with nursing and triage notes Were old charts reviewed (outside hosp., previous admission, EMS record, old EKG, old radiological studies, urgent care reports/EKG's, alf records)? Report findings @ -Previous chest x-ray reviewed d Differential Diagnosis (chest pain, altered mental status, abdominal pain women, abdominal pain men, vaginal bleeding, weakness, fever, dyspnea, syncope, headache, dizziness, GI bleed, back pain, seizure, CVA, palpatations, mental health, musculoskeletal)? @ -Differential Dyspnea: Coronary syndrome, arrhythmia, tamponade, asthma, COPD, pulmonary embolism, pneumonia, pneumothorax, pulmonary effusion, anaphylaxis, diabetic ketoacidosis, flailed chest, pulmonary contusion, diaphragmatic rupture, anemia, neuromuscular, this is not meant to be an all-inclusive list. ble EKG interpreted by me (3pts min.). @ -As above X-rays interpreted by me (1pt min.). @ -X-ray shows no acute process e CT interpreted by me (1pt min.). @ -None done U/S interpreted by me (1pt. min.). @ -None done What testing was considered but not performed or refused? (CT, X-rays, U/S, labs)? Why? @ -None What meds were considered but not given or refused? Why? @ -None Did you discuss the management of the patient with other professionals (professionals i.e. , PA, FIRE PREVENTION FORESTER, lab, RT, psych nurse, director of social services, brewery technician, teacher, postal delivery officer, case specialist)? Give summary @ -No Was smoking cessation discussed for >3mins.? @ -No Was critical care preformed (if so, how long)? @ -No Were there social determinants of health that impacted care today? How? (Homelessness, low income, unemployed, alcoholism, drug addiction, transportation, low edu. Level, literacy, decrease access to med. care, long term, rehab)? @ -No Was there de-escalation of care discussed even if they declined (Discuss DNR or withdrawal of care, Hospice)? DNR status @ -No What co-morbidities impacted this encounter? (DM, HTN, Smoking, COPD, CAD, Cancer, CVA, ARF, Chemo, Hep., AIDS, mental health diagnosis, sleep apnea, morbid obesity)? @ -None Was patient admitted / discharged? Hospital course, mention meds given and route, prescriptions, significant lab abnormalities, going to OR and other pertinent info. @ -h patient reevaluated and significantly improved. Minimal wheezing. Patient feels much better and would like to be discharged home. Patient and f amily are updated. Prescription written. Rse Undiagnosed new problem with uncertain prognosis? @ -No Drug Therapy requiring intensive monitoring for toxicity (Heparin, Nitro, Insulin, Cardizem)? @ -No Were any procedures done? @ -No Diagnosis/symptom? @ -COPD exacerbation Acute, or Chronic, or Acute on Chronic? @ -Acute Uncomplicated (without systemic symptoms) or Complicated (systemic symptoms)? @ -Default Side effects of treatment? @ -No Exacerbation, Progression, or Severe Exacerbation? @ -Exacerbation of COPD Poses a threat to life or bodily function? How? (Chest pain, [place], [place], pneumonia, PE, COPD, DKA, ARF, appy, cholecystitis, CVA, Diverticulitis, Homicidal, Suicidal, threat to staff... and all critical care pts) @ -No - Lab Data Result diagrams: 03/11/23 09:01 03/11/23 09:01 Lab Results 03/11/23 03/11/23 03/11/23 Range/Units 09:01 09:01 09:01 WBC 5.7 (3.8-10.6) k/uL RBC 4.97 (3.80-5.40) m/uL Hgb 15.1 (11.4-16.0) gm/dL Hct 45.3 (34.0-46.0) % MCV 91.1 (80.0-100.0) fL MCH 30.4 (25.0-35.0) pg MCHC 33.3 (31.0-37.0) g/dL RDW 14.0 (11.5-15.5) % Plt Count 185 (150-450) k/uL MPV 8.1 Neutrophils % 56 % Lymphocytes % 29 % Monocytes % 6 % Eosinophils % 7 % Basophils % 1 % Neutrophils # 3.2 (1.3-7.7) k/uL Lymphocytes # 1.7 (1.0-4.8) k/uL Monocytes # 0.3 (0-1.0) k/uL Eosinophils # 0.4 (0-0.7) k/uL Basophils # 0.0 (0-0.2) k/uL Sodium 142 (137-145) mmol/L Potassium 4.2 (3.5-5.1) mmol/L Chloride 113 H (98-107) mmol/L Carbon Dioxide 20 L (22-30) mmol/L Anion Gap 9 mmol/L BUN 16 (7-17) mg/dL Creatinine 0.70 (0.52-1.04) mg/dL Est GFR (CKD-EPI)AfAm >90 (>60 ml/min/1.73 sqM) Est GFR (CKD-EPI)NonAf >90 (>60 ml/min/1.73 sqM) Glucose 99 (74-99) mg/dL Plasma Lactic Acid Jeff 1.2 (0.7-2.0) mmol/L Calcium 9.9 (8.4-10.2) mg/dL Magnesium 2.0 (1.6-2.3) mg/dL Total Bilirubin 0.6 (0.2-1.3) mg/dL AST 28 (14-36) U/L ALT 16 (4-34) U/L Alkaline Phosphatase 74 (38-126) U/L Total Protein 6.9 (6.3-8.2) g/dL Albumin 4.3 (3.5-5.0) g/dL Influenza Type A (PCR) (Not Detectd) Influenza Type B (PCR) (Not Detectd) RSV (PCR) (Not Detectd) SARS-CoV-2 (PCR) (Not Detectd) 03/11/23 Range/Units 09:01 WBC (3.8-10.6) k/uL RBC (3.80-5.40) m/uL Hgb (11.4-16.0) gm/dL Hct (34.0-46.0) % MCV (80.0-100.0) fL MCH (25.0-35.0) pg MCHC (31.0-37.0) g/dL RDW (11.5-15.5) % Plt Count (150-450) k/uL MPV Neutrophils % % Lymphocytes % % Monocytes % % Eosinophils % % Basophils % % Neutrophils # (1.3-7.7) k/uL Lymphocytes # (1.0-4.8) k/uL Monocytes # (0-1.0) k/uL Eosinophils # (0-0.7) k/uL Basophils # (0-0.2) k/uL Sodium (137-145) mmol/L Potassium (3.5-5.1) mmol/L Chloride (98-107) mmol/L Carbon Dioxide (22-30) mmol/L Anion Gap mmol/L BUN (7-17) mg/dL Creatinine (0.52-1.04) mg/dL Est GFR (CKD-EPI)AfAm (>60 ml/min/1.73 sqM) Est GFR (CKD-EPI)NonAf (>60 ml/min/1.73 sqM) Glucose (74-99) mg/dL Plasma Lactic Acid Jeff (0.7-2.0) mmol/L Calcium (8.4-10.2) mg/dL Magnesium (1.6-2.3) mg/dL Total Bilirubin (0.2-1.3) mg/dL AST (14-36) U/L ALT (4-34) U/L Alkaline Phosphatase (38-126) U/L Total Protein (6.3-8.2) g/dL Albumin (3.5-5.0) g/dL Influenza Type A (PCR) Not Detected (Not Detectd) Influenza Type B (PCR) Not Detected (Not Detectd) RSV (PCR) Not Detected (Not Detectd) SARS-CoV-2 (PCR) Not Detected (Not Detectd) Disposition Clinical Impression: COPD exacerbation Disposition: HOME SELF-CARE Condition: Stable Instructions (If sedation given, give patient instructions): COPD (Chronic Obstructive Pulmonary Disease) (ED) Additional Instructions: Please do follow-up with primary care physician in the next day or 2 for recheck. Also follow-up with your lung doctor. Prescriptions have been sent to pharmacy. Return for difficulty breathing, fevers, worsening or changing symptoms or other concerns. Prescriptions: predniSONE [Deltasone] 20 mg PO BID #10 tab Azithromycin [Zithromax Z Pack] 250 mg PO DAILY #6 tab Is patient prescribed a controlled substance at d/c from ED?: No Referrals: Zachary Ramos MD [Primary Care Provider] - 1-2 days Time of Disposition: 10:07
[2023-03-11 09:17] LABS: Basophils % (A) 1 %; Eosinophils # (A) 0.4 k/uL (0-0.7); Eosinophils % (A) 7 %; HCT 45.3 % (34.0-46.0); HGB 15.1 gm/dL (11.4-16.0); Lymphocytes # (A) 1.7 k/uL (1.0-4.8); Lymphocytes % (A) 29 %; MCH 30.4 pg (25.0-35.0); MCHC 33.3 g/dL (31.0-37.0); MCV 91.1 fL (80.0-100.0); Mean Platelet Volume 8.1; Monocytes # (A) 0.3 k/uL (0-1.0); Monocytes % (A) 6 %; Neutrophils # (A) 3.2 k/uL (1.3-7.7); Neutrophils % (A) 56 %; Platelet Count 185 k/uL (150-450); RBC 4.97 m/uL (3.80-5.40); WBC 5.7 k/uL (3.8-10.6)
[2023-03-11 09:34] LABS: ALT 16 U/L (4-34); AST 28 U/L (14-36); African American GFR (CKD) >90 (>60 ml/min/1.73 sqM); Albumin 4.3 g/dL (3.5-5.0); Alkaline Phosphatase 74 U/L (38-126); Anion Gap 9 mmol/L; Blood Urea Nitrogen 16 mg/dL (7-17); Calcium 9.9 mg/dL (8.4-10.2); Carbon Dioxide 20 mmol/L (22-30); Chloride 113 mmol/L (98-107); Glucose 99 mg/dL (74-99); Non-African American GFR(CKD) >90 (>60 ml/min/1.73 sqM); Potassium 4.2 mmol/L (3.5-5.1); Sodium 142 mmol/L (137-145); Total Bilirubin 0.6 mg/dL (0.2-1.3); Total Protein 6.9 g/dL (6.3-8.2)
--- NOTE | 2023-03-11 09:47 | XR ---
EXAMINATION TYPE: XR chest 2V DATE OF EXAM: 03/11/2023 COMPARISON: 09/29/2022 INDICATION: Difficulty breathing TECHNIQUE: Frontal and lateral views of the chest are obtained. FINDINGS: The heart size is normal. The pulmonary vasculature is normal. The lungs are clear. IMPRESSION: 1. No acute pulmonary process.
[2023-03-11 10:21] VITALS: BP 139/58; PULSE 78; TEMP 98
== END 2023-03-11 10:20 | disposition home or self-care (01) ==
LOC: EC 08:17
DX: J44.1 Chronic obstructive pulmonary disease with (acute) exacerbation (principal); Z20.822 Contact with and (suspected) exposure to COVID-19; Z88.2 Allergy status to sulfonamides; Z88.8 Allergy status to other drugs, medicaments and biological substances; Z88.5 Allergy status to narcotic agent; Z88.0 Allergy status to penicillin; Z91.013 Allergy to seafood
CPT/HCPCS: 36415; 94640; 93005; 80053; 83605; 83735; 85025; 87636; 71046; 99285; 96374; J2930

== ENCOUNTER → 2023-04-11 | Outpatient (CLI) | payer OTHER ==
[2023-04-11 19:55] LABS: Follicle Stimulating Hormone 95.1 mIU/mL
== END | disposition home or self-care (01) ==
LOC: LABWHC1 12:50
PROVIDERS: ATTEND Family Medicine
DX: N95.1 Menopausal and female climacteric states (principal)
CPT/HCPCS: 36415; 83001; 84146; 84443

== ENCOUNTER → 2023-04-19 | Outpatient (CLI) | payer OTHER ==
--- NOTE | 2023-04-19 13:12 | XR ---
EXAMINATION TYPE: XR chest 2V DATE OF EXAM: 04/19/2023 COMPARISON: 03/11/2023 HISTORY: Shortness of breath TECHNIQUE: Frontal and lateral views of the chest are obtained. FINDINGS: Scattered senescent parenchymal changes noted. Hyperinflation compatible with COPD. No evidence for infiltrate. No evidence for atelectasis. Heart size is stable. Mediastinal structures are stable and grossly unremarkable. No evidence for hilar prominence. Degenerative changes dorsal spine. IMPRESSION: 1. No evidence for acute pulmonary disease.
== END | disposition home or self-care (01) ==
LOC: RADXRMAIN 12:56
PROVIDERS: ATTEND Family Medicine
DX: J45.909 Unspecified asthma, uncomplicated (principal); R06.02 Shortness of breath
CPT/HCPCS: 71046

== ENCOUNTER 2023-04-27 20:12 | Emergency (ER) | payer OTHER ==
[2023-04-27 20:28] VITALS: TEMP 98.5
--- NOTE | 2023-04-27 20:37 | ED ---
SOB HPI - General Chief Complaint: Shortness of Breath Stated Complaint: RAJAN Time Seen by Provider: 04/27/23 20:22 Source: patient Mode of arrival: ambulatory Limitations: no limitations - History of Present Illness Initial Comments: This patient is a 57-year-old woman, with history of COPD here with cough and dyspnea. MD Complaint: shortness of breath, cough Onset/Timin -: days(s) Severity: mild Quality: burning Consistency: constant Improves With: nothing Worsens With: coughing Known History Of: COPD, asthma Associated Symptoms: cough, sputum production Treatments Prior to Arrival: bronchodilator - Related Data Home Oxygen Therapy: No Home Medications Medication Instructions Recorded Confirmed Albuterol Nebulized [Ventolin 2.5 mg INHALATION RT-Q4H PRN 05/08/22 09/26/22 Nebulized] Umeclidinium Brm/Vilanterol Tr 1 puff INHALATION RT-DAILY 07/11/22 09/26/22 [Anoro Ellipta 62.5-25 Mcg INH] Albuterol Inhaler [Ventolin Hfa 1 - 2 puff INHALATION RT-Q6H PRN 09/26/22 09/26/22 Inhaler] Anastrozole 1 mg PO DAILY 09/26/22 09/26/22 Previous Rx's Medication Instructions Recorded predniSONE [Deltasone] See Taper PO DAILY 12 Days #16 tab 10/01/22 Azithromycin [Zithromax Z Pack] 250 mg PO DAILY #6 tab 03/11/23 predniSONE [Deltasone] 20 mg PO BID #10 tab 03/11/23 Doxycycline [Vibramycin] 100 mg PO BID 1 Days #14 capsule 04/27/23 predniSONE 60 mg PO DAILY #30 tab 04/27/23 Allergies Allergy/AdvReac Type Severity Reaction Status Date / Time adhesive tape Allergy Itching Verified 03/11/23 08:35 clarithromycin [From Biaxin] Allergy Rash/Hives Verified 03/11/23 08:35 morphine Allergy Anaphylaxis Verified 03/11/23 08:35 NSAIDS (Non-Steroidal Allergy Unknown Verified 03/11/23 08:35 Anti-Inflamma Penicillins Allergy Rash/Hives Verified 03/11/23 08:35 shellfish derived [Shellfish] Allergy Anaphylaxis Verified 03/11/23 08:35 Sulfa (Sulfonamide Allergy Rash/Hives Verified 03/11/23 08:35 Antibiotics) Review of Systems ROS Statement: Those systems with pertinent positive or pertinent negative responses have been documented in the HPI. ROS Other: All systems not noted in ROS Statement are negative. Constitutional: Denies: fever, chills, weakness Respiratory: Reports: cough, dyspnea, wheezes. Denies: hemoptysis, stridor Cardiovascular: Reports: chest pain, dyspnea on exertion. Denies: palpitations, orthopnea, edema, syncope Gastrointestinal: Denies: abdominal pain, vomiting, diarrhea Genitourinary: Denies: dysuria, hematuria Musculoskeletal: Denies: back pain Skin: Denies: rash Neurological: Denies: headache, weakness, numbness Past Medical History Past Medical History: Asthma, Cancer, COPD, Eye Disorder, Hearing Disorder / Deafness Additional Past Medical History / Comment(s): Kidney stones, hx left breast cancer, cataracts, hard of hearing. History of Any Multi-Drug Resistant Organisms: None Reported Past Surgical History: Bariatric Surgery, Breast Surgery, Cholecystectomy, Ear Surgery, Hysterectomy, Tonsillectomy Additional Past Surgical History / Comment(s): Left breast lumpectomy and lymph node removal, left ear drum reconstruction. Past Alcohol Use History: None Reported - Past Family History Mother Additional Family Medical History / Comment(s): Brain cancer, pacemaker. Sister(s) Additional Family Medical History / Comment(s): "Heart issues" and had cardiac ablation. General Exam Limitations: no limitations General appearance: alert, in no apparent distress Head exam: Present: atraumatic, normocephalic Eye exam: Present: normal appearance. Absent: scleral icterus, conjunctival injection ENT exam: Present: normal oropharynx Neck exam: Present: normal inspection Respiratory exam: Present: wheezes. Absent: respiratory distress, rales, rhonchi, stridor, accessory muscle use Cardiovascular Exam: Present: regular rate, normal rhythm, normal heart sounds. Absent: systolic murmur, diastolic murmur, rubs, gallop GI/Abdominal exam: Present: soft. Absent: distended, tenderness, guarding, rebound, rigid, mass Extremities exam: Present: normal inspection, normal capillary refill. Absent: pedal edema, calf tenderness Back exam: Present: normal inspection. Absent: CVA tenderness (R), CVA tenderness (L) Neurological exam: Present: alert Skin exam: Present: warm, dry, intact, normal color. Absent: rash Course Vital Signs 04/27/23 04/27/23 04/27/23 20:15 22:17 22:26 Temperature 98.5 F Pulse Rate 99 88 92 Respiratory 22 Rate Blood Pressure 138/83 O2 Sat by Pulse 97 Oximetry 04/27/23 23:25 Temperature Pulse Rate 88 Respiratory 18 Rate Blood Pressure 116/63 O2 Sat by Pulse 95 Oximetry Medical Decision Making - Medical Decision Making The patient had chest x-ray that I interpreted as negative for acute infiltrate, pneumothorax, congestive heart failure Was pt. sent in by a medical professional or institution (, PA, HEALTH SAFETY ENGINEER, urgent care, hospital, or [facility]...) When possible be specific @ -[No] Did you speak to anyone other than the patient for history (EMS, parent, family, police, friend...)? What history was obtained from this source @ -[No] Did you review nursing and triage notes (agree or disagree)? Why? @ -[I reviewed and agree with nursing and triage notes] Were old charts reviewed (outside hosp., previous admission, EMS record, old EKG, old radiological studies, urgent care reports/EKG's, [facility] records)? Report findings @ -[No old charts were reviewed] Differential Diagnosis (chest pain, altered mental status, abdominal pain women, abdominal pain men, vaginal bleeding, weakness, fever, dyspnea, syncope, headache, dizziness, GI bleed, back pain, seizure, CVA, palpatations, mental health, musculoskeletal)? @ -[Differential Dyspnea: Coronary syndrome, arrhythmia, tamponade, asthma, COPD, pulmonary embolism, pneumonia, pneumothorax, pulmonary effusion, anaphylaxis, diabetic ketoacidosis, flailed chest, pulmonary contusion, diaphragmatic rupture, anemia, neuromuscular, this is not meant to be an all-inclusive list. EKG interpreted by me (3pts min.). @ -[I interpreted as above] X-rays interpreted by me (1pt min.). @ -[I interpreted as above CT interpreted by me (1pt min.). @ -[None done] U/S interpreted by me (1pt. min.). @ -[None done] What testing was considered but not performed or refused? (CT, X-rays, U/S, labs)? Why? @ -[None] What meds were considered but not given or refused? Why? @ -[None] Did you discuss the management of the patient with other professionals (professionals i.e. , PA, HEALTH SAFETY ENGINEER, lab, RT, psych nurse, social media analyst, grading machine feeder, teacher, corrections officer, family independence case manager)? Give summary @ -[No] Was smoking cessation discussed for >3mins.? @ -[No] Was critical care preformed (if so, how long)? @ -[No] Were there social determinants of health that impacted care today? How? (Homelessness, low income, unemployed, alcoholism, drug addiction, transporta tion, low edu. Level, literacy, decrease access to med. care, detention, rehab)? @ -[No] Was there de-escalation of care discussed even if they declined (Discuss DNR or withdrawal of care, Hospice)? DNR status @ -[No] What co-morbidities impacted this encounter? (DM, HTN, Smoking, COPD, CAD, Cancer, CVA, ARF, Chemo, Hep., AIDS, mental health diagnosis, sleep apnea, morbid obesity)? @ -[None] Was patient admitted / discharged? Hospital course, mention meds given and route, prescriptions, significant lab abnormalities, going to OR and other pertinent info. @ -[Patient is feeling better with treatment here. She would like to go home and continue as outpatient. We discussed further treatment, the follow-up and return parameters and all questions were answered. Undiagnosed new problem with uncertain prognosis? @ -[No] Drug Therapy requiring intensive monitoring for toxicity (Heparin, Nitro, Insulin, Cardizem)? @ -[No] Were any procedures done? @ -[No] Diagnosis/symptom? @ -[Acute exacerbation of COPD Acute, or Chronic, or Acute on Chronic? @ -[Acute on chronic Uncomplicated (without systemic symptoms) or Complicated (systemic symptoms)? @ -[Uncomplicated Side effects of treatment? @ -[No] Exacerbation, Progression, or Severe Exacerbation? @ -Exacerbation Poses a threat to life or bodily function? How? (Chest pain, [place], [place], pneumonia, PE, COPD, DKA, ARF, appy, cholecystitis, CVA, Diverticulitis, Homicidal, Suicidal, threat to staff... and all critical care pts) @ -[No] - Lab Data Result diagrams: 04/27/23 21:08 04/27/23 21:08 Lab Results 04/27/23 04/27/23 04/27/23 Range/Units 21:08 21:08 21:08 WBC 1.7 L (3.8-10.6) k/uL RBC 4.59 (3.80-5.40) m/uL Hgb 13.7 (11.4-16.0) gm/dL Hct 41.8 (34.0-46.0) % MCV 91.2 (80.0-100.0) fL MCH 29.9 (25.0-35.0) pg MCHC 32.8 (31.0-37.0) g/dL RDW 14.2 (11.5-15.5) % Plt Count 140 L (150-450) k/uL MPV 8.0 Neutrophils % 69 % Lymphocytes % 20 % Monocytes % 7 % Eosinophils % 2 % Basophils % 1 % Neutrophils # 1.2 L (1.3-7.7) k/uL Lymphocytes # 0.3 L (1.0-4.8) k/uL Monocytes # 0.1 (0-1.0) k/uL Eosinophils # 0.0 (0-0.7) k/uL Basophils # 0.0 (0-0.2) k/uL PT 10.7 (10.0-12.5) sec INR 1.0 (<1.2) APTT 27.2 (22.0-30.0) sec Sodium 138 (137-145) mmol/L Potassium 3.5 (3.5-5.1) mmol/L Chloride 110 H (98-107) mmol/L Carbon Dioxide 18 L (22-30) mmol/L Anion Gap 10 mmol/L BUN 15 (7-17) mg/dL Creatinine 0.66 (0.52-1.04) mg/dL Est GFR (CKD-EPI)AfAm >90 (>60 ml/min/1.73 sqM) Est GFR (CKD-EPI)NonAf >90 (>60 ml/min/1.73 sqM) Glucose 123 H (74-99) mg/dL Plasma Lactic Acid Jeff (0.7-2.0) mmol/L Calcium 9.0 (8.4-10.2) mg/dL Total Bilirubin 0.4 (0.2-1.3) mg/dL AST 32 (14-36) U/L ALT 16 (4-34) U/L Alkaline Phosphatase 74 (38-126) U/L Troponin I (0.000-0.034) ng/mL NT-Pro-B Natriuret Pep 102 pg/mL Total Protein 6.6 (6.3-8.2) g/dL Albumin 4.1 (3.5-5.0) g/dL Influenza Type A (PCR) (Not Detectd) Influenza Type B (PCR) (Not Detectd) RSV (PCR) (Not Detectd) SARS-CoV-2 (PCR) (Not Detectd) 04/27/23 04/27/23 04/27/23 Range/Units 21:08 21:08 21:08 WBC (3.8-10.6) k/uL RBC (3.80-5.40) m/uL Hgb (11.4-16.0) gm/dL Hct (34.0-46.0) % MCV (80.0-100.0) fL MCH (25.0-35.0) pg MCHC (31.0-37.0) g/dL RDW (11.5-15.5) % Plt Count (150-450) k/uL MPV Neutrophils % % Lymphocytes % % Monocytes % % Eosinophils % % Basophils % % Neutrophils # (1.3-7.7) k/uL Lymphocytes # (1.0-4.8) k/uL Monocytes # (0-1.0) k/uL Eosinophils # (0-0.7) k/uL Basophils # (0-0.2) k/uL PT (10.0-12.5) sec INR (<1.2) APTT (22.0-30.0) sec Sodium (137-145) mmol/L Potassium (3.5-5.1) mmol/L Chloride (98-107) mmol/L Carbon Dioxide (22-30) mmol/L Anion Gap mmol/L BUN (7-17) mg/dL Creatinine (0.52-1.04) mg/dL Est GFR (CKD-EPI)AfAm (>60 ml/min/1.73 sqM) Est GFR (CKD-EPI)NonAf (>60 ml/min/1.73 sqM) Glucose (74-99) mg/dL Plasma Lactic Acid Jeff 1.3 (0.7-2.0) mmol/L Calcium (8.4-10.2) mg/dL Total Bilirubin (0.2-1.3) mg/dL AST (14-36) U/L ALT (4-34) U/L Alkaline Phosphatase (38-126) U/L Troponin I <0.012 (0.000-0.034) ng/mL NT-Pro-B Natriuret Pep pg/mL Total Protein (6.3-8.2) g/dL Albumin (3.5-5.0) g/dL Influenza Type A (PCR) Not Detected (Not Detectd) Influenza Type B (PCR) Not Detected (Not Detectd) RSV (PCR) Not Detected (Not Detectd) SARS-CoV-2 (PCR) Not Detected (Not Detectd) - EKG Data -: EKG Interpreted by Ca EKG shows normal: sinus rhythm, axis (Normal), intervals (Normal), QRS complexes (Normal), ST-T waves (Normal) Rate: normal (Rate 74 bpm) Interpretation: normal EKG Disposition Clinical Impression: COPD exacerbation Disposition: HOME SELF-CARE Condition: Good Instructions (If sedation given, give patient instructions): COPD (Chronic Obstructive Pulmonary Disease) (ED) Prescriptions: predniSONE 60 mg PO DAILY #30 tab Doxycycline [Vibramycin] 100 mg PO BID 1 Days #14 capsule Is patient prescribed a controlled substance at d/c from ED?: No Referrals: Zachary Ramos MD [Primary Care Provider] - 1-2 days
[2023-04-27] MEDS: predniSONE 20 MG TAB PO STA (21:01)
[2023-04-27 21:37] LABS: Basophils % (A) 1 %; Eosinophils % (A) 2 %; HCT 41.8 % (34.0-46.0); HGB 13.7 gm/dL (11.4-16.0); Lymphocytes # (A) 0.3 k/uL (1.0-4.8); Lymphocytes % (A) 20 %; MCH 29.9 pg (25.0-35.0); MCHC 32.8 g/dL (31.0-37.0); MCV 91.2 fL (80.0-100.0); Monocytes # (A) 0.1 k/uL (0-1.0); Monocytes % (A) 7 %; Neutrophils # (A) 1.2 k/uL (1.3-7.7); Neutrophils % (A) 69 %; Platelet Count 140 k/uL (150-450); RBC 4.59 m/uL (3.80-5.40); RDW 14.2 % (11.5-15.5); WBC 1.7 k/uL (3.8-10.6)
[2023-04-27 21:46] LABS: ALT 16 U/L (4-34); AST 32 U/L (14-36); African American GFR (CKD) >90 (>60 ml/min/1.73 sqM); Albumin 4.1 g/dL (3.5-5.0); Alkaline Phosphatase 74 U/L (38-126); Anion Gap 10 mmol/L; Blood Urea Nitrogen 15 mg/dL (7-17); Carbon Dioxide 18 mmol/L (22-30); Chloride 110 mmol/L (98-107); Glucose 123 mg/dL (74-99); Non-African American GFR(CKD) >90 (>60 ml/min/1.73 sqM); Potassium 3.5 mmol/L (3.5-5.1); Sodium 138 mmol/L (137-145); Total Bilirubin 0.4 mg/dL (0.2-1.3); Total Protein 6.6 g/dL (6.3-8.2)
[2023-04-27 21:52] LABS: Partial Thromboplastin Time 27.2 sec (22.0-30.0); Prothrombin Time 10.7 sec (10.0-12.5)
[2023-04-27 21:54] LABS: NT-Pro-B-Type Natriuretic Pept 102 pg/mL
[2023-04-27] MEDS: IPRATROPIUM-ALBUTEROL 3 ML NEB INHALATION STA (22:17)
--- NOTE | 2023-04-27 22:52 | XR ---
EXAMINATION TYPE: XR chest 2V DATE OF EXAM: 04/27/2023 9:05 PM CLINICAL INDICATION:Female, 57 years old with history of difficulty breathing; [facility] COMPARISON: 04/19/2023 TECHNIQUE: XR chest 2V. Frontal and lateral views of the chest.. FINDINGS: Lines/Tubes/Devices: No indwelling lines are seen. Heart/mediastinum: Heart size is normal. Mediastinum appears normal. Pulmonary vascularity: Not increased, Lungs/Pleura: Mild hyperinflation with mild interstitial changes again seen suggesting chronic lung d isease. No evidence of focal consolidation, sizeable pleural effusion, or pneumothorax. Musculoskeletal: No acute osseous abnormality demonstrated in the limits of the exam. Mild degenerat janeth changes. Other findings: Surgical clips over the inferolateral aspect of the chest on the right, could be from lumpectomy. IMPRESSION: No acute cardiopulmonary abnormality.
[2023-04-27 23:55] VITALS: BP 116/63; PULSE 88; RESP 18
== END 2023-04-27 23:26 | disposition home or self-care (01) ==
LOC: EC 20:12
DX: J44.1 Chronic obstructive pulmonary disease with (acute) exacerbation (principal); Z79.51 Long term (current) use of inhaled steroids; Z88.0 Allergy status to penicillin; Z88.2 Allergy status to sulfonamides; Z88.5 Allergy status to narcotic agent; Z88.6 Allergy status to analgesic agent; Z91.048 Other nonmedicinal substance allergy status; Z91.013 Allergy to seafood
CPT/HCPCS: 36415; 94640; 93005; 83880; 80053; 83605; 84484; 85025; 85610; 85730; 87636; 71046; 99285; J7512

== ENCOUNTER → 2023-11-26 | Outpatient (CLI) | payer OTHER ==
--- NOTE | 2023-11-26 07:42 | MM ---
Reason for Exam: Hx of breast cancer, conservation therapy. Last mammogram was performed 1 year(s) and 2 month(s) ago. Patient History: Menarche at age 15. First Full-Term at age 32. Late child-bearing (after 32). Postmenopausal. Breast cancer, right, age 54. 2019, Lumpectomy on the Right side. Prior Study Comparison: 10/21/2019 Bilateral Diagnostic Mammogram, Unknown. 04/20/2020 Bilateral Diagnostic Mammogram, Unknown. 04/21/2021 Bilateral Diagnostic Mammogram, Unknown. 09/19/2022 Bilateral MG 3D diag mammo w/cad [facility], [facility]. Tissue Density: There are scattered areas of fibroglandular density. Findings: Analyzed By CAD. Right breast surgical clips. No new suspicious masses, calcifications or distortions. Overall Assessment: Benign, BI-RAD 2 Management: Diagnostic Mammogram of both breasts in 1 year. Results were given to the patient verbally at the time of exam. Patient should continue monthly self-breast exams. A clinical breast exam by your physician is recommended on an annual basis. This exam should not preclude additional follow-up of suspicious palpable abnormalities. Note on Jeanette scores and lifetime risk: 1. A Jeanette score greater than 3% is considered moderate risk. If this is the case, consider specialist referral to assess eligibility for a risk reducing agent. 2. If overall lifetime risk for the development of breast cancer is 20% or higher, the patient may qualify for future screening with alternating mammogram and breast MRI. [facility], , 11/26/2023 7:36 AM. Electronically signed and approved by: Herbie Marcus DO
== END | disposition home or self-care (01) ==
LOC: RADMAMWWP 07:15
PROVIDERS: ATTEND Internal Medicine
DX: Z85.3 Personal history of malignant neoplasm of breast
CPT/HCPCS: 77062; 77066

== ENCOUNTER → 2024-05-19 | Outpatient (CLI) | payer BC, OTHER ==
--- NOTE | 2024-05-19 17:07 | XR ---
EXAMINATION TYPE: XR chest 2V DATE OF EXAM: 05/19/2024 CLINICAL INDICATION: Female, 58 years old with history of J45.909, R06.2, TECHNIQUE: Frontal and lateral views of the chest are obtained. COMPARISON: Chest x-ray April 27, 2023 FINDINGS: There is no focal air space opacity, pleural effusion, or pneumothorax seen. The cardiac silhouette size is stable and within normal limits. The osseous structures are intact. Surgical cli ps in the overlying right breast are redemonstrated. IMPRESSION: No acute cardiopulmonary process. [facility], , 05/19/2024 5:05 PM
== END | disposition home or self-care (01) ==
LOC: RADXRMAIN 16:44
PROVIDERS: ATTEND Family Medicine
DX: J45.909 Unspecified asthma, uncomplicated (principal)
CPT/HCPCS: 71046